=== PATIENT | female | born 1950 | race Caucasian/White ===

== ENCOUNTER → 2020-08-19 10:15 | Outpatient (BNV) | payer MEDICARE, MEDICAID, SELFPAY | PROVIDERS: PCP Internal Medicine; Visit Provider Internal Medicine Medical Oncology | DX: I26.99 Other pulmonary embolism without acute cor pulmonale (principal); D51.9 Vitamin B12 deficiency anemia, unspecified; D05.11 Intraductal carcinoma in situ of right breast | CPT/HCPCS: 99213; 99214 ==

== ENCOUNTER → 2020-09-01 08:16 | Outpatient (BNVA) | payer MEDICARE, MEDICAID, SELFPAY | PROVIDERS: PCP Internal Medicine; Visit Provider Internal Medicine | DX: I26.99 Other pulmonary embolism without acute cor pulmonale (principal); Z86.718 Personal history of other venous thrombosis and embolism; Z51.81 Encounter for therapeutic drug level monitoring; Z79.01 Long term (current) use of anticoagulants | CPT/HCPCS: 85610; 99211 ==

== ENCOUNTER → 2020-09-22 10:32 | Outpatient (BNVA) | payer MEDICARE, MEDICAID, SELFPAY | PROVIDERS: PCP Internal Medicine; Visit Provider Internal Medicine | DX: I26.99 Other pulmonary embolism without acute cor pulmonale (principal); Z86.718 Personal history of other venous thrombosis and embolism; Z51.81 Encounter for therapeutic drug level monitoring; Z79.01 Long term (current) use of anticoagulants | CPT/HCPCS: 85610; 99211 ==

== ENCOUNTER → 2020-10-13 10:14 | Outpatient (BNVA) | payer MEDICARE, MEDICAID, SELFPAY | PROVIDERS: PCP Internal Medicine; Visit Provider Internal Medicine | DX: I26.99 Other pulmonary embolism without acute cor pulmonale (principal); Z86.718 Personal history of other venous thrombosis and embolism; Z51.81 Encounter for therapeutic drug level monitoring; Z79.01 Long term (current) use of anticoagulants | CPT/HCPCS: 85610; 99211 ==

== ENCOUNTER → 2020-10-27 11:01 | Outpatient (BNVA) | payer MEDICARE, MEDICAID, SELFPAY | PROVIDERS: PCP Internal Medicine; Visit Provider Internal Medicine | DX: I26.99 Other pulmonary embolism without acute cor pulmonale (principal); Z86.718 Personal history of other venous thrombosis and embolism; Z51.81 Encounter for therapeutic drug level monitoring; Z79.01 Long term (current) use of anticoagulants | CPT/HCPCS: 85610; 99211 ==

== ENCOUNTER → 2020-11-02 10:30 | Outpatient (BNVA) | payer MEDICARE, MEDICAID, SELFPAY | PROVIDERS: PCP Internal Medicine; Visit Provider Internal Medicine | DX: I26.99 Other pulmonary embolism without acute cor pulmonale (principal); I82.402 Acute embolism and thrombosis of unspecified deep veins of left lower extremity; Z51.81 Encounter for therapeutic drug level monitoring; Z79.01 Long term (current) use of anticoagulants | CPT/HCPCS: 85610; 99211 ==

== ENCOUNTER → 2020-11-08 09:26 | Outpatient (BNVA) | payer MEDICARE, MEDICAID, SELFPAY | PROVIDERS: PCP Internal Medicine; Visit Provider Internal Medicine | DX: I26.99 Other pulmonary embolism without acute cor pulmonale (principal); Z86.718 Personal history of other venous thrombosis and embolism; Z51.81 Encounter for therapeutic drug level monitoring; Z79.01 Long term (current) use of anticoagulants | CPT/HCPCS: 85610; 99211 ==

== ENCOUNTER → 2020-11-12 09:20 | Outpatient (BNVA) | payer MEDICARE, MEDICAID, SELFPAY | PROVIDERS: PCP Internal Medicine; Visit Provider Internal Medicine | DX: I26.99 Other pulmonary embolism without acute cor pulmonale (principal); Z86.718 Personal history of other venous thrombosis and embolism; Z79.01 Long term (current) use of anticoagulants; Z51.81 Encounter for therapeutic drug level monitoring | CPT/HCPCS: 85610; 99211 ==

== ENCOUNTER → 2020-11-19 08:59 | Outpatient (BNVA) | payer MEDICARE, MEDICAID, SELFPAY | PROVIDERS: PCP Internal Medicine; Visit Provider Internal Medicine | DX: I82.402 Acute embolism and thrombosis of unspecified deep veins of left lower extremity (principal); I26.99 Other pulmonary embolism without acute cor pulmonale; Z51.81 Encounter for therapeutic drug level monitoring; Z79.01 Long term (current) use of anticoagulants | CPT/HCPCS: 85610; 99211 ==

== ENCOUNTER → 2020-11-23 09:04 | Outpatient (BNVA) | payer MEDICARE, MEDICAID, SELFPAY | PROVIDERS: PCP Internal Medicine; Visit Provider Surgery | DX: N39.41 Urge incontinence (principal) | CPT/HCPCS: 99212; Q3014 ==

== ENCOUNTER → 2020-12-03 08:42 | Outpatient (BNVA) | payer MEDICARE, MEDICAID, SELFPAY | PROVIDERS: PCP Internal Medicine; Visit Provider Internal Medicine | DX: I82.402 Acute embolism and thrombosis of unspecified deep veins of left lower extremity (principal); I26.99 Other pulmonary embolism without acute cor pulmonale; Z51.81 Encounter for therapeutic drug level monitoring; Z79.01 Long term (current) use of anticoagulants | CPT/HCPCS: 85610; 99211 ==

== ENCOUNTER 2020-12-17 09:29 | Outpatient (REF) | payer MEDICARE, MEDICAID, SELFPAY ==
[2020-12-17 11:24] LABS: Cholesterol 213 mg/dL; HDL Cholesterol 53 mg/dL; LDL Cholesterol Calculated 137 mg/dl; Triglycerides 115 mg/dL
== END 2020-12-17 09:30 | disposition home or self-care (01) ==
LOC: HO.LAB 09:29
PROVIDERS: PCP Internal Medicine; Visit Provider Internal Medicine
DX: Z86.718 Personal history of other venous thrombosis and embolism (principal); E78.5 Hyperlipidemia, unspecified; Z51.81 Encounter for therapeutic drug level monitoring; Z79.01 Long term (current) use of anticoagulants
CPT/HCPCS: 36415; 80061; 85610; 99211

== ENCOUNTER → 2021-01-07 10:10 | Outpatient (BNVA) | payer MEDICARE, MEDICAID, SELFPAY | PROVIDERS: PCP Internal Medicine; Visit Provider Internal Medicine | DX: I26.99 Other pulmonary embolism without acute cor pulmonale (principal); Z86.718 Personal history of other venous thrombosis and embolism; Z51.81 Encounter for therapeutic drug level monitoring; Z79.01 Long term (current) use of anticoagulants | CPT/HCPCS: 85610; 99211 ==

== ENCOUNTER → 2021-02-04 09:30 | Outpatient (BNVA) | payer MEDICARE, MEDICAID, SELFPAY | PROVIDERS: PCP Internal Medicine; Visit Provider Internal Medicine | DX: I26.99 Other pulmonary embolism without acute cor pulmonale (principal); Z86.718 Personal history of other venous thrombosis and embolism; Z79.01 Long term (current) use of anticoagulants; Z51.81 Encounter for therapeutic drug level monitoring | CPT/HCPCS: 85610; 99211 ==

== ENCOUNTER 2021-02-08 09:45 | Outpatient (REF) | payer MEDICARE, MEDICAID, SELFPAY ==
--- NOTE | ~2021-02-08 | MM_ITS ---
EXAMINATION: MM SCREENING DIGITAL BREAST TOMOSYNTHESIS, LEFT CLINICAL INFORMATION: Screening. Asymptomatic. Prior right mastectomy 2011 for breast cancer. Due for yearly. COMPARISON: Mammography: 10/01/2018, 09/13/2017, 09/11/2016 TECHNIQUE: Digital breast tomosynthesis is performed in both the craniocaudal and mediolateral oblique views along with computer-aided detection (CAD). Synthesized 2D images are generated from the tomosynthesis. FINDINGS: There are scattered areas of fibroglandular density (ACR BI-RADS breast composition Category b). There are no significant masses, abnormal calcifications, or other abnormalities. Parenchymal pattern is similar to prior studies. The skin contours are smooth. MM/MM tomosynthesis screening LT IMPRESSION: No mammographic evidence of malignancy. ASSESSMENT: BI-RADS 1: Negative RECOMMENDATION: Routine annual mammography screening. This patient's information was entered into a reminder system with a target due date for their next mammogram.
== END 2021-02-08 09:46 | disposition home or self-care (01) ==
LOC: HO.MAMMO 09:45
PROVIDERS: PCP Internal Medicine; Visit Provider Surgery
DX: Z12.31 Encounter for screening mammogram for malignant neoplasm of breast (principal)
CPT/HCPCS: 77063; 77067

== ENCOUNTER → 2021-02-16 09:17 | Outpatient (BNVA) | payer MEDICARE, MEDICAID, SELFPAY | PROVIDERS: PCP Internal Medicine; Visit Provider Internal Medicine | DX: Z86.718 Personal history of other venous thrombosis and embolism (principal); Z79.01 Long term (current) use of anticoagulants; Z51.81 Encounter for therapeutic drug level monitoring | CPT/HCPCS: 85610; 99211 ==

== ENCOUNTER → 2021-03-02 08:59 | Outpatient (BNVA) | payer MEDICARE, MEDICAID, SELFPAY | PROVIDERS: PCP Internal Medicine; Visit Provider Internal Medicine | DX: I26.99 Other pulmonary embolism without acute cor pulmonale (principal); Z86.718 Personal history of other venous thrombosis and embolism; Z51.81 Encounter for therapeutic drug level monitoring; Z79.01 Long term (current) use of anticoagulants | CPT/HCPCS: 85610; 99211 ==

== ENCOUNTER → 2021-03-07 08:32 | Outpatient (BNVA) | payer MEDICARE, MEDICAID, SELFPAY | PROVIDERS: PCP Internal Medicine; Visit Provider Internal Medicine | DX: I26.99 Other pulmonary embolism without acute cor pulmonale (principal); Z86.718 Personal history of other venous thrombosis and embolism; Z51.81 Encounter for therapeutic drug level monitoring; Z79.01 Long term (current) use of anticoagulants | CPT/HCPCS: 85610; 99211 ==

== ENCOUNTER → 2021-03-21 08:27 | Outpatient (BNVA) | payer MEDICARE, MEDICAID, SELFPAY | PROVIDERS: PCP Internal Medicine; Visit Provider Internal Medicine | DX: I26.99 Other pulmonary embolism without acute cor pulmonale (principal); Z86.718 Personal history of other venous thrombosis and embolism; Z51.81 Encounter for therapeutic drug level monitoring; Z79.01 Long term (current) use of anticoagulants | CPT/HCPCS: 85610; 99211 ==

== ENCOUNTER → 2021-03-25 09:47 | Outpatient (BNVA) | payer MEDICARE, MEDICAID, SELFPAY | PROVIDERS: PCP Internal Medicine; Visit Provider Internal Medicine | DX: I26.99 Other pulmonary embolism without acute cor pulmonale (principal); Z86.718 Personal history of other venous thrombosis and embolism; Z51.81 Encounter for therapeutic drug level monitoring; Z79.01 Long term (current) use of anticoagulants | CPT/HCPCS: 85610; 99211 ==

== ENCOUNTER → 2021-04-01 08:34 | Outpatient (BNVA) | payer MEDICARE, MEDICAID, SELFPAY | PROVIDERS: PCP Internal Medicine; Visit Provider Internal Medicine | DX: I26.99 Other pulmonary embolism without acute cor pulmonale (principal); Z86.718 Personal history of other venous thrombosis and embolism; Z51.81 Encounter for therapeutic drug level monitoring; Z79.01 Long term (current) use of anticoagulants | CPT/HCPCS: 85610; 99211 ==

== ENCOUNTER → 2021-04-14 08:35 | Outpatient (BNVA) | payer MEDICARE, MEDICAID, SELFPAY | PROVIDERS: PCP Internal Medicine; Visit Provider Internal Medicine | DX: I26.99 Other pulmonary embolism without acute cor pulmonale (principal); Z86.718 Personal history of other venous thrombosis and embolism; Z51.81 Encounter for therapeutic drug level monitoring; Z79.01 Long term (current) use of anticoagulants | CPT/HCPCS: 85610; 99211 ==

== ENCOUNTER → 2021-05-05 08:48 | Outpatient (BNVA) | payer MEDICARE, MEDICAID, SELFPAY | PROVIDERS: PCP Internal Medicine; Visit Provider Internal Medicine | DX: I26.99 Other pulmonary embolism without acute cor pulmonale (principal); Z86.718 Personal history of other venous thrombosis and embolism; Z51.81 Encounter for therapeutic drug level monitoring; Z79.01 Long term (current) use of anticoagulants | CPT/HCPCS: 85610; 99211 ==

== ENCOUNTER → 2021-05-19 08:40 | Outpatient (BNVA) | payer MEDICARE, MEDICAID, SELFPAY | PROVIDERS: PCP Internal Medicine; Visit Provider Internal Medicine | DX: I26.99 Other pulmonary embolism without acute cor pulmonale (principal); Z86.73 Personal history of transient ischemic attack (TIA), and cerebral infarction without residual deficits; Z51.81 Encounter for therapeutic drug level monitoring; Z79.01 Long term (current) use of anticoagulants | CPT/HCPCS: 85610; 99211 ==

== ENCOUNTER → 2021-06-02 08:41 | Outpatient (BNVA) | payer MEDICARE, MEDICAID, SELFPAY | PROVIDERS: PCP Internal Medicine; Visit Provider Internal Medicine | DX: I26.99 Other pulmonary embolism without acute cor pulmonale (principal); Z86.718 Personal history of other venous thrombosis and embolism; Z79.01 Long term (current) use of anticoagulants; Z51.81 Encounter for therapeutic drug level monitoring | CPT/HCPCS: 85610; 99211 ==

== ENCOUNTER → 2021-06-23 08:38 | Outpatient (BNVA) | payer MEDICARE, MEDICAID, SELFPAY | PROVIDERS: PCP Internal Medicine; Visit Provider Internal Medicine | DX: I26.99 Other pulmonary embolism without acute cor pulmonale (principal); Z86.718 Personal history of other venous thrombosis and embolism; Z51.81 Encounter for therapeutic drug level monitoring; Z79.01 Long term (current) use of anticoagulants | CPT/HCPCS: 85610; 99211 ==

== ENCOUNTER 2021-06-25 07:40 | Outpatient (REF) | payer MEDICARE, MEDICAID, SELFPAY ==
[2021-06-25 08:24] LABS: Prothrombin Time 23.6 SEC (9.9-13.0)
== END 2021-06-25 07:41 | disposition home or self-care (01) ==
LOC: HO.LAB 07:40
PROVIDERS: PCP Internal Medicine; Visit Provider Internal Medicine
DX: Z51.81 Encounter for therapeutic drug level monitoring (principal)
CPT/HCPCS: 36415; 85610

== ENCOUNTER → 2021-06-28 08:26 | Outpatient (BNVA) | payer MEDICARE, MEDICAID, SELFPAY | PROVIDERS: PCP Internal Medicine; Visit Provider Internal Medicine | DX: I26.99 Other pulmonary embolism without acute cor pulmonale (principal); Z86.718 Personal history of other venous thrombosis and embolism; Z51.81 Encounter for therapeutic drug level monitoring; Z79.01 Long term (current) use of anticoagulants | CPT/HCPCS: 85610; 99211 ==

== ENCOUNTER → 2021-07-12 08:43 | Outpatient (BNVA) | payer MEDICARE, MEDICAID, SELFPAY | PROVIDERS: PCP Internal Medicine; Visit Provider Internal Medicine | DX: I26.99 Other pulmonary embolism without acute cor pulmonale (principal); Z86.718 Personal history of other venous thrombosis and embolism; Z51.81 Encounter for therapeutic drug level monitoring; Z79.01 Long term (current) use of anticoagulants | CPT/HCPCS: 85610; 99211 ==

== ENCOUNTER → 2021-07-26 08:45 | Outpatient (BNVA) | payer MEDICARE, MEDICAID, SELFPAY | PROVIDERS: PCP Internal Medicine; Visit Provider Internal Medicine | DX: I26.99 Other pulmonary embolism without acute cor pulmonale (principal); Z86.718 Personal history of other venous thrombosis and embolism; Z51.81 Encounter for therapeutic drug level monitoring; Z79.01 Long term (current) use of anticoagulants | CPT/HCPCS: 85610; 99211 ==

== ENCOUNTER → 2021-08-16 08:42 | Outpatient (BNVA) | payer MEDICARE, MEDICAID, SELFPAY | PROVIDERS: PCP Internal Medicine; Visit Provider Internal Medicine | DX: Z86.718 Personal history of other venous thrombosis and embolism (principal); Z51.81 Encounter for therapeutic drug level monitoring; Z79.01 Long term (current) use of anticoagulants | CPT/HCPCS: 85610 ==

== ENCOUNTER → 2021-09-13 08:39 | Outpatient (BNVA) | payer MEDICARE, MEDICAID, SELFPAY | PROVIDERS: PCP Internal Medicine; Visit Provider Internal Medicine | DX: I26.99 Other pulmonary embolism without acute cor pulmonale (principal); Z86.718 Personal history of other venous thrombosis and embolism; Z51.81 Encounter for therapeutic drug level monitoring; Z79.01 Long term (current) use of anticoagulants | CPT/HCPCS: 85610; 99211 ==

== ENCOUNTER → 2021-10-11 08:38 | Outpatient (BNVA) | payer MEDICARE, MEDICAID, SELFPAY | PROVIDERS: PCP Internal Medicine; Visit Provider Internal Medicine | DX: I26.99 Other pulmonary embolism without acute cor pulmonale (principal); Z86.718 Personal history of other venous thrombosis and embolism; Z51.81 Encounter for therapeutic drug level monitoring; Z79.01 Long term (current) use of anticoagulants | CPT/HCPCS: 85610; 99211 ==

== ENCOUNTER → 2021-11-08 08:39 | Outpatient (BNVA) | payer MEDICARE, MEDICAID, SELFPAY | PROVIDERS: PCP Internal Medicine; Visit Provider Internal Medicine | DX: I26.99 Other pulmonary embolism without acute cor pulmonale (principal); Z86.718 Personal history of other venous thrombosis and embolism; Z51.81 Encounter for therapeutic drug level monitoring; Z79.01 Long term (current) use of anticoagulants | CPT/HCPCS: 85610; 99211 ==

== ENCOUNTER → 2021-11-22 08:48 | Outpatient (BNVA) | payer MEDICARE, MEDICAID, SELFPAY | PROVIDERS: PCP Internal Medicine; Visit Provider Internal Medicine | DX: I26.99 Other pulmonary embolism without acute cor pulmonale (principal); Z86.718 Personal history of other venous thrombosis and embolism; Z51.81 Encounter for therapeutic drug level monitoring; Z79.01 Long term (current) use of anticoagulants | CPT/HCPCS: 85610; 99211 ==

== ENCOUNTER → 2021-11-24 08:42 | Outpatient (BNVA) | payer MEDICARE, MEDICAID, SELFPAY | PROVIDERS: PCP Internal Medicine; Visit Provider Internal Medicine | DX: I26.99 Other pulmonary embolism without acute cor pulmonale (principal); Z86.718 Personal history of other venous thrombosis and embolism; Z51.81 Encounter for therapeutic drug level monitoring; Z79.01 Long term (current) use of anticoagulants | CPT/HCPCS: 85610; 99211 ==

== ENCOUNTER → 2021-12-08 08:43 | Outpatient (BNVA) | payer MEDICARE, MEDICAID, SELFPAY | PROVIDERS: PCP Internal Medicine; Visit Provider Internal Medicine | DX: I26.99 Other pulmonary embolism without acute cor pulmonale (principal); Z86.718 Personal history of other venous thrombosis and embolism; Z51.81 Encounter for therapeutic drug level monitoring; Z79.01 Long term (current) use of anticoagulants | CPT/HCPCS: 85610; 99211 ==

== ENCOUNTER 2021-12-23 08:20 | Outpatient (REF) | payer MEDICARE, MEDICAID, SELFPAY ==
--- NOTE | ~2021-12-23 | XR_ITS ---
EXAMINATION: XR FOOT, RIGHT CLINICAL INFORMATION: Right toe pain. COMPARISON: 05/05/2019. TECHNIQUE: AP, lateral, and oblique views of the right foot. FINDINGS: There is osteopenia. No acute fracture or dislocation is evident. Patient appears be status post previous surgery about the 1st metatarsophalangeal joint. There is degenerative joint disease involving the 1st metatarsophalangeal joint with loss of joint space and marginal sclerosis and spurring. Small plantar and Achilles calcaneal spurs are present. The degenerative change of the first toe has progressed since study of 05/05/2019. XR/XR foot RT min 3V IMPRESSION: Osteopenia. Progression of degenerative joint disease involving the 1st metatarsophalangeal joint. No acute fracture or dislocation is evident. Calcaneal spurs.
== END 2021-12-23 08:21 | disposition home or self-care (01) ==
LOC: HO.XRAY 08:20
PROVIDERS: Absent Provider Internal Medicine; PCP Internal Medicine; Visit Provider Internal Medicine
DX: I26.99 Other pulmonary embolism without acute cor pulmonale (principal); Z86.718 Personal history of other venous thrombosis and embolism; Z51.81 Encounter for therapeutic drug level monitoring; Z79.01 Long term (current) use of anticoagulants; M79.674 Pain in right toe(s)
CPT/HCPCS: 73630; 85610; 99211

== ENCOUNTER → 2021-12-29 13:27 | Outpatient (BNVA) | payer MEDICARE, MEDICAID, SELFPAY | PROVIDERS: PCP Internal Medicine; Visit Provider Internal Medicine | DX: I26.99 Other pulmonary embolism without acute cor pulmonale (principal); Z86.718 Personal history of other venous thrombosis and embolism; Z51.81 Encounter for therapeutic drug level monitoring; Z79.01 Long term (current) use of anticoagulants | CPT/HCPCS: 85610; 99211 ==

== ENCOUNTER → 2022-01-10 08:44 | Outpatient (BNVA) | payer MEDICARE, MEDICAID, SELFPAY | PROVIDERS: PCP Internal Medicine; Visit Provider Internal Medicine | DX: I26.99 Other pulmonary embolism without acute cor pulmonale (principal); Z86.718 Personal history of other venous thrombosis and embolism; Z51.81 Encounter for therapeutic drug level monitoring; Z79.01 Long term (current) use of anticoagulants | CPT/HCPCS: 85610; 99211 ==

== ENCOUNTER → 2022-01-23 08:36 | Outpatient (BNVA) | payer MEDICARE, MEDICAID, SELFPAY | PROVIDERS: PCP Internal Medicine; Visit Provider Internal Medicine | DX: I26.99 Other pulmonary embolism without acute cor pulmonale (principal); Z86.718 Personal history of other venous thrombosis and embolism; Z79.01 Long term (current) use of anticoagulants; Z51.81 Encounter for therapeutic drug level monitoring | CPT/HCPCS: 85610; 99211 ==

== ENCOUNTER → 2022-01-30 09:45 | Outpatient (BNVA) | payer MEDICARE, MEDICAID, SELFPAY | PROVIDERS: PCP Internal Medicine; Visit Provider Internal Medicine | DX: I26.99 Other pulmonary embolism without acute cor pulmonale (principal); Z86.718 Personal history of other venous thrombosis and embolism; Z51.81 Encounter for therapeutic drug level monitoring; Z79.01 Long term (current) use of anticoagulants | CPT/HCPCS: 85610 ==

== ENCOUNTER → 2022-02-03 08:46 | Outpatient (BNVA) | payer MEDICARE, MEDICAID, SELFPAY | PROVIDERS: PCP Internal Medicine; Visit Provider Internal Medicine | DX: I26.99 Other pulmonary embolism without acute cor pulmonale (principal); Z86.718 Personal history of other venous thrombosis and embolism; Z51.81 Encounter for therapeutic drug level monitoring; Z79.01 Long term (current) use of anticoagulants | CPT/HCPCS: 85610; 99211 ==

== ENCOUNTER → 2022-02-13 08:39 | Outpatient (BNVA) | payer MEDICARE, MEDICAID, SELFPAY | PROVIDERS: PCP Internal Medicine; Visit Provider Internal Medicine | DX: I26.99 Other pulmonary embolism without acute cor pulmonale (principal); Z86.718 Personal history of other venous thrombosis and embolism; Z51.81 Encounter for therapeutic drug level monitoring; Z79.01 Long term (current) use of anticoagulants | CPT/HCPCS: 85610; 99211 ==

== ENCOUNTER → 2022-02-27 09:06 | Outpatient (BNVA) | payer MEDICARE, MEDICAID, SELFPAY | PROVIDERS: PCP Internal Medicine; Visit Provider Internal Medicine | DX: I26.99 Other pulmonary embolism without acute cor pulmonale (principal); Z86.718 Personal history of other venous thrombosis and embolism; Z79.01 Long term (current) use of anticoagulants; Z51.81 Encounter for therapeutic drug level monitoring | CPT/HCPCS: 85610; 99211 ==

== ENCOUNTER → 2022-03-06 08:43 | Outpatient (BNVA) | payer MEDICARE, MEDICAID, SELFPAY | PROVIDERS: PCP Internal Medicine; Visit Provider Internal Medicine | DX: I26.99 Other pulmonary embolism without acute cor pulmonale (principal); Z86.718 Personal history of other venous thrombosis and embolism; Z79.01 Long term (current) use of anticoagulants; Z51.81 Encounter for therapeutic drug level monitoring | CPT/HCPCS: 85610; 99211 ==

== ENCOUNTER → 2022-03-13 08:44 | Outpatient (BNVA) | payer MEDICARE, MEDICAID, SELFPAY | PROVIDERS: PCP Internal Medicine; Visit Provider Internal Medicine | DX: I26.99 Other pulmonary embolism without acute cor pulmonale (principal); Z86.718 Personal history of other venous thrombosis and embolism; Z79.01 Long term (current) use of anticoagulants; Z51.81 Encounter for therapeutic drug level monitoring | CPT/HCPCS: 85610; 99211 ==

== ENCOUNTER → 2022-03-27 08:56 | Outpatient (BNVA) | payer MEDICARE, MEDICAID, SELFPAY | PROVIDERS: PCP Internal Medicine; Visit Provider Internal Medicine | DX: I26.99 Other pulmonary embolism without acute cor pulmonale (principal); Z86.718 Personal history of other venous thrombosis and embolism; Z79.01 Long term (current) use of anticoagulants; Z51.81 Encounter for therapeutic drug level monitoring | CPT/HCPCS: 85610; 99211 ==

== ENCOUNTER → 2022-04-07 08:39 | Outpatient (BNVA) | payer MEDICARE, MEDICAID, SELFPAY | PROVIDERS: PCP Internal Medicine; Visit Provider Internal Medicine | DX: I26.99 Other pulmonary embolism without acute cor pulmonale (principal); Z86.718 Personal history of other venous thrombosis and embolism; Z79.01 Long term (current) use of anticoagulants; Z51.81 Encounter for therapeutic drug level monitoring | CPT/HCPCS: 85610; 99211 ==

== ENCOUNTER → 2022-04-20 08:36 | Outpatient (BNVA) | payer MEDICARE, MEDICAID, SELFPAY | PROVIDERS: PCP Internal Medicine; Visit Provider Internal Medicine | DX: I26.99 Other pulmonary embolism without acute cor pulmonale (principal); Z86.718 Personal history of other venous thrombosis and embolism; Z79.01 Long term (current) use of anticoagulants; Z51.81 Encounter for therapeutic drug level monitoring | CPT/HCPCS: 85610; 99211 ==

== ENCOUNTER → 2022-04-24 08:38 | Outpatient (BNVA) | payer MEDICARE, MEDICAID, SELFPAY | PROVIDERS: PCP Internal Medicine; Visit Provider Internal Medicine | DX: I26.99 Other pulmonary embolism without acute cor pulmonale (principal); Z86.718 Personal history of other venous thrombosis and embolism; Z79.01 Long term (current) use of anticoagulants; Z51.81 Encounter for therapeutic drug level monitoring | CPT/HCPCS: 85610; 99211 ==

== ENCOUNTER → 2022-04-27 08:44 | Outpatient (BNVA) | payer MEDICARE, MEDICAID, SELFPAY | PROVIDERS: PCP Internal Medicine; Visit Provider Internal Medicine | DX: I26.99 Other pulmonary embolism without acute cor pulmonale (principal); Z86.718 Personal history of other venous thrombosis and embolism; Z51.81 Encounter for therapeutic drug level monitoring; Z79.01 Long term (current) use of anticoagulants | CPT/HCPCS: 85610; 99211 ==

== ENCOUNTER → 2022-05-04 09:05 | Outpatient (BNVA) | payer MEDICARE, MEDICAID, SELFPAY | PROVIDERS: PCP Internal Medicine; Visit Provider Internal Medicine | DX: I26.99 Other pulmonary embolism without acute cor pulmonale (principal); Z86.718 Personal history of other venous thrombosis and embolism; Z51.81 Encounter for therapeutic drug level monitoring; Z79.01 Long term (current) use of anticoagulants | CPT/HCPCS: 85610; 99211 ==

== ENCOUNTER → 2022-05-15 08:37 | Outpatient (BNVA) | payer MEDICARE, MEDICAID, SELFPAY | PROVIDERS: PCP Internal Medicine; Visit Provider Internal Medicine | DX: I26.99 Other pulmonary embolism without acute cor pulmonale (principal); Z86.718 Personal history of other venous thrombosis and embolism; Z51.81 Encounter for therapeutic drug level monitoring | CPT/HCPCS: 85610; 99211 ==

== ENCOUNTER → 2022-05-19 08:35 | Outpatient (BNVA) | payer MEDICARE, MEDICAID, SELFPAY | PROVIDERS: PCP Internal Medicine; Visit Provider Internal Medicine | DX: I26.99 Other pulmonary embolism without acute cor pulmonale (principal); Z86.718 Personal history of other venous thrombosis and embolism; Z79.01 Long term (current) use of anticoagulants; Z51.81 Encounter for therapeutic drug level monitoring | CPT/HCPCS: 85610; 99211 ==

== ENCOUNTER → 2022-06-02 08:48 | Outpatient (BNVA) | payer MEDICARE, MEDICAID, SELFPAY | PROVIDERS: PCP Internal Medicine; Visit Provider Internal Medicine | DX: I26.99 Other pulmonary embolism without acute cor pulmonale (principal); Z86.718 Personal history of other venous thrombosis and embolism; Z79.01 Long term (current) use of anticoagulants; Z51.81 Encounter for therapeutic drug level monitoring | CPT/HCPCS: 85610; 99211 ==

== ENCOUNTER 2022-06-06 13:20 | Outpatient (REF) | payer MEDICARE, MEDICAID, SELFPAY ==
--- NOTE | ~2022-06-06 | US_ITS ---
EXAMINATION: US VENOUS ULTRASOUND WITH DOPPLER LOWER EXTREMITY, LEFT CLINICAL INFORMATION: Status post severe DVT 2019 COMPARISON: None TECHNIQUE: Ultrasound of the deep veins is performed from the hip to the calf with compression sonography and color and pulse Doppler assessment. Spectral analysis with color-flow imaging is performed. FINDINGS: There are recanalized left common femoral to popliteal veins from old DVT. Normal forward flow seen in the left common femoral vein. The left superficial femoral vein proximal distal has slow flow and not completely compressible due to chronic changes. The left popliteal vein is patent with peripheral chronic clot. The left peroneal, left posterior tibial veins are somewhat patent. If the patient's symptoms persist, followup ultrasound in 5 days 7 days might be of value to exclude proximal propagation from a non-visualized calf vein. US/US venous duplex LE IMPRESSION: Slow recannulized left common femoral to popliteal veins. There is slow flow seen in all these veins but are patent. Left popliteal vein is patent with chronic changes. Left posterior tibial and peroneal veins are patent.
== END 2022-06-06 13:21 | disposition home or self-care (01) ==
LOC: HO.US 13:20
PROVIDERS: PCP Internal Medicine; Visit Provider Internal Medicine Medical Oncology
DX: I82.402 Acute embolism and thrombosis of unspecified deep veins of left lower extremity (principal)
CPT/HCPCS: 93971

== ENCOUNTER → 2022-06-23 08:29 | Outpatient (BNVA) | payer MEDICARE, MEDICAID, SELFPAY | PROVIDERS: PCP Internal Medicine; Visit Provider Internal Medicine | DX: I26.99 Other pulmonary embolism without acute cor pulmonale (principal); Z86.718 Personal history of other venous thrombosis and embolism; Z79.01 Long term (current) use of anticoagulants; Z51.81 Encounter for therapeutic drug level monitoring | CPT/HCPCS: 85610; 99211 ==

== ENCOUNTER 2022-06-30 13:35 | Outpatient (REF) | payer MEDICARE, MEDICAID, SELFPAY ==
--- NOTE | ~2022-06-30 | CT_ITS ---
EXAMINATION: CT CHEST SCREENING CLINICAL INFORMATION: Current smoker. 60-pack year history. COMPARISON: Previous chest CT most recent March 2020. TECHNIQUE: Multidetector volumetric CT imaging of the chest is performed without contrast using low dose technique. Additional 2D coronal and sagittal reformatted images and axial 3D maximum intensity projection (MIP) images are generated on the CT workstation. This CT examination was performed using dose optimization techniques as appropriate, variously including the following: *Automated exposure control *Adjustment of mA and/or kV according to patient size (this includes techniques or standardized protocols for targeted exams where dose is matched to indication/reason for exam; i.e. extremities or head) *Use of iterative reconstruction technique DLP: 39 mGy-cm. FINDINGS: LUNGS: There is evidence of mild paraseptal emphysema. There are increased peripheral interstitial markings suggestive of interstitial lung disease. There is a 5 mm peripheral or subpleural left lower lobe nodule adjacent to the descending thoracic aorta and left pleural fissure axial image 153 series 5 that is stable. There is a 3 mm calcified right upper lobe nodule axial image 216 series 5 that is stable. There are peripheral or subpleural parenchymal densities, for example axial image 252 series 5 in the right middle lobe and axial image 239 series 5 in the lingula and axial image 275 series 5 right lower lobe. These are similar to March 2022 exam. No new pulmonary nodule. No endobronchial or endotracheal lesion. MEDIASTINUM: Normal heart size. Coronary artery and aortic valve calcification. Normal caliber thoracic aorta. Prominent pulmonary arteries, main pulmonary artery measuring 3.3 cm, questionable for pulmonary artery hypertension. The mediastinum is otherwise normal. No adenopathy. PLEURA: There is no pleural effusion. No pleural mass or thickening. AXILLA: No enlarged axillary lymph nodes. The right breast appears to have been removed. UPPER ABDOMEN: Bilateral renal lesions, question representing cysts. OSSEOUS STRUCTURES: Degenerative changes of the spine. Lower thoracic compression fracture versus Schmorl's node. Stable sclerotic lesion in the posterior right T10 vertebral body. CT/CT lung screening IMPRESSION: Stable pulmonary nodules. Emphysema and interstitial lung disease. Coronary artery and aortic valve calcification. Prominent pulmonary arteries, questionable for pulmonary artery hypertension. ASSESSMENT: Lung-RADS category 2: Benign. RECOMMENDATION: Annual low-dose chest CT follow-up recommended.
== END 2022-06-30 13:36 | disposition home or self-care (01) ==
LOC: HO.CT 13:35
PROVIDERS: PCP Internal Medicine; Visit Provider Physician Assistant Medical
DX: Z12.2 Encounter for screening for malignant neoplasm of respiratory organs (principal); F17.210 Nicotine dependence, cigarettes, uncomplicated
CPT/HCPCS: 71271; G0296

== ENCOUNTER 2023-02-20 08:50 | Outpatient (REF) | payer MEDICARE, MEDICAID, SELFPAY ==
--- NOTE | ~2023-02-20 | MM_ITS ---
EXAMINATION: BONE DENSITOMETRY CLINICAL INDICATION: Osteoporosis. COMPARISON: Previous BD dated 03/06/2019 and baseline BD dated 12/15/2011. TECHNIQUE: Using a [employer] DXA System (software version: 13.1) manufactured by [employer], dual-energy x-ray absorptiometry was performed of the lumbar spine and left hip. The images are of good technical quality. Summary results are attached. FINDINGS: AP SPINE L1-L3 (excluding L4): The data of L1-L4 has been changed to exclude the L4 vertebral body, because degenerative change at this level may cause overestimation of lumbar spine density. Current: BMD 1.041 g/cm2, Z-score 0.2, T-score -1.1, osteopenia, 0.4% increase from previous, 8.1% decrease from baseline (<5% change is not significant). Prior: BMD 1.037 g/cm2. Baseline: BMD 1.133 g/cm2. LEFT FEMUR, NECK: Current: BMD 0.762 g/cm2, Z-score -0.4, T-score -2.0, osteopenia. Prior: BMD 0.797 g/cm2. Baseline: BMD 0.823 g/cm2. LEFT FEMUR, TOTAL: Current: BMD 0.748 g/cm2, Z-score -0.7, T-score -2.1, osteopenia, 3.4% decrease from previous, 11.3% decrease from baseline (<5% change is not significant). Prior: BMD 0.774 g/cm2. Baseline: BMD 0.843 g/cm2. IDENTIFIED RISK FACTORS: Early menopause, secondary osteoporosis, family history (parental hip fracture), tobacco use (current smoker). HISTORY OF FRACTURE: None listed. MEDICATIONS: ERT/SERMS. MM/XR DEXA axial skeleton IMPRESSION: 1. DIAGNOSIS: Osteopenia based on the lowest T-score value of -2.1 in the total femur applying World Health Organization criteria. 2. 10-YEAR FRACTURE RISK PREDICTION, FRAX: Not performed in this patient on estrogen or bone building treatments. 3. Treatment Recommendations: NOF guidelines recommend consideration for treatment in postmenopausal women and men age 50 and older presenting with the following: -A hip or vertebral (clinical or morphometric) fracture. -T-score less than or equal to -2.5 at the femoral neck or spine after appropriate evaluation to exclude secondary causes. -Low bone mass at the hip or spine and a 10-year fracture probability by FRAX of greater than or equal to 3% for hip fracture or greater than or equal to 20% for major osteoporotic fracture based on the [place] adapted WHO algorithm. 4. Other Recommendations: All treatment decisions require clinical judgment and consideration of individual patient factors, including patient preferences, comorbidities, previous drug use, risk factors not captured in the FRAX model (e.g. frailty, falls, vitamin D deficiency, increased bone turnover, interval significant decline in bone density) and possible under or overestimation of fracture risk by FRAX. Additional medical evaluation for secondary cause of low bone mineral density may be appropriate. FUTURE SCAN RECOMMENDATION: People with diagnosed cases of osteoporosis or at high risk for fracture should have regular bone mineral density tests. For patients eligible for Medicare, routine testing is allowed once every 2 years. The testing frequency can be increased to one year for patients who have rapidly progressing disease, those who are receiving or discontinuing medical therapy to restore bone mass, or have additional risk factors.
--- NOTE | ~2023-02-20 | MM_ITS ---
EXAMINATION: MM SCREENING DIGITAL BREAST TOMOSYNTHESIS, LEFT CLINICAL INFORMATION: Screening. Asymptomatic. Status post right mastectomy. COMPARISON: Mammography: February 08, 2021 and studies dating back to September 07, 2014 TECHNIQUE: Digital breast tomosynthesis is performed in both the craniocaudal and mediolateral oblique views along with computer-aided detection (CAD). Synthesized 2D images are generated from the tomosynthesis. FINDINGS: There are scattered areas of fibroglandular density (ACR BI-RADS breast composition Category b). There are no new significant masses, abnormal calcifications, or other abnormalities. MM/MM tomosynthesis screening LT IMPRESSION: No significant changes from prior exam. ASSESSMENT: BI-RADS 1: Negative RECOMMENDATION: Routine annual mammography screening. This patient's information was entered into a reminder system with a target due date for their next mammogram.
== END 2023-02-20 08:51 | disposition home or self-care (01) ==
LOC: HO.MAMMO 08:50
PROVIDERS: PCP Internal Medicine; Visit Provider Internal Medicine Medical Oncology
DX: Z12.31 Encounter for screening mammogram for malignant neoplasm of breast (principal); M81.0 Age-related osteoporosis without current pathological fracture
CPT/HCPCS: 77063; 77067; 77080

== ENCOUNTER 2023-06-04 10:56 | Day surgery (SDC) | payer MEDICARE, MEDICAID, SELFPAY ==
--- NOTE | 2023-03-23 10:36 | P.CONAN_ITS ---
HPI - Anesthesia Eval Consult details Narrative: 72yo F for Upper Endoscopy and Colonoscopy Eliquis for LLE DVT PMFSH Active Problems Active Problems: All Active Problems (Updated 01/08/23 @ 09:55 by Kenyon Tanner MD) Pulmonary emboli (Acute ~12/2019) Personal history of nicotine dependence (Acute) Current use of anticoagulant therapy (Acute ~2019) Urgency of micturition (Acute) Urge incontinence (Acute) B12 deficiency anemia (Acute) Past Medical History Medical History (Updated 01/08/23 @ 09:55 by Kenyon Tanner MD) Arthritis CAD (coronary artery disease) COPD (chronic obstructive pulmonary disease) Ductal carcinoma in situ (DCIS) of right breast (~2010) History of CVA (cerebrovascular accident) (~2005) History of non-ST elevation myocardial infarction (NSTEMI) (~2011) Hyperlipidemia Hypertension Osteopenia (~2011) Personal history of nicotine dependence Pulmonary emboli (~12/2019) Tubular adenoma of colon (~2003) Family History Family History Mother Hx of skin cancer, basal cell Surgical History Surgical History History of colonoscopy History of coronary angioplasty with insertion of stent (~2011) History of lithotripsy (~2012) History of lumpectomy of right breast (~2010) History of reversal of tubal ligation History of right mastectomy (~2011) Social History Social History Household Members: None Housing: Apartment Are you a primary day care assistant to a significant other at home: No Do you 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 If so, by whom?: No Advance Directives: No Advance Directives Information Provided: No Do you have thoughts of harming others: None Do you have a plan to hurt others: No Plan Do you have the means to hurt others: No Recently lost weight without trying: No Eating poorly because of decreased appetite: No Patient : No service: No Current occupational status: disabled Meds Allergies Allergy/AdvReac Type Severity Reaction Status Date / Time hydrocodone [Vicodin] Allergy Unknown swelling Verified 01/08/23 09:38 ALL OVER Home Medications Medication Instructions Recorded Confirmed Last Taken Type clonazepam 0.5 mg tablet 0.5 mg PO BID PRN Sleep 08/19/20 01/08/23 Unknown History clonidine HCl 0.2 mg tablet 0.2 mg PO BEDTIME 08/19/20 01/08/23 Unknown History escitalopram oxalate 20 mg tablet 20 mg PO DAILY 08/19/20 01/08/23 Unknown History (Lexapro) fluticasone 100 mcg-salmeterol 50 100 inh inhalation DAILY 08/19/20 01/08/23 Unknown History mcg/dose blistr powdr for inhalation (Advair Diskus) metoprolol succinate 25 mg 25 mg PO DAILY 08/19/20 01/08/23 Unknown History tablet,extended release 24 hr acetaminophen 650 mg 650 mg PO Q8H PRN Pain 11/23/20 01/08/23 Unknown History tablet,extended release albuterol sulfate 90 mcg/actuation 90 mcg inhalation DAILY 11/23/20 01/08/23 Unknown History aerosol inhaler nitroglycerin 0.4 mg sublingual 0.4 mg sublingual DAILY 11/23/20 01/08/23 Unknown History tablet furosemide 20 mg tablet 20 mg PO DAILY 12/03/20 01/08/23 Unknown History rosuvastatin 20 mg tablet 20 mg PO BEDTIME 12/03/20 01/08/23 Unknown History Exam Exam Date and Time: March 23, 2023 1030
--- NOTE | 2023-06-01 12:19 | HO.ANESPROP2 ---
Documented by User: Nancy Hunt NP 06/01/23 12:22 HPI - Anesthesia Eval Consult details Narrative: 73yo F for Colonoscopy Cardiac optimized [facility] Active Problems Active Problems: All Active Problems (Updated 01/08/23 @ 09:55 by Kenyon Tanner MD) Pulmonary emboli (Acute ~12/2019) Personal history of nicotine dependence (Acute) Current use of anticoagulant therapy (Acute ~2019) Urgency of micturition (Acute) Urge incontinence (Acute) B12 deficiency anemia (Acute) Past Medical History Medical History (Updated 01/08/23 @ 09:55 by Kenyon Tanner MD) Arthritis CAD (coronary artery disease) COPD (chronic obstructive pulmonary disease) Ductal carcinoma in situ (DCIS) of right breast (~2010) History of CVA (cerebrovascular accident) (~2005) History of non-ST elevation myocardial infarction (NSTEMI) (~2011) Hyperlipidemia Hypertension Osteopenia (~2011) Personal history of nicotine dependence Pulmonary emboli (~12/2019) Tubular adenoma of colon (~2003) Family History Family History Mother Hx of skin cancer, basal cell Surgical History Surgical History History of colonoscopy History of coronary angioplasty with insertion of stent (~2011) History of lithotripsy (~2012) History of lumpectomy of right breast (~2010) History of reversal of tubal ligation History of right mastectomy (~2011) Social History Social History Household Members: None Housing: Apartment Are you a primary vp care management to a significant other at home: No 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) Patient Tobacco Use Status: Current everyday Tobacco user Tobacco use type: Cigarette Cigarettes Per Day: 5 Years Smoked: (current smoker, onset 21yo, 1ppd x 51yrs, now 3-5cig/day - 40+PYH) Are you DNR?: No Advance Directives: No Advance Directives Information Provided: Yes service: No Current occupational status: disabled Meds Allergies Allergy/AdvReac Type Severity Reaction Status Date / Time hydrocodone [Vicodin] Allergy Unknown swelling Verified 01/08/23 09:38 ALL OVER Home Medications Medication Instructions Recorded Confirmed Last Taken Type clonazepam 0.5 mg tablet 0.5 mg PO BID PRN Sleep 08/19/20 01/08/23 Unknown History clonidine HCl 0.2 mg tablet 0.2 mg PO BEDTIME 08/19/20 01/08/23 Unknown History escitalopram oxalate 20 mg tablet 20 mg PO DAILY 08/19/20 01/08/23 Unknown History (Lexapro) fluticasone 100 mcg-salmeterol 50 100 inh inhalation DAILY 08/19/20 01/08/23 Unknown History mcg/dose blistr powdr for inhalation (Advair Diskus) metoprolol succinate 25 mg 25 mg PO DAILY 08/19/20 01/08/23 Unknown History tablet,extended release 24 hr acetaminophen 650 mg 650 mg PO Q8H PRN Pain 11/23/20 01/08/23 Unknown History tablet,extended release albuterol sulfate 90 mcg/actuation 90 mcg inhalation DAILY 11/23/20 01/08/23 Unknown History aerosol inhaler nitroglycerin 0.4 mg sublingual 0.4 mg sublingual DAILY 11/23/20 01/08/23 Unknown History tablet furosemide 20 mg tablet 20 mg PO DAILY 12/03/20 01/08/23 Unknown History rosuvastatin 20 mg tablet 20 mg PO BEDTIME 12/03/20 01/08/23 Unknown History Exam Exam Date and Time: June 01, 2023 1219 Pertinent Lab Results Pertinent Lab Results: Laboratory Tests 01/08/23 01/08/23 09:26 09:26 WBC 6.7 Hgb 14.0 Hct 44.1 Plt Count 213 Sodium 142 Potassium 4.5 Chloride 107 Carbon Dioxide 28 BUN 10 Creatinine 0.80 Assessment and Plan Assessment Anesthesia Assessment: Chart Reviewed Documented by User: Nancy Conner MD 06/04/23 13:00 [facility] Past Medical History Medical History (Updated 01/08/23 @ 09:55 by Kenyon Tanner MD) Arthritis CAD (coronary artery disease) COPD (chronic obstructive pulmonary disease) Ductal carcinoma in situ (DCIS) of right breast (~2010) History of CVA (cerebrovascular accident) (~2005) History of non-ST elevation myocardial infarction (NSTEMI) (~2011) Hyperlipidemia Hypertension Osteopenia (~2011) Personal history of nicotine dependence Pulmonary emboli (~12/2019) Tubular adenoma of colon (~2003) Family History Family History Mother Hx of skin cancer, basal cell Family history of problems with anesthesia: No Surgical History Surgical History History of colonoscopy History of coronary angioplasty with insertion of stent (~2011) History of lithotripsy (~2012) History of lumpectomy of right breast (~2010) History of reversal of tubal ligation History of right mastectomy (~2011) History of Problems with Anesthesia: No Social History Social History Household Members: None Housing: Apartment Are you a primary vp care management to a significant other at home: No 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) Patient Tobacco Use Status: Current everyday Tobacco user Tobacco use type: Cigarette Cigarettes Per Day: 5 Years Smoked: (current smoker, onset 21yo, 1ppd x 51yrs, now 3-5cig/day - 40+PYH) Are you DNR?: No Advance Directives: No Advance Directives Information Provided: Yes service: No Current occupational status: disabled Meds Allergies Allergy/AdvReac Type Severity Reaction Status Date / Time hydrocodone [Vicodin] Allergy Unknown swelling Verified 01/08/23 09:38 ALL OVER Home Medications Medication Instructions Recorded Confirmed Last Taken Type clonazepam 0.5 mg tablet 0.5 mg PO BID PRN Sleep 08/19/20 01/08/23 Unknown History clonidine HCl 0.2 mg tablet 0.2 mg PO BEDTIME 08/19/20 01/08/23 Unknown History escitalopram oxalate 20 mg tablet 20 mg PO DAILY 08/19/20 01/08/23 Unknown History (Lexapro) fluticasone 100 mcg-salmeterol 50 100 inh inhalation DAILY 08/19/20 01/08/23 Unknown History mcg/dose blistr powdr for inhalation (Advair Diskus) metoprolol succinate 25 mg 25 mg PO DAILY 08/19/20 01/08/23 Unknown History tablet,extended release 24 hr acetaminophen 650 mg 650 mg PO Q8H PRN Pain 11/23/20 01/08/23 Unknown History tablet,extended release albuterol sulfate 90 mcg/actuation 90 mcg inhalation DAILY 11/23/20 01/08/23 Unknown History aerosol inhaler nitroglycerin 0.4 mg sublingual 0.4 mg sublingual DAILY 11/23/20 01/08/23 Unknown History tablet furosemide 20 mg tablet 20 mg PO DAILY 12/03/20 01/08/23 Unknown History rosuvastatin 20 mg tablet 20 mg PO BEDTIME 12/03/20 01/08/23 Unknown History Exam Airway Mallampati Class: I TM Dist: >3cm Neck ROM: Full Loose/Missing/Broken Teeth: No Heart: rr Lungs: cta Assessment and Plan Assessment Anesthesia Assessment: Anesthesia Plan Discussed Final Anesthetic Review Family History of Problems with Anesthesia: No History of Problems with Anesthesia: No NPO: Yes ASA Class: II Final Preanesthetic Review: No Changes in Pt Med Stat, Meds/Allgs Chart Reviewed, Consent Obtained/Reviewed and Anes Risks/Benef Reviewed Patient Risk: Low Procedure Risk: Low Anesthetic Plan Anesthetic Plan: MAC: Disposition: Standard PACU
[2023-06-04 11:53] VITALS: BMI 32.6
[2023-06-04 11:57] VITALS: BP 160/75; PULSE 97; RESP 20; TEMP 36.6; O2SAT 97
[2023-06-04] MEDS: Lactated Ringers 1,000 ML 100 ML IVCONT (12:07)
[2023-06-04 14:15] VITALS: BP 125/70; PULSE 85; RESP 16; TEMP 36.1; O2SAT 98
--- NOTE | 2023-06-04 14:18 | P.BOP_ITS ---
Brief Operative Note Date of Service: 06/04/23 Pre-op diagnosis: Screening Post-op diagnosis: other (Polyps) Procedure: Colonoscopy to the cecum with hot snare polypectomy x 3. Surgeon: Ramiro Lincoln Anesthesia: MAC Was an Outpatient Scheduler used for this Procedure?: No Estimated blood loss (mL): 0 Pathology: other (A. Transverse colon polyp B. Polyps at 60cm) Condition: stable Disposition: PACU
[2023-06-04 14:30] VITALS: BP 125/70; PULSE 85; RESP 16; TEMP 36.1; O2SAT 98
--- NOTE | 2023-06-05 01:44 | OP_ITS ---
DATE OF SERVICE: 06/04/2023 SURGEON: Ramiro Lincoln MD INDICATIONS: The patient presents for evaluation of colorectal cancer screening. Full consent has been obtained from her for this, including risks of bleeding and perforation. PREOPERATIVE DIAGNOSIS: Colorectal cancer screening. POSTOPERATIVE DIAGNOSIS: PROCEDURE PERFORMED: Colonoscopy to the cecum with hot snare polypectomy. ESTIMATED BLOOD LOSS: COMPLICATIONS: ANESTHESIA: Monitored anesthesia care. ASSISTANTS: SPECIMENS: POSTOPERATIVE DIAGNOSES: Colorectal cancer screening, colon polyps, diverticulosis, and internal hemorrhoids. DESCRIPTION OF PROCEDURE: The patient was placed in the left lateral decubitus position. The digital rectal exam revealed no abnormalities. The Olympus video pediatric colonoscope was entered into the rectum and advanced easily to the cecum. Once in the cecum, I did identify normal-appearing cecal pouch with appendiceal orifice and a normal-appearing ileocecal valve. The entire cecum and ileocecal valve appeared normal. The scope was slowly withdrawn assessing all mucosal surfaces carefully. Preparation was excellent. In the proximal transverse colon was an approximately 10 mm polyp, which was removed by hot snare polypectomy and recovered by suction. The polypectomy site appeared clean, without any sign of residual polyp nor bleeding. At 60 cm were 2 flat, approximately 4 or 5 mm grossly adenomatous polyps, which were each removed by hot snare polypectomy and recovered by suction. The polypectomy sites appeared clean, without any sign of residual polyp nor bleeding. I did not visualize any other polyps, colitis, nor angiodysplasia. There was a mild amount of sigmoid diverticulosis. In the rectum, scope was retroflexed visualizing internal hemorrhoids, but no other pathology. The rectal mucosa appeared normal. The scope was straightened and withdrawn from the patient. She tolerated the procedure well and was returned to the recovery area in stable condition. IMPRESSION: 1. Colon polyps. 2. Diverticulosis. 3. Internal hemorrhoids. PLAN: The results of the pathology will be checked. Given these findings and her age, I do not think she would need any further screening colonoscopy. She was advised to resume her aspirin in 48 hours and resume her Eliquis in 72 hours. She will otherwise see me on a p.r.n. basis. This has all been discussed with her daughter, Debbie. MD SOILA Roque/YOMAIRAL / [id number]
== END 2023-06-04 14:58 | disposition home or self-care (01) ==
PROVIDERS: PCP Internal Medicine; Visit Provider Internal Medicine
PROC: 0DJD8ZZ Inspection of Lower Intestinal Tract, Via Natural or Artificial Opening Endoscopic (ICD-10-PCS; CPT 45378; principal; 2023-06-04 12:30)
DX: Z12.11 Encounter for screening for malignant neoplasm of colon (principal); D12.3 Benign neoplasm of transverse colon; D12.4 Benign neoplasm of descending colon; K57.30 Diverticulosis of large intestine without perforation or abscess without bleeding; K64.8 Other hemorrhoids; J44.9 Chronic obstructive pulmonary disease, unspecified; E78.5 Hyperlipidemia, unspecified; I69.351 Hemiplegia and hemiparesis following cerebral infarction affecting right dominant side; F17.210 Nicotine dependence, cigarettes, uncomplicated; Z86.718 Personal history of other venous thrombosis and embolism; Z85.3 Personal history of malignant neoplasm of breast; Z79.82 Long term (current) use of aspirin; Z79.01 Long term (current) use of anticoagulants; Z79.899 Other long term (current) drug therapy
CPT/HCPCS: 45385; 88305

== ENCOUNTER 2023-08-01 11:19 | Outpatient (REF) | payer MEDICARE, MEDICAID, SELFPAY ==
--- NOTE | ~2023-08-01 | US_ITS ---
EXAMINATION: US VENOUS ULTRASOUND WITH DOPPLER LOWER EXTREMITY, LEFT CLINICAL INFORMATION: Follow-up left leg DVT. Patient on anticoagulation. For COMPARISON: None available. 06/06/2022 TECHNIQUE: Ultrasound of the deep veins is performed from the hip to the calf with compression sonography and color and pulse Doppler assessment. Spectral analysis with color-flow imaging is performed. FINDINGS: There is normal venous compression and respiratory variation and augmented flow. The visualized common femoral vein, superficial femoral vein, profunda femoral vein, popliteal vein, and the trifurcation region shows no evidence of deep venous thrombosis. There is no significant popliteal fossa cyst. Contralateral right common femoral vein was scanned for comparison and was unremarkable. If the patient's symptoms persist, followup ultrasound in 5 days 7 days might be of value to exclude proximal propagation from a non-visualized calf vein. US/US venous duplex LE IMPRESSION: No DVT demonstrated in the left lower extremity. Specifically, no sonographic evidence of acute or chronic deep venous thrombosis patient with history of same.
== END 2023-08-01 11:20 | disposition home or self-care (01) ==
LOC: HO.US 11:19
PROVIDERS: PCP Internal Medicine; Visit Provider Internal Medicine Medical Oncology
DX: I82.402 Acute embolism and thrombosis of unspecified deep veins of left lower extremity (principal)
CPT/HCPCS: 93971

== ENCOUNTER 2023-10-22 09:37 | Outpatient (REF) | payer MEDICARE, MEDICAID, SELFPAY | END 2023-10-22 09:38 | disposition home or self-care (01) | LOC: HO.CT 09:37 | PROVIDERS: PCP Internal Medicine; Visit Provider Physician Assistant Medical | DX: Z12.2 Encounter for screening for malignant neoplasm of respiratory organs (principal); F17.210 Nicotine dependence, cigarettes, uncomplicated | CPT/HCPCS: 71271 ==

== ENCOUNTER 2024-02-08 09:32 | Outpatient (REF) | payer MEDICARE, MEDICAID, SELFPAY ==
[2024-02-08 11:46] LABS: Alanine Aminotransferase 7 U/L (0-31); Albumin Level 4.1 g/dL (3.5-5.0); Alkaline Phosphatase 89 U/L (39-117); Anion Gap 11 (12-20); Aspartate Amino Transferase 14 U/L (5-31); Bilirubin Direct 0.2 mg/dL (0.0-0.5); Bilirubin Total 0.5 mg/dL (0.0-1.0); Blood Urea Nitrogen 16 mg/dL (9-16); Calcium 9.5 mg/dL (8.4-10.2); Carbon Dioxide 26 mmol/L (22-29); Chloride 108 mmol/L (96-108); Cholesterol 149 mg/dL (<200); Estimated Glomerular Filt Rate > 60; Glucose Random 83 mg/dL (60-115); HDL Cholesterol 58 mg/dL (>40); LDL Cholesterol Calculated 72 mg/dL (<100); Sodium 141 mmol/L (135-145); Total Protein 7.4 g/dL (6.5-8.0); Triglycerides 96 mg/dL (<150)
[2024-02-08 12:47] LABS: Reflex LDLD? No
== END 2024-02-08 09:33 | disposition home or self-care (01) ==
LOC: HO.LAB 09:32
PROVIDERS: PCP Internal Medicine; Visit Provider Internal Medicine
DX: I10 Essential (primary) hypertension (principal)
CPT/HCPCS: 36415; 80048; 80061; 80076

== ENCOUNTER 2024-03-06 19:31 | Inpatient (IN) | payer MEDICARE, MEDICAID, SELFPAY ==
--- NOTE | ~2024-03-06 | CT_ITS ---
EXAMINATION: CT ANGIOGRAM HEAD CT ANGIOGRAM NECK CLINICAL INFORMATION: Reason for Exam Acute stroke COMPARISON: CT head without contrast 03/06/2024, MRI of the brain without contrast 03/07/2024 TECHNIQUE: Initial noncontrast sports doctor imaging of the head and neck was performed. Noncontrast head CT was also performed. Test bolus sequences followed by intravenous administration 80 mL of Omnipaque 350. Helical imaging was performed in the axial plane from the aortic arch to the skull vertex. Delayed postcontrast imaging of the head was also performed. The data was processed at the cardiac technologist workstation for generation of MIP sequences. Angled MIPs and volume rendered reformatted images were also generated at an offline 3D workstation. Stenoses are assessed in accordance with NASCET criteria unless otherwise indicated. DLP: 2245 mGy-cm This CT examination was performed using dose optimization techniques as appropriate, variously including the following: *Automated exposure control. *Adjustment of mA and/or kV according to patient size (this includes techniques or standardized protocols for targeted exams where dose is matched to indication/reason for exam; i.e. extremities or head). *Use of iterative reconstruction technique. FINDINGS: CT Head: Redemonstration of an evolving acute left WORKDAY CONSULTANT territory infarct. No evidence of hemorrhagic transformation. No new parenchymal hypodensity. No evidence of hydrocephalus. Locoregional mass effect associated with the acute infarct results in partial effacement of the posterior temporal and occipital horns of the left lateral ventricle. Chronic left CHRYSTAL territory infarct with left left frontoparietal encephalomalacia at the vertex and chronic basal ganglia lacunar infarcts. Mild chronic microscopic white matter hypodensity. Mild generalized cerebral volume loss There is no evidence of acute intracranial hemorrhage. No abnormal mass effect or midline shift. No extra-axial fluid collections. No pathologic intra-axial enhancement or regional oligemia. No acute soft tissue or osseous abnormalities. Layering secretions in the right maxillary antrum. Hyperostosis of the right maxillary sinus wall compatible with sequela of chronic sinusitis. CT Neck: There are several subcentimeter thyroid nodules which do not require further imaging follow-up. The remaining cervical soft tissues are within normal limits. Multilevel cervical spondylosis. CT Upper Chest: Mild paraseptal emphysema. No pulmonary consolidation. The visualized upper mediastinum is within normal limits. Neck CTA: Aortic Arch: Normal contour and caliber. Two vessel branching pattern of the arch with left common carotid artery arising from the brachiocephalic trunk. Great Vessel Origins: No significant stenosis of the branch origins. Right Common Carotid Artery: No focal stenosis or occlusion. Cervical Right Internal Carotid Artery: Mild calcific atherosclerotic disease of the carotid bulb and proximal internal carotid artery without flow-limiting stenosis. Partial retropharyngeal course. Left Common Carotid Artery: No focal stenosis or occlusion. Cervical Left Internal Carotid Artery: Mild calcific atherosclerotic disease of the carotid bulb and proximal internal carotid artery without flow-limiting stenosis. Cervical Right Vertebral Artery: No focal stenosis or occlusion. Cervical Left Vertebral Artery: Dominant. No focal stenosis or occlusion. Brain CTA: Intracranial Internal Carotid Arteries: Calcific atherosclerotic disease of the intracranial internal carotid arteries without occlusion or flow-limiting stenosis. Right Anterior Cerebral Artery: Normal A1 segment. Normal opacification of the distal CHRYSTAL segments. Left Anterior Cerebral Artery: Normal A1 and A2 segment. The distal left CHRYSTAL complex is not well visualized and may be occluded. Anterior Communicating Artery: Normal. Right Middle Cerebral Artery: Normal M1 segment of the MCA without focal stenosis or occlusion. Normal arborization of the distal segments. Left Middle Cerebral Artery: Normal M1 segment of the MCA without focal stenosis or occlusion. Normal arborization of the distal segments. Right Vertebral Artery: Normal V4 segment. Left Vertebral Artery: Normal V4 segment. Basilar Artery: Normal without focal stenosis or occlusion. Normal appearance of the proximal superior cerebellar arteries. Right Posterior Cerebral Artery: Normal P1 segment. Normal opacification of the distal WORKDAY CONSULTANT segments. Left Posterior Cerebral Artery: Normal P1 segment. There is occlusion of the P2 segment within the crural cistern and no precervical contrast filling of the distal right WORKDAY CONSULTANT complex. Normal opacification of the superior sagittal, straight, transverse, and sigmoid sinuses. CT/CT angio head neck IMPRESSION: 1. Redemonstration of an evolving acute left WORKDAY CONSULTANT territory infarct. No evidence of hemorrhagic transformation. 2. Occlusion of the P2 segment of the left WORKDAY CONSULTANT. 3. The distal left CHRYSTAL complex is not well visualized and is likely occluded, likely accounting for chronic encephalomalacia in the left CHRYSTAL territory
--- NOTE | ~2024-03-06 | MR_ITS ---
EXAMINATION: MR BRAIN WITHOUT CONTRAST CLINICAL INFORMATION: Right-sided weakness. COMPARISON: Head CT dated 03/06/2024. TECHNIQUE: Multiplanar, multisequence imaging of the brain was performed without contrast. FINDINGS: There is an acute infarct in the left posterior cerebral artery vascular territory with restricted diffusion in the left occipital lobe, medial left temporal lobe, and a portion of the ventrolateral left thalamus. Trace low signal is visible in the left occipital lobe superficially on the gradient acquisition, presumably due to minimal petechial hemorrhage. Additional T1 hyperintensity in the left occipital gyri may reflect developing laminar necrosis. Otherwise, there is no gross hemorrhagic transformation of the infarct. Regional mass effect distorts the atrium of the left lateral ventricle. No midline shift of structures evident. A chronic infarct is again visible in the left frontoparietal lobes at the level of the centrum semiovale. There are chronic infarcts in the basal ganglia bilaterally with areas of minimal hemosiderin staining and in the right frontal white matter near the roof of the right lateral ventricle. Mild chronic small vessel ischemic changes noted in the cerebral white matter. No extra-axial fluid collections are seen. A punctate focus of low signal on gradient imaging in the anterior right frontal white matter may reflect a chronic microhemorrhage. Generalized brain parenchymal volume loss again evident. No imaging findings of hydrocephalus. There is a small chronic lacunar infarct in the left cerebellar hemisphere. Mild chronic white matter microangiopathy noted in the shilpa as well. The craniovertebral junction, marrow signal, and midline structures are normal. The left MEAT DEPARTMENT MANAGER flow void is not well visualized. The dural venous sinus flow voids are maintained. There is trace fluid in the mastoid air cells. Small fluid level and mild mucosal thickening evident in the dependent right maxillary antrum. MR/MR head/brain wo con IMPRESSION: Acute left MEAT DEPARTMENT MANAGER territory infarction involving the left occipital lobe, medial left temporal lobe, and left thalamus with laminar necrosis and mild gyral petechial hemorrhage. Otherwise, no hemorrhagic conversion of infarct evident. Multiple chronic infarcts and chronic white matter microangiopathy as described with generalized brain parenchymal volume loss.
--- NOTE | ~2024-03-06 | CT_ITS ---
EXAMINATION: CT HEAD WITHOUT CONTRAST CLINICAL INFORMATION: Acute mental status change COMPARISON: None available. TECHNIQUE: Contiguous axial imaging was performed from the skull base to vertex without intravenous administration of contrast. This CT examination was performed using dose optimization techniques as appropriate, variously including the following: *Automated exposure control *Adjustment of mA and/or kV according to patient size (this includes techniques or standardized protocols for targeted exams where dose is matched to indication/reason for exam; i.e. extremities or head) *Use of iterative reconstruction technique DLP: 584 mGy-cm FINDINGS: No hemorrhage. There is a geographic area of decreased attenuation within the left occipital lobe relatively well-defined involving the alanis-white matter consistent with an infarct involving the FACE MAN territory. This is likely late acute to subacute in duration. No significant mass effect. Old left frontal lobe infarct noted as well as numerous old lacunar infarcts within the basal ganglia bilaterally. Generalized cortical and central atrophy. No calvarial lesion. CT/CT head/brain wo IV con IMPRESSION: 1. Left occipital lobe infarct as above which is likely late acute to subacute in duration. No hemorrhage. 2. Old infarcts as above. 3. No mass effect. No midline shift. No hemorrhage.
[2024-03-06 19:32] VITALS: BP 146/47; PULSE 81; RESP 20; TEMP 36.4; O2SAT 98; BMI 35.4
--- NOTE | 2024-03-06 19:34 | ED_ITS ---
HPI - Weakness General Chief complaint: Altered Mental Status Stated complaint: Right side weakness Time Seen by Provider: 03/06/24 22:07 Source: patient and family ( daughters) Mode of arrival: ambulatory Limitations: no limitations History of Present Illness HPI Narrative: a 73-year-old female brought in by her 2 daughters for concern of weakness of her right side, patient also lost vision in her right eye. Patient's symptoms started since yesterday at 15:00, patient was evaluated by Dr. Galan at his office today as per patient's family he will scheduled for outpatient MRI for further evaluation of dementia and her symptoms. 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 Related Data Home Medications ?Medication ?Instructions ?Recorded ?Confirmed clonazepam 0.5 mg tablet 0.5 mg PO BID PRN Sleep 08/19/20 02/21/24 clonidine HCl 0.2 mg tablet 0.2 mg PO BEDTIME 08/19/20 02/21/24 escitalopram oxalate 20 mg tablet 20 mg PO DAILY 08/19/20 02/21/24 (Lexapro) fluticasone 100 mcg-salmeterol 50 100 inh inhalation DAILY 08/19/20 02/21/24 mcg/dose blistr powdr for inhalation (Advair Diskus) metoprolol succinate 25 mg 25 mg PO DAILY 08/19/20 02/21/24 tablet,extended release 24 hr acetaminophen 650 mg 650 mg PO Q8H PRN Pain 11/23/20 02/21/24 tablet,extended release albuterol sulfate 90 mcg/actuation 90 mcg inhalation DAILY 11/23/20 02/21/24 aerosol inhaler nitroglycerin 0.4 mg sublingual 0.4 mg sublingual DAILY 11/23/20 02/21/24 tablet furosemide 20 mg tablet 20 mg PO DAILY 12/03/20 02/21/24 rosuvastatin 20 mg tablet 20 mg PO BEDTIME 12/03/20 02/21/24 Previous Rx's ?Medication ?Instructions ?Recorded apixaban 5 mg tablet (Eliquis) 5 mg PO BID #60 tabs 03/27/23 raloxifene 60 mg tablet 60 mg PO DAILY #90 tabs 01/21/24 Allergies Allergy/AdvReac Type Severity Reaction Status Date / Time hydrocodone [Vicodin] Allergy Unknown swelling Verified 03/06/24 19:36 ALL OVER Review of Systems 2 Review of Systems: all other systems are reviewed and are negative Constitutional: Reports as per HPI and Reports no additional constitutional complaints Eyes: Reports as per HPI and Reports no additional eye complaints Reports system reviewed and no additional complaints, except as documented Cardiovascular: Reports as per HPI and Reports no additional cardiovascular complaints Respiratory: Reports as per HPI and Reports no additional respiratory complaints Gastrointestinal: Reports as per HPI and Reports no additional gastrointestinal complaints Genitourinary: Reports no additional female genitourinary complaints Musculoskeletal: Reports no additional musculoskeletal complaints Skin/Breast: Reports system reviewed and no additional complaints, except as docu Psychiatric: Reports no additional psychiatric complaints Endocrine: Reports no additional endocrine complaints Hematologic/Lymphatic: Reports no additional hematologic/lymphatic complaints Allergic/Immunologic: Reports no additional allergic/immunologic complaints Reports system reviewed and no additional complaints, except as documented and Reports Abnormal speech present [facility] Past Medical History Medical History (Updated 03/06/24 @ 23:33 by Mando Arce MD) Personal history of nicotine dependence History of non-ST elevation myocardial infarction (NSTEMI) (~2011) CAD (coronary artery disease) Hyperlipidemia Hypertension Osteopenia (~2011) History of CVA (cerebrovascular accident) (~2005) Tubular adenoma of colon (~2003) Pulmonary emboli (~12/2019) Ductal carcinoma in situ (DCIS) of right breast (~2010) COPD (chronic obstructive pulmonary disease) Arthritis Surgical History History of lithotripsy (~2012) History of colonoscopy History of right mastectomy (~2011) History of coronary angioplasty with insertion of stent (~2011) History of lumpectomy of right breast (~2010) History of reversal of tubal ligation Family History Family History Mother Hx of skin cancer, basal cell Social History Social History Household Members: None Housing: Apartment Are you a primary rn homecare to a significant other at home: No Do you presently have 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) Patient Tobacco Use Status: Current everyday Tobacco user Tobacco use type: Cigarette Cigarettes Per Day: 5 Years Smoked: (current smoker, onset 21yo, 1ppd x 51yrs, now 3-5cig/day - 40+PYH) Advance Directives: No Advance Directives Information Provided: No Do you have a plan to hurt others: No Plan Nutrition Risks: No Nutritional Risk service: No Current occupational status: disabled Physical Exam 2 Vital Signs: Vital Signs: Last Vital Signs Temp 97.6 F 03/06/24 19:32 Pulse 74 03/06/24 23:23 Resp 17 03/06/24 23:23 BP 141/52 H 03/06/24 23:23 Pulse Ox 100 03/06/24 23:23 O2 Del Method Room Air 03/06/24 23:23 BMI result Body Mass Index 35.4 Vital signs have been reviewed and appear to be correct. Blood pressure elevated. Heart rate normal. Respiratory rate normal. Temperature normal. Oxygen saturation normal. Appearance: Alert. Oriented X3. No acute distress. Head: Normal external exam. Normocephalic. Atraumatic. No Patel signs noted. No raccoon eyes noted Eyes: PERRLA. EOMI. Conjunctiva and sclera normal. Eyelids normal. ENT: TM's Normal. Pharynx normal. Uvula midline. Moist mucous membranes. No trismus noted. No drooling noted. No muffled voice noted. Neck: Normal inspection. Neck supple. FROM. No adenopathy. Thyroid Normal. No meningeal signs. No neck mass noted. CVS: Normal heart rate and rhythm. Heart sound normal. No murmurs noted. Pulses normal throughout. Respiratory: No respiratory distress. Painless inspiration. Breath sounds normal. No wheezes/rales/rhonchi noted. Chest nontender. No accessory muscle usage noted or decreased air movement noted. Abdomen: Soft and nontender. Bowel sounds normal in all 4 quadrants. No distention noted. No organomegaly noted. No visible injury noted. Back: No CVA tenderness. Full range of motion noted. Skin: Skin warm and dry. Normal skin color. Normal skin turgor. No rashes/lesions/lacerations noted. Extremities: No lower extremity edema. Extremities exhibit normal range of motion. Extremities nontender. Neuro: Oriented X 3. Cranial nerve exam: II-XII are grossly intact No motor deficit. No sensory deficit. Reflexes normal. NIH Stroke Scale Time: 22:31 Level of Consciousness: Alert Level of Consciousness Questions: Answers both questions correctly Level of Consciousness Commands: Performs both tasks correctly Best Gaze: Normal Visual: Partial hemianopia ( right eye) Facial Palsy: Normal Motor Arm (Right): Drift Motor Arm (Left): No drift Motor Leg (Right): Drift Motor Leg (Left): No drift Limb Ataxia: Absent Sensory: Mild to moderate sensory loss Best Language: No aphasia Dysarthia: Normal Extinction and Inattention: No abnormality Score: 4 Course Course Course Narrative: This is a rapid medical exam completed by [employer] [facility]: Additional HPI, ROS, PE not included below will be deferred to primary provider. Altered mental status over the last 4 months worsening yesterday into today with increased confusion and agitation today. Daughter notes increased right sided weakness. On eliquis Reevaluation(s) Reevaluation #1: a 73-year-old female history of CVA with residual right hemiparesis 2005, patient is able to function and ambulate at home with animal assistant, since yesterday patient been complaining of increased weakness on the right side with increased numbness on right side, noted by the family that the patient's vision was not normal on the physical exam patient lost vision on the right eye. Patient's symptoms started since 15:00 yesterday which is greater than 24 hours ago therefore patient is not candidate for TNK or mechanical thrombectomy at this point. Will administer aspirin admit to medical service for further neuro evaluation. Patient also is showing UTI in the urinalysis will start the patient on cefuroxime orally. Time: 22:51 Medications Administered Generic Name Dose Route Start Last Admin Trade Name Freq PRN Reason Stop Dose Admin Apixaban 5 mg 03/06/24 22:55 03/06/24 23:25 Apixaban 5 Mg Tablet PO 5 mg BID JOSE Administration Discontinued Medications Generic Name Dose Route Start Last Admin Trade Name Freq PRN Reason Stop Dose Admin Aspirin 81 mg 03/06/24 22:18 03/06/24 22:26 Aspirin Enteric Coated 81 Mg Tablet.Dr PO 03/06/24 22:19 81 mg ONCE ONE Administration Clonidine HCl 0.1 mg 03/06/24 22:55 03/06/24 23:25 Clonidine Hcl 0.1 Mg Tablet PO 03/06/24 22:56 0.1 mg ONCE STA Administration Protocol Medical Decision Making Differential Diagnosis Differential Diagnoses: The differential diagnosis associated with the presentation includes ( Acute on chronic CVA, electrolyte derangement, severe anemia ACS, dysrhythmia, UTI.) Admission/Observation Consideration of admission/observation: Escalation of care including admission/observation considered Consult Healthcare Provider Management of the patient was discussed with: Hospitalist ( Dr. Wells) Lab Data MDM Lab Attestation statement: I reviewed the patient's lab results. 03/06/24 19:49 03/06/24 19:49 Labs: Lab Results 03/06/24 Range/Units 19:49 WBC 8.6 (4.8-10.8) X10*3/uL RBC 4.58 (4.20-5.50) X10*6/uL Hgb 13.4 (12.0-16.0) g/dl Hct 40.9 (37.0-47.0) % MCV 89.3 (80.0-98.0) fL MCH 29.3 (27.0-33.0) pg MCHC 32.8 (31.0-35.0) g/dl RDW 13.8 (11.0-16.0) % Plt Count 193 (160-400) X10*3/uL MPV 9.2 L (9.4-12.3) fL Immature Gran % (Auto) 0.1 (0.0-0.4) % Neut % (Auto) 57.9 (45-73) % Lymph % (Auto) 31.2 (20-40) % [place] % (Auto) 9.9 (2-11) % Eos % (Auto) 0.8 (0-4) % Baso % (Auto) 0.1 (0-2) % Lymph # (Auto) 2.7 (1.2-4.9) X10*3/uL [place] # (Auto) 0.9 (0.1-1.2) X10*3/uL Eos # (Auto) 0.1 (0.0-0.4) X10*3/uL Baso # (Auto) 0.0 (0.0-0.2) X10*3/uL Abs Immat Gran (auto) 0.01 (0.00-0.03) X10*3/uL Absolute Neuts (auto) 5.0 (2.0-8.3) x10*3/uL Absolute Nucleated RBC 0.000 (0.0-0.012) X10*3/uL Nucleated RBC % (auto) 0.0 (0.0-0.2) /100WBC Sodium 141 (135-145) mmol/L Potassium 3.8 D (3.3-5.1) mmol/L Chloride 110 H (96-108) mmol/L Carbon Dioxide 21 L (22-29) mmol/L Anion Gap 14 (12-20) BUN 11 (9-16) mg/dL Creatinine 0.77 (0.5-1.4) mg/dL Estim Creat Clear Calc 67.5 Estimated GFR > 60 Random Glucose 93 (60-115) mg/dL Calcium 9.5 (8.4-10.2) mg/dL Magnesium 2.1 (1.6-2.6) mg/dL Total Bilirubin 0.3 (0.0-1.0) mg/dL AST 15 (5-31) U/L ALT 9 (0-31) U/L Alkaline Phosphatase 87 (39-117) U/L Troponin I High Sens 4.2 (<3.5-17.0) ng/L Total Protein 7.2 (6.5-8.0) g/dL Albumin 4.0 (3.5-5.0) g/dL Influenza Type A (PCR) NEGATIVE (Negative) Influenza Type B (PCR) NEGATIVE (Negative) RSV RNA Qual (PCR) NEGATIVE (Negative) SARS-CoV-2 RNA (RT-PCR) NEGATIVE (Negative) Independent Interpretation I performed an independent interpretation of an: CT Scan ( head:1. Left occipital lobe infarct as above which is likely late acute to subacute in duration. No hemorrhage. 2. Old infarcts as above. 3. No mass effect. No midline shift. No hemorrhage. ) Radiology Impression Discussion of test interpretation with radiology: I have reviewed the radiologist's reading. Chronic Conditions Patient?s care impacted by: Other ( Old CVA with right hemiparesis) Discharge Plan Discharge Clinical Impression: CVA, old, disturbances of vision, Acute CVA (cerebrovascular accident), Acute UTI Patient Disposition: Admitted As Inpatient
--- NOTE | 2024-03-06 19:36 | ECG_ITS ---
Test Reason : ALTERED MENTAL Blood Pressure : / mmHG Vent. Rate : 070 BPM Atrial Rate : 070 BPM P-R Int : 136 ms QRS Dur : 082 ms QT Int : 392 ms P-R-T Axes : 057 044 035 degrees QTc Int : 423 ms Normal sinus rhythm Normal ECG When compared with ECG of 10-DEC-2019 08:22, T wave inversion no longer evident in Anterior leads Referred By: Cony Luna Electronically Signed By:BILL VARELA
[2024-03-06 19:55] LABS: MANUAL DIFF FLAG NO
[2024-03-06 19:57] LABS: Basophils Percent Auto 0.1 % (0-2); Eosinophils Absolute Auto 0.1 X10*3/uL (0.0-0.4); Eosinophils Percent Auto 0.8 % (0-4); Hematocrit 40.9 % (37.0-47.0); Hemoglobin 13.4 g/dl (12.0-16.0); Imm Gran Abs Auto 0.01 X10*3/uL (0.00-0.03); Imm Gran Pct Auto 0.1 % (0.0-0.4); Lymphocytes Absolute Auto 2.7 X10*3/uL (1.2-4.9); Lymphocytes Percent Auto 31.2 % (20-40); Mean Corpuscular HGB Conc 32.8 g/dl (31.0-35.0); Mean Corpuscular Hemoglobin 29.3 pg (27.0-33.0); Mean Corpuscular Volume 89.3 fL (80.0-98.0); Mean Platelet Volume 9.2 fL (9.4-12.3); Monocytes Absolute Auto 0.9 X10*3/uL (0.1-1.2); Monocytes Percent Auto 9.9 % (2-11); Neutrophils Percent Auto 57.9 % (45-73); Platelet Count 193 X10*3/uL (160-400); Red Blood Count 4.58 X10*6/uL (4.20-5.50); Red Cell Distribution Width 13.8 % (11.0-16.0); White Blood Count 8.6 X10*3/uL (4.8-10.8)
[2024-03-06 20:10] LABS: Alanine Aminotransferase 9 U/L (0-31); Alkaline Phosphatase 87 U/L (39-117); Anion Gap 14 (12-20); Aspartate Amino Transferase 15 U/L (5-31); Bilirubin Total 0.3 mg/dL (0.0-1.0); Blood Urea Nitrogen 11 mg/dL (9-16); Calcium 9.5 mg/dL (8.4-10.2); Carbon Dioxide 21 mmol/L (22-29); Chloride 110 mmol/L (96-108); Creatinine Clr Calc Pharmacy 67.5; Estimated Glomerular Filt Rate > 60; Glucose Random 93 mg/dL (60-115); Magnesium 2.1 mg/dL (1.6-2.6); Potassium 3.8 mmol/L (3.3-5.1); Sodium 141 mmol/L (135-145); Total Protein 7.2 g/dL (6.5-8.0)
[2024-03-06 20:17] LABS: Troponin-I High Sensitivity 4.2 ng/L (<3.5-17.0)
[2024-03-06 20:32] LABS: Influenza A PCR NEGATIVE (Negative); Influenza B PCR NEGATIVE (Negative); Resp Syncy Virus RNA Qual PCR NEGATIVE (Negative); SARS COV2 PCR INHOUSE NEGATIVE (Negative)
[2024-03-06 21:52] VITALS: BP 130/67; PULSE 71; RESP 17; O2SAT 98
[2024-03-06] MEDS: Aspirin Enteric Coated 81 MG TABLET.DR PO (22:26)
--- NOTE | 2024-03-06 23:08 | P.HPHOSP_ITS ---
History of Present Illness Date of Service: 03/06/24 Attending physician on admission: Herminio Batista Chief Complaint: Right-sided weakness Paula Willoughby is a 73 years old woman with past medical history significant for old CVA with right hemiparesis, VTE on Eliquis, CAD and hypertension presents to the ED after her daughter found her to be confused and having worsening weakness to the right side. Patient also reports right eye vision difficulty and mild slurred speech. According to daughter the symptoms started yesterday at 3 PM. Patient denied any headache, nausea, dizziness, chest pain, shortness on breath or palpitations. She did not report any acute gastrointestinal or genitourinary symptoms. There is no fevers chills reported. Patient is on ongoing tobacco smoker however, she is currently smoking about 1 cigarette a day. Denied alcohol abuse or illicit drug use. Patient takes a baby aspirin daily. In the ED, she was found to have stable vital signs. Blood workup including CBC and CMP unremarkable. Troponin is negative. Head CT scan without contrast showed left occipital lobe infarct (acute versus subacute). ECG showed normal sinus rhythm without acute ischemic changes. ED tx: Aspirin 81 mg PO Review of Systems 2 Review of Systems: Limited. PENDING SALE TO [facility] Medical History (Updated 03/06/24 @ 23:27 by Herminio Batista MD) Personal history of nicotine dependence History of non-ST elevation myocardial infarction (NSTEMI) (~2011) CAD (coronary artery disease) Hyperlipidemia Hypertension Osteopenia (~2011) History of CVA (cerebrovascular accident) (~2005) Tubular adenoma of colon (~2003) Pulmonary emboli (~12/2019) Ductal carcinoma in situ (DCIS) of right breast (~2010) COPD (chronic obstructive pulmonary disease) Arthritis Family History Mother Hx of skin cancer, basal cell Surgical History History of lithotripsy (~2012) History of colonoscopy History of right mastectomy (~2011) History of coronary angioplasty with insertion of stent (~2011) History of lumpectomy of right breast (~2010) History of reversal of tubal ligation Social History Household Members: None Housing: Apartment Are you a primary rn urgent care to a significant other at home: No Do you 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) Patient Tobacco Use Status: Current everyday Tobacco user Tobacco use type: Cigarette Cigarettes Per Day: 5 Years Smoked: (current smoker, onset 21yo, 1ppd x 51yrs, now 3-5cig/day - 40+PYH) Do you have a plan to hurt others: No Plan service: No Current occupational status: disabled Meds Allergies Allergy/AdvReac Type Severity Reaction Status Date / Time hydrocodone [Vicodin] Allergy Unknown swelling Verified 03/06/24 19:36 ALL OVER Active Medications: Current Medications Acetaminophen (Acetaminophen 325 Mg Tablet) 975 mg PO Q6H PRN PRN Reason: mild pain, headache or fever Apixaban (Apixaban 5 Mg Tablet) 5 mg PO BID JOSE Aspirin (Aspirin Enteric Coated 81 Mg Tablet.) 81 mg PO DAILY JOSE Clonidine HCl (Clonidine Hcl 0.1 Mg Tablet) 0.1 mg PO ONCE STA; Protocol Stop: 03/06/24 22:56 Metoprolol Succinate (Metoprolol Succinate Er 25 Mg Tab.Er.24h) 25 mg PO DAILY JOSE; Protocol Sodium Chloride (0.9 % Sodium Chloride Flush 3 Ml Syringe) 3 ml IVFLUSH QSHIFT [facility] Home Medications ?Medication ?Instructions ?Recorded ?Confirmed ?Last Taken ?Type clonazepam 0.5 mg tablet 0.5 mg PO BID PRN Sleep 08/19/20 02/21/24 Unknown History clonidine HCl 0.2 mg tablet 0.2 mg PO BEDTIME 08/19/20 02/21/24 Unknown History escitalopram oxalate 20 mg tablet 20 mg PO DAILY 08/19/20 02/21/24 Unknown History (Lexapro) fluticasone 100 mcg-salmeterol 50 100 inh inhalation DAILY 08/19/20 02/21/24 Unknown History mcg/dose blistr powdr for inhalation (Advair Diskus) metoprolol succinate 25 mg 25 mg PO DAILY 08/19/20 02/21/24 Unknown History tablet,extended release 24 hr acetaminophen 650 mg 650 mg PO Q8H PRN Pain 11/23/20 02/21/24 Unknown History tablet,extended release albuterol sulfate 90 mcg/actuation 90 mcg inhalation DAILY 11/23/20 02/21/24 Unknown History aerosol inhaler nitroglycerin 0.4 mg sublingual 0.4 mg sublingual DAILY 11/23/20 02/21/24 Unknown History tablet furosemide 20 mg tablet 20 mg PO DAILY 12/03/20 02/21/24 Unknown History rosuvastatin 20 mg tablet 20 mg PO BEDTIME 12/03/20 02/21/24 Unknown History Physical Exam 2 Vital Signs and Narrative: Vital Signs: Last Vital Signs Temp 97.6 F 03/06/24 19:32 Pulse 71 03/06/24 21:52 Resp 17 03/06/24 21:52 BP 130/67 03/06/24 21:52 Pulse Ox 98 03/06/24 21:52 O2 Del Method Room Air 03/06/24 21:52 BMI result Body Mass Index 35.4 Constitutional - Awake and Alert, No apparent distress. Cooperative. HEENT - PERRLA, EOMI Heart - S1S2, RRR. Lungs - Normal lung expansion, Normal respiratory effort, No respiratory distress, CTA bilaterally Abdomen - NT / ND; +BS; No rebound or guarding Extremities - no calf tenderness bilaterally, no swelling Musculoskeletal - Normal inspection, normal ROM Skin - Warm/Dry Neurological - Alert & oriented x1. Strenght: 3/5 RUE and RLE, 5/5 LUE and LLE Psychological - Appropriate affect Results Labs 03/06/24 19:49 03/06/24 19:49 Labs: Laboratory Results - last 24 hr 03/06/24 19:49 MCV 89.3 MCH 29.3 MCHC 32.8 RDW 13.8 Plt Count 193 MPV 9.2 L Immature Gran % (Auto) 0.1 Neut % (Auto) 57.9 Lymph % (Auto) 31.2 [place] % (Auto) 9.9 Eos % (Auto) 0.8 Baso % (Auto) 0.1 Lymph # (Auto) 2.7 [place] # (Auto) 0.9 Eos # (Auto) 0.1 Baso # (Auto) 0.0 Abs Immat Gran (auto) 0.01 Absolute Neuts (auto) 5.0 Absolute Nucleated RBC 0.000 Nucleated RBC % (auto) 0.0 Anion Gap 14 Estim Creat Clear Calc 67.5 Estimated GFR > 60 Random Glucose 93 Calcium 9.5 Magnesium 2.1 Total Bilirubin 0.3 AST 15 ALT 9 Alkaline Phosphatase 87 Troponin I High Sens 4.2 Total Protein 7.2 Albumin 4.0 Influenza Type A (PCR) NEGATIVE Influenza Type B (PCR) NEGATIVE RSV RNA Qual (PCR) NEGATIVE SARS-CoV-2 RNA (RT-PCR) NEGATIVE Imaging Radiologist's Impressions: Impressions Head CT 03/06/24 19:57 IMPRESSION: 1. Left occipital lobe infarct as above which is likely late acute to subacute in duration. No hemorrhage. 2. Old infarcts as above. 3. No mass effect. No midline shift. No hemorrhage. Assessment and Plan (1) Acute CVA (cerebrovascular accident): Status: Acute (2) VTE (venous thromboembolism): Status: Acute (3) History of CVA (cerebrovascular accident): Status: Acute (4) CAD (coronary artery disease): Qualifiers: Coronary Disease-Associated Artery/Lesion type: unspecified vessel or lesion type [place] vs. transplanted heart: unspecified whether [place] or transplanted heart Associated angina: unspecified whether angina present Q ualified Code(s): I25.10 - Atherosclerotic heart disease of [place] coronary artery without angina pectoris Status: Acute (5) Hypertension: Qualifiers: Hypertension type: primary hypertension Qualified Code(s): I10 - Essential (primary) hypertension Status: Acute (6) Hyperlipidemia: Qualifiers: Hyperlipidemia type: unspecified Qualified Code(s): E78.5 - Hyperlipidemia, unspecified Status: Acute Plan Paula Willoughby is a 73 years old woman admitted with: * Worsening right hemiparesis and right eye visual disturbance secondary to left occipital lobe infarct (acute versus subacute). Admit to hospitalist service. Telemetry. Neuro checks every 4 hours. Continue treatment with Eliquis, aspirin and statin. Brain MRI. Check lipid panel and hemoglobin A1c. Neurology consult. * Essential hypertension. Continue metoprolol. * Hyperlipidemia. Continue statin. * History of VTE. Continue Eliquis. * Anxiety. Clonidine at bedtime as needed. Avoid BDZ for now. * CAD. Continue aspirin and statin. * History of breast cancer. Continue raloxifene. * Tobacco smoking. Tobacco cessation education. DVT prophylaxis: Eliquis Code status: Full Patient will need hospitalization for at least 2 midnights for acute versus acute left occipital lobe infarct management with close monitoring of neurological status. Patient will also need further evaluation with brain MRI and neurology service. Quality Stroke Does the patient have a stroke diagnosis?: Yes Reason for No Anti-thrombotic by Day Two: N/A - Med Ordered VTE Prior VTE?: Yes VTE Risk Level:: Medical - moderate - high VTE Device Contraindication: Treatment Not Indicated VTE Drug Contraindication: N/A - Med Ordered
[2024-03-06 23:16] LABS: Appearance Urine Cloudy; Color Urine Yellow; Glucose Urine UA Negative (Negative); Leukocyte Esterase Urine Moderate (2+) (Negative); Nitrite Urine Positive (Negative); PH 5.5 (5.0-9.0); UMIC TRIGGER UACC YES; Urine Blood Large (3+) (Negative); Urine Ketones Negative (Negative); Urine Protein 30 (1+) mg/dL (Neg-Trace)
[2024-03-06 23:19] LABS: Bacteria Urine 4+ (None Seen); Hyaline Casts Urine 0-2 /LPF (0-2); UACC Culture Trigger YES; WBC Urine >50 /HPF (0-5)
[2024-03-06 23:23] VITALS: BP 141/52; PULSE 74; RESP 17; O2SAT 100
[2024-03-06] MEDS: Apixaban 5 MG TABLET PO (23:25)
[2024-03-06] MEDS: cloNIDine HCL 0.1 MG TABLET PO (23:25)
--- NOTE | 2024-03-06 23:27 | PC.NURSE ---
Please call Debbie Winston listed on pts chart for any questions/concerns.
--- NOTE | 2024-03-06 23:33 | PC.NURSE ---
MRI checklist completed with pts daughter, Debbie.
[2024-03-06] MEDS: cefuroxime axetiL 500 MG TABLET PO (23:38)
[2024-03-06] MEDS: 0.9 % Sodium Chloride Flush 3 ML SYRINGE IVFLUSH (23:44)
[2024-03-07 01:18] VITALS: BP 140/71; PULSE 66; RESP 20; TEMP 36.6; O2SAT 95
[2024-03-07 03:21] VITALS: BP 155/63; PULSE 107; RESP 20; TEMP 36.9; O2SAT 96
--- NOTE | 2024-03-07 07:00 | CA_ITS ---
Transthoracic Echocardiogram Patient (Last, First, Middle): Paula Willoughby M Gender: Female Date of : 1950 Age: 73 Procedure Date: 03/07/2024 Procedure Type: Transthoracic Echocardiogram Location[place] [facility] [place] Height: 160.02 cm Weight: 90.72 kg BSA: 1.93 m2 Heart Rate: 68 bpm BP: 155 / 63 mmHg Rack Worker: SB Referring MD: Herminio Batista MD Symptoms: Stroke Study Quality: Adequate ECG Rhythm: Sinus Conclusions: - The left ventricular systolic function is normal. The calculated ejection fraction is 68% by biplane method. - There is mild aortic valve stenosis. Findings Left Ventricle Normal left ventricular cavity size. There is normal left ventricular wall thickness. The left ventricular systolic function is normal. The calculated ejection fraction is 68% by biplane method. There is no evidence of regional wall motion abnormalities. Evidence suggests grade I (mild) diastolic dysfunction. Right Ventricle Normal right ventricular cavity size and systolic function. Atria Both atria are normal in size. Aortic Valve There is mild calcification of the aortic valve. There is mild aortic valve stenosis. There is no aortic valve regurgitation. Mitral Valve There is mild mitral annular calcification. There is trace mitral valve regurgitation. There is no mitral valve stenosis. Pulmonic Valve The pulmonic valve is likely normal. Tricuspid Valve Normal tricuspid valve structure. There is mild tricuspid valve regurgitation. There is no evidence of pulmonary hypertension. Great Vessels The asc aorta is normal in size. Venous The inferior vena cava is normal in size and collapses greater than 50% with inspiration. Pericardium/Pleural There is no evidence of pericardial effusion. Prior Study Comparison Changes noted compared to prior study dated: 04/13/2020. Mild aortic stenosis noted. Measurements 2D Linear Measurements IVSd: 1.00 0.6-0.9/0.6-1.0 cm LVIDd: 4.14 3.9-5.3/4.2-5.9 cm LVIDd Index: 2.15 2.4-3.2/2.2-3.1 cm/m2 LVIDs: 3.06 2.0-3.6 cm LVPWd: 0.56 0.7-1.1 cm LA Diam: 3.80 2.7-3.8/3.0-4.0 cm LAIDs Index: 1.97 1.5-2.3 cm/m2 LV Mass: 118.70 67-162/88-224 g LV Mass Index: 61.50 43-95/49-115 g/m2 LVOT Diam: 2.00 3.0+(-)1.3 cm 2D Systolic Function EF 4C: 61.60 >55% EF 2C: 73.40 >55% EF BiP: 67.50 >55% Mitral Valve MV Pk E: 0.88 MV PK A: 1.07 MV Decel Time: 188.00 E/A: 0.80 E'Lateral: 5.77 E'Medial: 6.31 E/E' Med: 13.90 E/E' Lat: 15.20 PHT: 55.00 MVA PHT: 4.00 Decel Dukes: 4.68 Aortic Valve AoV Pk Farhad: 2.06 AoV Mn Farhad: 1.39 AoV VTI: 0.43 AoV Pk Grad: 17.00 Aov Mn Grad: 9.00 YASMINE Cont.VTI: 1.56 LVOT LVOT Pk Farhad: 0.89 LVOT Mn Farhad: 0.66 LVOT VTI: 0.21 LVOT Pk Grad: 3.00 LVOT Mn Grad: 2.00 LVOT Diam: 2.00 LVOT Area: 3.14 Diastolic Function MV Pk E: 0.88 MV Pk A: 1.07 E/A: 0.80 E'Medial: 6.31 E/E' Med: 13.90 E' Laterial: 5.77 E/E' Lat: 15.20 Right Ventricle TAPSE (mm): 22.20 Tricuspid Valve TR Pk Farhad: 2.84 TR Pk Grad: 32.00 RA Press: 3.00 RVSP: 35.00 Great Vessels Aorta Sinus of Valsalva: 3.00 2.0-3.5 cm Ao Asc: 3.00 2.1-3.4 cm Pulmonary Veins Pulm Vein S/D 1.70 Pulmonary Valve PV Pk Farhad: 0.64 Peak PV Grad: 2.00 Updated in Other Vendor System with Status of Final Seth Bartlett MD electronically signed on 03/07/2024 3:40:57 PM with status of Final
[2024-03-07 08:00] VITALS: BP 152/68; PULSE 64; RESP 16; TEMP 36.6; O2SAT 100
--- NOTE | 2024-03-07 08:28 | PHA.MEDREC ---
Pharmacy Consult ? Medication Reconciliation Pharmacy has completed the medication reconciliation. Steel Die Press Set Up Operator used. Patient confirms she takes medications at home, however, she has no one that helps her, she does not know what she takes and she doesnt know where she picks them up.
[2024-03-07] MEDS: Metoprolol Succinate ER 25 MG TAB.ER.24H PO ×2 (08:40→09:40)
[2024-03-07] MEDS: Apixaban 5 MG TABLET PO ×2 (08:40→20:44)
[2024-03-07] MEDS: Aspirin Enteric Coated 81 MG TABLET.DR PO (08:41)
[2024-03-07 09:06] LABS: MANUAL DIFF FLAG NO
[2024-03-07 09:18] LABS: Basophils Percent Auto 0.3 % (0-2); Eosinophils Absolute Auto 0.1 X10*3/uL (0.0-0.4); Eosinophils Percent Auto 0.8 % (0-4); Hemoglobin 13.2 g/dl (12.0-16.0); Imm Gran Abs Auto 0.02 X10*3/uL (0.00-0.03); Imm Gran Pct Auto 0.3 % (0.0-0.4); Lymphocytes Absolute Auto 2.1 X10*3/uL (1.2-4.9); Mean Corpuscular HGB Conc 32.2 g/dl (31.0-35.0); Mean Corpuscular Hemoglobin 29.3 pg (27.0-33.0); Mean Corpuscular Volume 90.9 fL (80.0-98.0); Mean Platelet Volume 9.8 fL (9.4-12.3); Monocytes Absolute Auto 0.7 X10*3/uL (0.1-1.2); Monocytes Percent Auto 9.3 % (2-11); Neutrophils Absolute Auto 4.5 x10*3/uL (2.0-8.3); Neutrophils Percent Auto 61.3 % (45-73); Platelet Count 188 X10*3/uL (160-400); Red Blood Count 4.51 X10*6/uL (4.20-5.50); Red Cell Distribution Width 13.8 % (11.0-16.0); White Blood Count 7.4 X10*3/uL (4.8-10.8)
[2024-03-07 09:23] LABS: Estimated Average Glucose 128 mg/dL; Hemoglobin A1c % 6.1 % (<6.0)
[2024-03-07 09:30] LABS: Anion Gap 14 (12-20); Blood Urea Nitrogen 8 mg/dL (9-16); Calcium 9.7 mg/dL (8.4-10.2); Carbon Dioxide 25 mmol/L (22-29); Chloride 107 mmol/L (96-108); Cholesterol 159 mg/dL (<200); Creatinine Clr Calc Pharmacy 70.2; Estimated Glomerular Filt Rate > 60; Glucose Random 90 mg/dL (60-115); HDL Cholesterol 63 mg/dL (>40); LDL Cholesterol Calculated 83 mg/dL (<100); Potassium 3.9 mmol/L (3.3-5.1); Sodium 142 mmol/L (135-145); Triglycerides 65 mg/dL (<150)
[2024-03-07 10:17] LABS: Reflex LDLD? No
[2024-03-07] MEDS: Escitalopram Oxalate 20 MG TABLET PO (12:12)
[2024-03-07] MEDS: Nitroglycerin 0.4 MG TAB.SUBL SUBLINGUAL (12:16)
--- NOTE | 2024-03-07 14:43 | P.PNIM_ITS ---
Subjective Subjective Date of Service: 03/07/24 Interval History: Patient was seen and evaluated this morning Feels better overall as right sided weakness improved tolerating diet no reported other events Review of Systems Review of Systems: Yes all other systems are reviewed and are negative Physical Exam 2 Vital Signs: Vital Signs: Last Vital Signs Temp 97.9 F 03/07/24 08:00 Pulse 64 03/07/24 08:00 Resp 16 03/07/24 08:00 BP 152/68 H 03/07/24 08:00 Pulse Ox 100 03/07/24 08:00 O2 Del Method Room Air 03/07/24 08:00 BMI result Body Mass Index 35.4 Const: Other: Constitutional : Awake, interactive, not in distress Neck : Normal inspection, Supple Cardiovascular : RRR, no JVP, no lower extremity edema Respiratory : good bilateral air entry, no crackles, wheezes or rhonchi Gastrointestinal: soft, lax, Normal bowel sounds, Non tender Skin : Warm, Dry Neurological : Alert & oriented x3, mild right sided hemiparesis, 3/5 RUE and RLE , CN 2-12 within normal Objective Data Active Medications Acetaminophen (Acetaminophen 325 Mg Tablet) 975 mg PO Q6H PRN PRN Reason: mild pain, headache or fever Albuterol Sulfate (Albuterol Sulfate 90 Mcg 8 Gm Inhaler) 1 puff INHALE Q4H PRN PRN Reason: Shortness of Breath/Wheezing Apixaban (Apixaban 5 Mg Tablet) 5 mg PO BID [facility] Last Admin: 03/07/24 08:40 Dose: 5 mg Documented By: YASMANY Aspirin (Aspirin Enteric Coated 81 Mg Tablet.) 81 mg PO DAILY [facility] Last Admin: 03/07/24 08:41 Dose: 81 mg Documented By: YASMANY Atorvastatin Calcium (Atorvastatin Calcium 40 Mg Tablet) 40 mg PO BEDTIME [facility] Clonazepam (Clonazepam 0.5 Mg Tablet) 0.5 mg PO BID PRN PRN Reason: Anxiety Clonidine HCl (Clonidine Hcl 0.2 Mg Tablet) 0.2 mg PO BEDTIME [facility]; Protocol Escitalopram Oxalate (Escitalopram Oxalate 20 Mg Tablet) 20 mg PO DAILY [facility] Last Admin: 03/07/24 12:12 Dose: 20 mg Documented By: YASMANY Ceftriaxone Sodium 1 gm/ (Sodium Chloride) 50 mls @ 100 mls/hr IV Q24H [facility] Metoprolol Succinate (Metoprolol Succinate Er 25 Mg Tab.Er.24h) 25 mg PO DAILY [facility]; Protocol Last Admin: 03/07/24 09:40 Dose: 25 mg Documented By: YASMANY Metoprolol Succinate (Metoprolol Succinate Er 25 Mg Tab.Er.24h) 25 mg PO DAILY [facility]; Protocol Last Admin: 03/07/24 12:24 Dose: Not Given Documented By: YASMANY Non-Admin Reason: Duplicate Order Nitroglycerin (Nitroglycerin 0.4 Mg Tab.Subl) 0.4 mg SUBLINGUAL DAILY [facility] Last Admin: 03/07/24 12:16 Dose: 0.4 tab Documented By: YASMANY Non-Formulary Medication (Raloxifene) 60 mg PO DAILY [facility] Sodium Chloride (0.9 % Sodium Chloride Flush 3 Ml Syringe) 3 ml IVFLUSH QSHIFT [facility] Last Admin: 03/07/24 08:42 Dose: Not Given Documented By: YASMANY Non-Admin Reason: No Access Labs 03/07/24 08:02 03/07/24 08:02 Labs: Laboratory Results - last 24 hr 03/06/24 03/06/24 03/07/24 19:49 23:10 08:02 MCV 89.3 90.9 MCH 29.3 29.3 MCHC 32.8 32.2 RDW 13.8 13.8 Plt Count 193 188 MPV 9.2 L 9.8 Immature Gran % (Auto) 0.1 0.3 Neut % (Auto) 57.9 61.3 Lymph % (Auto) 31.2 28.0 [place] % (Auto) 9.9 9.3 Eos % (Auto) 0.8 0.8 Baso % (Auto) 0.1 0.3 Lymph # (Auto) 2.7 2.1 [place] # (Auto) 0.9 0.7 Eos # (Auto) 0.1 0.1 Baso # (Auto) 0.0 0.0 Abs Immat Gran (auto) 0.01 0.02 Absolute Neuts (auto) 5.0 4.5 Absolute Nucleated RBC 0.000 0.000 Nucleated RBC % (auto) 0.0 0.0 Anion Gap 14 14 Estim Creat Clear Calc 67.5 70.2 Estimated GFR > 60 > 60 Random Glucose 93 90 Estimat Average Glucose 128 Hemoglobin A1c % 6.1 H Calcium 9.5 9.7 Magnesium 2.1 Total Bilirubin 0.3 AST 15 ALT 9 Alkaline Phosphatase 87 Troponin I High Sens 4.2 Total Protein 7.2 Albumin 4.0 Triglycerides 65 Cholesterol 159 LDL Cholesterol, Calc 83 HDL Cholesterol 63 Urine Color Yellow Urine Appearance Cloudy Urine pH 5.5 Ur Specific [place] 1.020 Urine Protein 30 (1+) H Urine Glucose (UA) Negative Urine Ketones Negative Urine Blood Large (3+) H Urine Nitrite Positive H Ur Leukocyte Esterase Moderate (2+) H Urine RBC 11-20 H Urine WBC >50 H Ur Squamous Epith Cells 11-20 Urine Bacteria 4+ Hyaline Casts 0-2 Influenza Type A (PCR) NEGATIVE Influenza Type B (PCR) NEGATIVE RSV RNA Qual (PCR) NEGATIVE SARS-CoV-2 RNA (RT-PCR) NEGATIVE Assessment and Plan (1) Acute UTI: Status: Acute (2) Acute CVA (cerebrovascular accident): Status: Acute Plan Paula Willoughby is a 73 years old woman admitted with: # Worsening right hemiparesis and right eye visual disturbance secondary to left occipital lobe infarct (acute versus subacute). Improved symptoms overnight Keep on Telemetry Continue treatment with Eliquis, DC aspirin start Atorvastatin Pending ECHO, CTA head and neck Brain MRI showing Acute left BALANCE SCREWHEAD POLISHER territory infarction involving the left occipital lobe, medial left temporal lobe, and left thalamus with laminar necrosis and mild gyral petechial hemorrhage. Neurology input appreciated PT\OT . # UTI PEnding cultures continue IV Ceftriaxone # Essential hypertension. Continue metoprolol. # Hyperlipidemia. Continue statin. # History of VTE. Continue Eliquis. # Anxiety. Clonidine at bedtime as needed. Avoid BDZ for now. # CAD. Continue aspirin and statin. # History of breast cancer. Continue raloxifene. # Tobacco smoking. Tobacco cessation education. DVT prophylaxis: Eliquis Code status: Full Patient will need hospitalization overnight for acute left occipital lobe infarct management with close monitoring of neurological status Pending CTA, Echo, PT\OT Quality Stroke Does the patient have a stroke diagnosis?: Yes Reason for No Anti-thrombotic by Day Two: N/A - Med Ordered VTE Prior VTE?: Yes VTE Risk Level:: Medical - moderate - high VTE Device Contraindication: Treatment Not Indicated VTE Drug Contraindication: N/A - Med Ordered
--- NOTE | 2024-03-07 15:06 | MHC.CM.PN ---
CM MET WITH PT AND DAUGHTER AT BEDSIDE WITH A PRODUCT DELIVERY SPECIALIST PT LIVES ALONE AND HAS 52 EXTENDER HOURS PER WEEK, AND HER DAUGHTER IS THERE DAILY PT USES A WALKER FOR DME PT DOES NOT HAVE A HCP, IT WAS DISCUSSED, HOWEVER PT IS SLIGHTLY CONFUSED CM WILL ATTEMPT TO COMPLETE ONE WITH PT OVER THE WEEKEND IF SHE IS AGREEABLE PCP: SULAIMAN SHUKLA IMM DELIVERED DCP: HOME, RESUME EXTENDER SERVICES DAUGHTER TO TRANSPORT
[2024-03-07 16:39] VITALS: BP 152/68; PULSE 64; O2SAT 100
[2024-03-07] MEDS: iohexoL 350 MG/ML 100 ML INFUS..BTL IV (17:04)
[2024-03-07] MEDS: 0.9 % Sodium Chloride Flush 3 ML SYRINGE IVFLUSH ×2 (17:13→20:44)
[2024-03-07] MEDS: cefTRIAXone sodium 1 GM in 0.9 % Sodium Chloride 50 ML IV (17:13)
[2024-03-07 20:00] VITALS: BP 144/66; PULSE 80; RESP 19; TEMP 37.1; O2SAT 95
[2024-03-07] MEDS: clonazePAM 0.5 MG TABLET PO (20:44)
[2024-03-07] MEDS: Atorvastatin Calcium 40 MG TABLET PO (20:44)
[2024-03-07] MEDS: cloNIDine HCL 0.2 MG TABLET PO (20:44)
[2024-03-07] MEDS: Haloperidol Lactate 5 MG/ML VIAL 2 MG IM (21:33)
[2024-03-07 23:18] VITALS: BP 132/60; PULSE 91; RESP 19; TEMP 37.1; O2SAT 97
[2024-03-08] VITALS (7 sets, daily range): BP systolic 135–176; BP diastolic 60–74; PULSE 66–90; RESP 18–20; TEMP 36–37.3; O2SAT 97–100
[2024-03-08] MEDS: Escitalopram Oxalate 20 MG TABLET PO (08:24)
[2024-03-08] MEDS: 0.9 % Sodium Chloride Flush 3 ML SYRINGE IVFLUSH ×3 (08:24→19:38)
[2024-03-08] MEDS: Apixaban 5 MG TABLET PO ×2 (08:24→19:37)
[2024-03-08] MEDS: Aspirin Enteric Coated 81 MG TABLET.DR PO (08:24)
[2024-03-08] MEDS: Nitroglycerin 0.4 MG TAB.SUBL SUBLINGUAL (08:25)
[2024-03-08] MEDS: Metoprolol Succinate ER 25 MG TAB.ER.24H PO (08:25)
--- NOTE | 2024-03-08 10:10 | MHC.CM.PN ---
Addendum entered by Madina Castellanos 03/08/24 16:15: CM RECEIVED A CALL FROM [facility] LIAISON WHO REQUESTED PTS TRANSPORT BE CHANGED TO 1300 HOURS DUE TO THEIR PLANNED DISCHARGES TRANSPORT TIME CHANGED, RN, MD, AND PT/DAUGHTER AWARE Addendum entered by Madina Castellanos 03/08/24 13:14: CM MET WITH PT AND DAUGHTER/HCP, YOLANDA AT BEDSIDE YOLANDA SAYS SHE WOULD PREFER THE PT GO TO [facility] REFERRAL MADE TO [facility], THEY ARE OFFERING A BED FOR TOMORROW MORNING PT WILL DC TO [facility] [place] 03/09/24, @ 1000 HOURS VIA BLS Original Note: CM MET WITH PT AND FAMILY AT BEDSIDE WITH A MANAGER BEHAVIORAL THEY ARE AWARE STR IS BEING RECOMMENDED AND ARE AGREEABLE TO LOCAL REFERRALS PT COMPLETED A HCP NAMING HER DAUGHTER, YOLANDA, AND SON, KAMERON, HER AGENTS REFERRALS PLACED TO [facility] PER DISCUSSION, AWAITING RESPONSES.
[2024-03-08] MEDS: Acetaminophen 325 MG TABLET 975 MG PO (11:38)
--- NOTE | 2024-03-08 12:44 | HO.PM.IMPN ---
Subjective Subjective Date of Service: 03/08/24 Interval History: Patient was seen and evaluated this morning Feels better overall as right sided weakness improved Mildly more confused overnight tolerating diet no reported other events Review of Systems Review of Systems: Yes all other systems are reviewed and are negative Physical Exam Vital Signs: Vital Signs: Last Vital Signs Temp 99.1 F 03/08/24 11:23 Pulse 78 03/08/24 11:23 Resp 18 03/08/24 11:23 BP 168/72 H 03/08/24 11:23 Pulse Ox 100 03/08/24 11:23 O2 Del Method Room Air 03/08/24 11:23 BMI result Body Mass Index 35.4 Const: Other: Constitutional : Awake, interactive, not in distress Neck : Normal inspection, Supple Cardiovascular : RRR, no JVP, no lower extremity edema Respiratory : good bilateral air entry, no crackles, wheezes or rhonchi Gastrointestinal: soft, lax, Normal bowel sounds, Non tender Skin : Warm, Dry Neurological : Alert & oriented x3, mild right sided hemiparesis, 3/5 RUE and RLE , CN 2-12 within normal Objective Data Active Medications Acetaminophen (Acetaminophen 325 Mg Tablet) 975 mg PO Q6H PRN PRN Reason: mild pain, headache or fever Last Admin: 03/08/24 11:38 Dose: 975 mg Documented By: KEYLA Albuterol Sulfate (Albuterol Sulfate 90 Mcg 8 Gm Inhaler) 1 puff INHALE Q4H PRN PRN Reason: Shortness of Breath/Wheezing Apixaban (Apixaban 5 Mg Tablet) 5 mg PO BID [facility] Last Admin: 03/08/24 08:24 Dose: 5 mg Documented By: KEYLA Aspirin (Aspirin Enteric Coated 81 Mg Tablet.) 81 mg PO DAILY [facility] Last Admin: 03/08/24 08:24 Dose: 81 mg Documented By: KEYLA Atorvastatin Calcium (Atorvastatin Calcium 40 Mg Tablet) 40 mg PO BEDTIME [facility] Last Admin: 03/07/24 20:44 Dose: 40 mg Documented By: CHINEDU Clonazepam (Clonazepam 0.5 Mg Tablet) 0.5 mg PO BID PRN PRN Reason: Anxiety Last Admin: 03/07/24 20:44 Dose: 0.5 mg Documented By: CHINEDU Clonidine HCl (Clonidine Hcl 0.2 Mg Tablet) 0.2 mg PO BEDTIME [facility]; Protocol Last Admin: 03/07/24 20:44 Dose: 0.2 mg Documented By: CHINEDU Escitalopram Oxalate (Escitalopram Oxalate 20 Mg Tablet) 20 mg PO DAILY [facility] Last Admin: 03/08/24 08:24 Dose: 20 mg Documented By: KEYLA Haloperidol Lactate (Haloperidol Lactate 5 Mg/Ml Vial) 2 mg IM ONCE PRN PRN Reason: agitation Last Admin: 03/07/24 21:33 Dose: 2 mg Documented By: CHINEDU Comments: severe agitation. Ceftriaxone Sodium 1 gm/ (Sodium Chloride) 50 mls @ 100 mls/hr IV Q24H [facility] Last Infusion: 03/07/24 18:00 Dose: Infused Documented By: CHINEDU Metoprolol Succinate (Metoprolol Succinate Er 25 Mg Tab.Er.24h) 25 mg PO DAILY [facility]; Protocol Last Admin: 03/07/24 09:40 Dose: 25 mg Documented By: YASMANY Nitroglycerin (Nitroglycerin 0.4 Mg Tab.Subl) 0.4 mg SUBLINGUAL DAILY [facility] Last Admin: 03/08/24 08:25 Dose: 0.4 tab Documented By: KEYLA Sodium Chloride (0.9 % Sodium Chloride Flush 3 Ml Syringe) 3 ml IVFLUSH QSHIFT [facility] Last Admin: 03/08/24 08:24 Dose: 3 ml Documented By: KEYLA Labs 03/07/24 08:02 03/07/24 08:02 Microbiology Microbiology Results: Microbiology 03/06/24 Unknown Urine Culture - Final Urine clean catch - Urine alanis top Assessment and Plan (1) Acute UTI: Status: Acute (2) VTE (venous thromboembolism): Status: Acute Plan Paula Willoughby is a 73 years old woman admitted with: # Worsening right hemiparesis and right eye visual disturbance secondary to left occipital lobe infarct (acute versus subacute). 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 Neurology input appreciated PT\OT rec STR . # UTI cultures growing Mixed bacteria continue IV Ceftriaxone # Essential hypertension. Continue metoprolol. # Hyperlipidemia. Continue statin. # History of VTE. Continue Eliquis. # Anxiety. Clonidine at bedtime as needed. Avoid BDZ for now. # CAD. Continue aspirin and statin. # History of breast cancer. Continue raloxifene. # Tobacco smoking. Tobacco cessation education. DVT prophylaxis: Eliquis Code status: Full Patient will need hospitalization overnight for acute left occipital lobe infarct management with close monitoring of neurological status Pending safe discharge plan to SNF and clinical improvement Quality Stroke Does the patient have a stroke diagnosis?: Yes Reason for No Anti-thrombotic by Day Two: N/A - Med Ordered VTE Prior VTE?: Yes VTE Risk Level:: Medical - moderate - high VTE Device Contraindication: Treatment Not Indicated VTE Drug Contraindication: N/A - Med Ordered
--- NOTE | 2024-03-08 12:48 | PM.NEUROCN ---
History of Present Illness Data of Consult Service Date: 03/08/24 Primary Care Provider: Timmy Silva MD HPI Reason for consult: Stroke 73 years old woman taking anticoagulation for DVT came to hospital with new onset of confusion. There was no focal weakness or headache or difficulty with speech or language. She was diagnosed with a subacute infarct. When I saw her she was comfortable taking her lunch. Review of Systems Review of Systems: No recent cold or flu-like illness headache or chest symptoms. ON LICENSE OF [facility] Past Medical History Medical History (Updated 03/08/24 @ 12:51 by Attila Galan MD) Personal history of nicotine dependence History of non-ST elevation myocardial infarction (NSTEMI) (~2011) CAD (coronary artery disease) Hyperlipidemia Hypertension Osteopenia (~2011) History of CVA (cerebrovascular accident) (~2005) Tubular adenoma of colon (~2003) Pulmonary emboli (~12/2019) Ductal carcinoma in situ (DCIS) of right breast (~2010) COPD (chronic obstructive pulmonary disease) Arthritis Family History Family History Mother Hx of skin cancer, basal cell Surgical History Surgical History History of lithotripsy (~2012) History of colonoscopy History of right mastectomy (~2011) History of coronary angioplasty with insertion of stent (~2011) History of lumpectomy of right breast (~2010) History of reversal of tubal ligation Social History Social History Household Members: None Housing: Apartment Are you a primary lawn care professional to a significant other at home: No Do you presently have visiting nurse or other home services: Yes (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) Patient Tobacco Use Status: Current everyday Tobacco user Tobacco use type: Cigarette Cigarettes Per Day: 5 Years Smoked: (current smoker, onset 21yo, 1ppd x 51yrs, now 3-5cig/day - 40+PYH) e-Cigarette/Vaping Use: Currently Using service: No Current occupational status: disabled Meds Allergies Allergy/AdvReac Type Severity Reaction Status Date / Time hydrocodone [Vicodin] Allergy Unknown swelling Verified 03/06/24 19:36 ALL OVER Active Medications: Current Medications Acetaminophen (Acetaminophen 325 Mg Tablet) 975 mg PO Q6H PRN PRN Reason: mild pain, headache or fever Last Admin: 03/08/24 11:38 Dose: 975 mg Albuterol Sulfate (Albuterol Sulfate 90 Mcg 8 Gm Inhaler) 1 puff INHALE Q4H PRN PRN Reason: Shortness of Breath/Wheezing Apixaban (Apixaban 5 Mg Tablet) 5 mg PO BID [facility] Last Admin: 03/08/24 08:24 Dose: 5 mg Aspirin (Aspirin Enteric Coated 81 Mg Tablet.Dr) 81 mg PO DAILY [facility] Last Admin: 03/08/24 08:24 Dose: 81 mg Atorvastatin Calcium (Atorvastatin Calcium 40 Mg Tablet) 40 mg PO BEDTIME [facility] Last Admin: 03/07/24 20:44 Dose: 40 mg Clonazepam (Clonazepam 0.5 Mg Tablet) 0.5 mg PO BID PRN PRN Reason: Anxiety Last Admin: 03/07/24 20:44 Dose: 0.5 mg Clonidine HCl (Clonidine Hcl 0.2 Mg Tablet) 0.2 mg PO BEDTIME [facility]; Protocol Last Admin: 03/07/24 20:44 Dose: 0.2 mg Escitalopram Oxalate (Escitalopram Oxalate 20 Mg Tablet) 20 mg PO DAILY [facility] Last Admin: 03/08/24 08:24 Dose: 20 mg Haloperidol Lactate (Haloperidol Lactate 5 Mg/Ml Vial) 2 mg IM ONCE PRN PRN Reason: agitation Last Admin: 03/07/24 21:33 Dose: 2 mg Ceftriaxone Sodium 1 gm/ (Sodium Chloride) 50 mls @ 100 mls/hr IV Q24H [facility] Last Infusion: 03/07/24 18:00 Dose: Infused Metoprolol Succinate (Metoprolol Succinate Er 25 Mg Tab.Er.24h) 25 mg PO DAILY [facility]; Protocol Last Admin: 03/07/24 09:40 Dose: 25 mg Nitroglycerin (Nitroglycerin 0.4 Mg Tab.Subl) 0.4 mg SUBLINGUAL DAILY [facility] Last Admin: 03/08/24 08:25 Dose: 0.4 tab Sodium Chloride (0.9 % Sodium Chloride Flush 3 Ml Syringe) 3 ml IVFLUSH QSHIFT [facility] Last Admin: 03/08/24 08:24 Dose: 3 ml Home Medications ?Medication ?Instructions ?Recorded ?Confirmed ?Last Taken ?Type clonazepam 0.5 mg tablet 0.5 mg PO BID PRN Anxiety 08/19/20 03/07/24 Unknown History clonidine HCl 0.2 mg tablet 0.2 mg PO BEDTIME 08/19/20 03/07/24 Unknown History escitalopram oxalate 20 mg tablet 20 mg PO DAILY 08/19/20 03/07/24 Unknown History (Lexapro) metoprolol succinate 25 mg 25 mg PO DAILY 08/19/20 03/07/24 Unknown History tablet,extended release 24 hr acetaminophen 650 mg 650 mg PO Q8H PRN Pain 11/23/20 03/07/24 Unknown History tablet,extended release albuterol sulfate 90 mcg/actuation 90 mcg inhalation Q4H PRN 11/23/20 03/07/24 Unknown History aerosol inhaler Shortness Of Breath Or Wheezing nitroglycerin 0.4 mg sublingual 0.4 mg sublingual DAILY 11/23/20 03/07/24 Unknown History tablet Physical Exam Vital Signs: Vital Signs: Last Vital Signs Temp 99.1 F 03/08/24 11:23 Pulse 78 03/08/24 11:23 Resp 18 03/08/24 11:23 BP 168/72 H 03/08/24 11:23 Pulse Ox 100 03/08/24 11:23 O2 Del Method Room Air 03/08/24 11:23 BMI result Body Mass Index 35.4 Neuro: Other: He is alert and awake with normal spontaneity of speech fluency comprehension and affect. There is mild right arm or leg weakness. 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 Speech is normal. Visual latman were difficult to determine but she has not having any difficulty eating her lunch with her left hand. Results Labs 03/07/24 08:02 03/07/24 08:02 Labs: Head CT revealed a large left posterior cerebral artery area subacute infarct. MRI of brain confirm that lesion and also revealed a tiny right middle cerebral artery parietal area punctate area of restricted diffusion. EKG revealed sinus rhythm an echocardiogram did not reveal any significant abnormality. Microbiology Microbiology Results: Microbiology 03/06/24 Unknown Urine clean catch - Urine alanis top Urine Culture - Final Assessment and Plan (1) Cerebral infarction: Qualifiers: Cerebral infarction mechanism: embolism Precerebral and cerebral artery: posterior cerebral artery Laterality of affected vessel: left Qualified Code(s): I63.432 - Cerebral infarction due to embolism of left posterior cerebral artery Status: Acute 73 years old woman with embolic looking large left posterior cerebral artery area infarct. There is a tiny area of similar lesion in right upper division middle cerebral artery. Mainstay of management is blood pressure control continuation of anticoagulation and education of the patient in the family that she might night pay attention to her right-sided visual field. She should not drive. Procedures Date of Service Date of Service: 03/08/24
[2024-03-08] MEDS: cefTRIAXone sodium 1 GM in 0.9 % Sodium Chloride 50 ML IV (16:31)
[2024-03-08] MEDS: cloNIDine HCL 0.2 MG TABLET PO (19:37)
[2024-03-08] MEDS: Atorvastatin Calcium 40 MG TABLET PO (19:37)
[2024-03-09] VITALS: BP 133/63; PULSE 66; RESP 18; TEMP 36.4; O2SAT 98
[2024-03-09] MEDS: clonazePAM 0.5 MG TABLET PO (00:06)
[2024-03-09 01:00] VITALS: RESP 18
[2024-03-09 03:25] VITALS: BP 142/70; PULSE 70; RESP 18; TEMP 36.3; O2SAT 98
[2024-03-09 07:22] VITALS: BP 142/65; PULSE 66; RESP 18; TEMP 36.8; O2SAT 98
[2024-03-09] MEDS: Nitroglycerin 0.4 MG TAB.SUBL SUBLINGUAL (08:44)
[2024-03-09 08:45] VITALS: BP 142/65; PULSE 66
[2024-03-09] MEDS: Metoprolol Succinate ER 25 MG TAB.ER.24H PO (08:45)
[2024-03-09] MEDS: Aspirin Enteric Coated 81 MG TABLET.DR PO (08:45)
[2024-03-09] MEDS: 0.9 % Sodium Chloride Flush 3 ML SYRINGE IVFLUSH (08:45)
[2024-03-09] MEDS: Escitalopram Oxalate 20 MG TABLET PO (08:45)
[2024-03-09] MEDS: Apixaban 5 MG TABLET PO (08:45)
--- NOTE | 2024-03-09 11:35 | P.DS_ITS ---
DS: Providers Provider Date of Service: 03/09/24 Date of admission: 03/06/24 23:09 Primary care physician: Timmy Silva MD Consults: 03/06/24 23:03 Consult to Neurology Routine Consulting Provider: [facility] Reason for consultation: stroke symptoms Has provider been notified: No DS: Diagnosis Discharge Diagnosis (1) Cerebral infarction: Status: Acute (2) VTE (venous thromboembolism): Status: Acute (3) Acute UTI: Status: Acute (4) Acute CVA (cerebrovascular accident): Status: Acute DS: Summary Hospital Course Hospital Course: Admission note Paula Willoughby is a 73 years old woman with past medical history significant for old CVA with right hemiparesis, VTE on Eliquis, CAD and hypertension presents to the ED after her daughter found her to be confused and having worsening weakness to the right side. Patient also reports right eye vision difficulty and mild slurred speech. According to daughter the symptoms started yesterday at 3 PM. Patient denied any headache, nausea, dizziness, chest pain, shortness on breath or palpitations. She did not report any acute gastrointestinal or genitourinary symptoms. There is no fevers chills reported. Patient is on ongoing tobacco smoker however, she is currently smoking about 1 cigarette a day. Denied alcohol abuse or illicit drug use. Patient takes a baby aspirin daily. In the ED, she was found to have stable vital signs. Blood workup including CBC and CMP unremarkable. Troponin is negative. Head CT scan without contrast showed left occipital lobe infarct (acute versus subacute). ECG showed normal sinus rhythm without acute ischemic changes. Hospital course The patient presented with worsening right hemiparesis and right eye visual disturbance secondary to acute left occipital lobe infarct based on CTA and MRI images. Her symptoms Improved during hospital stay. as she was resumed on full dose Eliquis vs (the patient was taking only 1 tab daily before) along with Atorvastatin as ECHO showing EF 60%. 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 Neurology evaluated the patient and believe she had embolic event in the LPCA area with goal to control blood pressure and take FULL dose anticoagulation. She should not drive and will need to pay attention to her right side visual field. Evaluated by PT\OT who recommended STR Noticed to have UTI as cultures growing Mixed bacteria. Treated with IV Ceftriaxone. To be discharged on Ceftin to finish antibiotics. Discharge Plan Take Eliquis 5 mg twice daily Take Atorvastatin 80 mg daily Continue Ceftin as prescribed Increase physical activity as tolerated Time Attestation Discharge Coordination Time (in mins): 42 Quality: Safe Use of Opioids Does Pt have an Active Cancer Diagnosis on the Problem List?: No Quality: Stroke Does the patient have a stroke diagnosis?: Yes Reason for No Anti-thrombotic at DC: Drug treatment not indicated Reason for No Anticoagulant at DC: N/A - Med Ordered Reason Not Initiating IV-Tpa: Drug treatment not indicated Reason for No Anti-thrombotic by Day Two: N/A - Med Ordered Reason for No Statin at DC: N/A - Med Ordered Physical Exam Vital Signs: Vital Signs: Last Vital Signs Temp 98.3 F 03/09/24 07:22 Pulse 66 03/09/24 08:45 Resp 18 03/09/24 07:22 BP 142/65 H 03/09/24 08:45 Pulse Ox 98 03/09/24 07:22 O2 Del Method Room Air 03/09/24 07:22 BMI result Body Mass Index 35.4 Const: Other: Constitutional : Awake, interactive, not in distress Neck : Normal inspection, Supple Cardiovascular : RRR, no JVP, no lower extremity edema Respiratory : good bilateral air entry, no crackles, wheezes or rhonchi Gastrointestinal: soft, lax, Normal bowel sounds, Non tender Skin : Warm, Dry Neurological : Alert & oriented x3, mild right sided hemiparesis, 4/5 RUE and RLE with amputated toes, normal spontaneity of speech fluency, normal comprehension and affect. DS: Data Imaging MRI - head: Radiologist's impression: ITS Impressions Head CT 03/06/24 19:57 IMPRESSION: 1. Left occipital lobe infarct as above which is likely late acute to subacute in duration. No hemorrhage. 2. Old infarcts as above. 3. No mass effect. No midline shift. No hemorrhage. Brain MRI 03/07/24 11:40 IMPRESSION: Acute left LABORATORY EQUIPMENT INSTALLER territory infarction involving the left occipital lobe, medial left temporal lobe, and left thalamus with laminar necrosis and mild gyral petechial hemorrhage. Otherwise, no hemorrhagic conversion of infarct evident. Multiple chronic infarcts and chronic white matter microangiopathy as described with generalized brain parenchymal volume loss. Head/Neck CTA 03/07/24 17:03 IMPRESSION: 1. Redemonstration of an evolving acute left LABORATORY EQUIPMENT INSTALLER territory infarct. No evidence of hemorrhagic transformation. 2. Occlusion of the P2 segment of the left LABORATORY EQUIPMENT INSTALLER. 3. The distal left CHRYSTAL complex is not well visualized and is likely occluded, likely accounting for chronic encephalomalacia in the left CHRYSTAL territory Discharge Plan Discharge Anticipated Discharge Date/Time: 03/09/24 11:21 Patient Disposition: Xfer SNF Discharge Diagnosis: Acute stroke Referrals: Timmy Silva MD [Primary Care Provider] - 1 Week Discharge Medications: New cefuroxime axetil 250 mg tablet 250 mg PO BID Qty: 4 0RF atorvastatin 80 mg tablet 80 mg PO BEDTIME Qty: 90 0RF Continued raloxifene 60 mg Tablet 60 mg PO DAILY Qty: 90 4RF Eliquis 5 mg Tablet 5 mg PO BID Qty: 60 3RF Rx Instructions: To start when INR is 2 or below. escitalopram oxalate [Lexapro] 20 mg tablet 20 mg PO DAILY clonidine HCl 0.2 mg tablet 0.2 mg PO BEDTIME clonazepam 0.5 mg tablet 0.5 mg PO BID PRN (Reason: Anxiety) metoprolol succinate 25 mg tablet extended release 24 hr 25 mg PO DAILY albuterol sulfate 90 mcg/actuation HFA aerosol inhaler 90 mcg inhalation Q4H PRN (Reason: Shortness Of Breath Or Wheezing) acetaminophen 650 mg tablet extended release 650 mg PO Q8H PRN (Reason: Pain) nitroglycerin 0.4 mg tablet, sublingual 0.4 mg sublingual DAILY Discharge Orders: Discharge Order (Routine); Ordered 03/09/24 Ordered By: Prachi Jacques Diet: Low salt diet Activity on Discharge: As tolerated Stand Alone Forms: Patient Portal Discharge page Print Language: [place] Care Plan Goals: Read below Health Concerns: Read below Plan of Treatment: Read below Assessment: Take Eliquis 5 mg twice daily Take Atorvastatin 80 mg daily Increase physical activity as tolerated
[2024-03-09 11:58] VITALS: BP 132/66; PULSE 64; RESP 18; TEMP 36.1; O2SAT 97
--- NOTE | 2024-03-09 12:31 | MHC.CM.PN ---
PT MEDICALLY CLEARED FOR DC TO [facility], DC SUMMARY SENT VIA [facility] PREBOOKED FOR 1PM TRANSPORT.
--- NOTE | 2024-03-12 13:40 | MHC.STROKE ---
Late entry: 03/07/24 [id number] This science writer met with patient and family to discuss stroke education utilizing medical detail representative Sebastian. Family was present with patient. Pt was out of bed to recliner. She was awake, alert, and answering questions. We discussed stroke education utilizing the stroke booklet. We discussed her visual disability and plan of care of patient. All questions were answered. Family and patient had no concerns regarding the care thus far. Will continue to assist patient and family as needed.
== END 2024-03-09 13:03 | disposition skilled nursing facility (03) | DRG 65 ==
LOC: HO.ED 23:08 → HO.EDOVER 23:11 → HO.IMC 03-07 00:15
PROVIDERS: Nurse Practitioner Family; Admitting Provider Internal Medicine; Emergency Provider Emergency Medicine; PCP Internal Medicine; Visit Provider Student in an Organized Health Care Education/Training Program
DX: I63.432 Cerebral infarction due to embolism of left posterior cerebral artery (principal); G81.91 Hemiplegia, unspecified affecting right dominant side; N39.0 Urinary tract infection, site not specified; H53.8 Other visual disturbances; R29.704 NIHSS score 4; C50.911 Malignant neoplasm of unspecified site of right female breast; I25.10 Atherosclerotic heart disease of native coronary artery without angina pectoris; J44.9 Chronic obstructive pulmonary disease, unspecified; I10 Essential (primary) hypertension; E78.5 Hyperlipidemia, unspecified; F41.9 Anxiety disorder, unspecified; Z86.718 Personal history of other venous thrombosis and embolism; Z90.11 Acquired absence of right breast and nipple; Z20.822 Contact with and (suspected) exposure to COVID-19; Z95.5 Presence of coronary angioplasty implant and graft; Z79.01 Long term (current) use of anticoagulants; Z79.899 Other long term (current) drug therapy
CPT/HCPCS: 0241U; 36415; 70450; 70496; 70498; 70551; 80048; 80053; 80061; 81001; 83036; 83735; 84484; 85025; 87086; 93005; 93306; 97162; 99285; J0696; J1630; Q9957; Q9967

== ENCOUNTER → 2024-03-06 19:36 | Outpatient (BNV) | payer MEDICARE, MEDICAID, SELFPAY | PROVIDERS: Admitting Provider Internal Medicine; Emergency Provider Emergency Medicine; PCP Internal Medicine; Visit Provider Internal Medicine | DX: R41.82 Altered mental status, unspecified (principal) | CPT/HCPCS: 93010 ==

== ENCOUNTER 2024-03-06 23:09 | Outpatient (BNV) | payer MEDICARE, MEDICAID, SELFPAY | END 2024-03-07 07:00 | PROVIDERS: Admitting Provider Internal Medicine; Emergency Provider Emergency Medicine; PCP Internal Medicine; Visit Provider Internal Medicine | DX: I35.0 Nonrheumatic aortic (valve) stenosis (principal); I34.81 Nonrheumatic mitral (valve) annulus calcification; I36.1 Nonrheumatic tricuspid (valve) insufficiency; I63.9 Cerebral infarction, unspecified | CPT/HCPCS: 93306 ==

== ENCOUNTER → 2024-03-06 23:09 | Outpatient (BNV) | payer MEDICARE, MEDICAID, SELFPAY | PROVIDERS: Admitting Provider Internal Medicine; Emergency Provider Emergency Medicine; PCP Internal Medicine; Visit Provider Internal Medicine | DX: I63.432 Cerebral infarction due to embolism of left posterior cerebral artery (principal); N39.0 Urinary tract infection, site not specified | CPT/HCPCS: 99223; 99232; 99233; 99239 ==

== ENCOUNTER → 2024-03-06 23:09 | Outpatient (BNV) | payer MEDICARE, MEDICAID, SELFPAY | PROVIDERS: Admitting Provider Internal Medicine; Emergency Provider Emergency Medicine; PCP Internal Medicine; Visit Provider Psychiatry & Neurology Neurology | DX: I63.432 Cerebral infarction due to embolism of left posterior cerebral artery (principal) | CPT/HCPCS: 99222 ==

== ENCOUNTER 2024-10-05 12:53 | Inpatient (IN) | payer MEDICARE, MEDICAID, SELFPAY ==
[2024-10-05] VITALS (7 sets, daily range): BP systolic 118–178; BP diastolic 57–89; PULSE 50–90; RESP 16–20; TEMP 36.4–37.1; O2SAT 95–100; BMI 24.2
--- NOTE | ~2024-10-05 | CT_ITS ---
EXAMINATION: CT ABDOMEN AND PELVIS WITH CONTRAST CLINICAL INFORMATION: Abdominal pain, nausea and vomiting COMPARISON: CT abdomen and pelvis 01/09/2016. Intervening chest CT scans. TECHNIQUE: Multidetector volumetric images were obtained from the superior aspect of the liver through the pubic symphysis following administration 85 mL of Omnipaque 350 intravenous contrast. Sagittal and coronal reformatted images were obtained on the technologist's workstation. Oral contrast: No This CT examination was performed using dose optimization techniques as appropriate, variously including the following: *Automated exposure control *Adjustment of mA and/or kV according to patient size (this includes techniques or standardized protocols for targeted exams where dose is matched to indication/reason for exam; i.e. extremities or head) *Use of iterative reconstruction technique DLP: 373 mGy-cm FINDINGS: LUNG BASES: Minor dependent atelectasis. Mild coronary disease. LIVER, GALLBLADDER, AND BILIARY TREE: There is no biliary ductal dilation. Common bile duct is dilated measuring 9 mm. Dilation extends to the level of the ampulla. The ampulla appears to open into a large third portion duodenal diverticulum. Punctate calcification in the right lobe of the liver likely a granuloma. Liver size and contour are normal. Gallbladder is grossly normal in appearance. No stones, wall thickening or free fluid. PANCREAS: Pancreatic duct measures 2.5 mm at the upper limits of normal. No evidence of pancreatitis. There is a large diverticulum arising off the third portion of the duodenum impacting the head of the pancreas. SPLEEN: Normal size spleen with small accessory spleen. ADRENAL GLANDS: No masses. KIDNEYS AND URETERS: Symmetric renal function. Innumerable bilateral renal cysts. No further evaluation required. A nonobstructing 6 mm calculus in the left lower pole. BLADDER: Unremarkable. GASTROINTESTINAL TRACT: The stomach is distended with air and fluid. Thick-walled duodenal bulb may represent duodenitis. A 4 cm diverticulum arising off of the third portion of the duodenum. No small bowel obstruction. No discrete mesenteric abnormality. Normal terminal ileum. Normal appendix. Moderate bilateral diverticulosis predominating in the sigmoid colon. No evidence of diverticulitis. No free air or free fluid. ABDOMINAL WALL: Thinning of the anterior abdominal wall musculature. No hernia identified. LYMPH NODES: No bulky lymphadenopathy. VASCULAR: A 2.6 cm fusiform abdominal aortic aneurysm. Minimal change compared with 2016. Follow in 5 years time. PELVIC VISCERA: Uterus appears prominent for the patient's age. Endometrium is not well defined. Prominent endometrium on 2012 ultrasound with no reported fibroids. Recommend nonurgent pelvic ultrasound. OSSEOUS STRUCTURES: Degenerative changes in the spine. CT/CT abdomen pelvis w IV con IMPRESSION: 1. There is new abnormal dilation of the bile ducts through the pancreatic head with a 9 mm common duct. Recommend right upper quadrant ultrasound. 2. The uterus is enlarged for age. Recommend pelvic ultrasound. 3. Sigmoid predominant diverticulosis without evidence of diverticulitis. 4. Nonobstructing left renal calculus. 5. Thick-walled duodenal bulb may represent duodenitis. Clinical correlation advised. Fleischner guidelines were followed. Electronically signed by: Robbie Mattson MD 10/05/2024 04:25 PM ABHI
--- NOTE | ~2024-10-05 | US_ITS ---
EXAMINATION: US ABDOMEN LIMITED CLINICAL INFORMATION: Upper abdominal pain. COMPARISON: None available. TECHNIQUE: Real-time imaging of the gallbladder and common bile duct only FINDINGS: GALLBLADDER: The gallbladder is physiologically distended without evidence of stones, sludge, polyps, wall thickening or pericholecystic fluid. COMMON BILE DUCT: Normal in caliber measuring 0.9 cm in diameter. US/US abdomen limited IMPRESSION: Normal-appearing gallbladder. Electronically signed by: Russ Alexander MD 10/05/2024 08:58 PM EST
--- NOTE | 2024-10-05 13:13 | ECG_ITS ---
Test Reason : abd pain/ nausea/ vomitting Blood Pressure : / mmHG Vent. Rate : 051 BPM Atrial Rate : 051 BPM P-R Int : 140 ms QRS Dur : 094 ms QT Int : 450 ms P-R-T Axes : 061 039 032 degrees QTc Int : 414 ms Sinus bradycardia RSR' or QR pattern in V1 suggests right ventricular conduction delay Borderline ECG When compared with ECG of 06-MAR-2024 19:58, RSR' pattern in V1 is now Present Referred By: Mariza Sousa Electronically Signed By:Obed Mello
--- NOTE | 2024-10-05 13:32 | ED_ITS ---
HPI - Abdominal Pain General Chief Complaint: Abdominal Pain Stated Complaint: ABD PAIN, HX DEMENTIA PER EMS Time Seen by Provider: 10/05/24 13:12 Source: patient and EMS Mode of arrival: EMS Limitations: other (dementia) History of Present Illness ED Provider: BENSON HPI narrative: 74 yo female with PMH of severe dementia, PE on eliquis, HLD, asthma, tubal ligation, CVA with blindness who is coming from home. Had normal AM today with eating and dancing then told son her abdomen hurt has been throwing up since. No other history provided. MD elicited complaint: abdominal pain Pertinent past history: none Onset (ago): hour(s) (few) Pain Consistency: constant Location: periumbilical Severity: moderate Quality: aching Radiation: none Migration to: no migration Exacerbating factors: nothing Relieving factors: nothing Context: history of similar episodes (daughter states this has happened before) Associated symptoms: nausea and vomiting Related Data Home Medications ?Medication ?Instructions ?Recorded ?Confirmed clonazepam 0.5 mg tablet 0.5 mg PO BID PRN Anxiety 08/19/20 08/25/24 clonidine HCl 0.2 mg tablet 0.2 mg PO BEDTIME 08/19/20 08/25/24 escitalopram oxalate 20 mg tablet 20 mg PO DAILY 08/19/20 08/25/24 (Lexapro) metoprolol succinate 25 mg 25 mg PO DAILY 08/19/20 08/25/24 tablet,extended release 24 hr acetaminophen 650 mg 650 mg PO Q8H PRN Pain 11/23/20 08/25/24 tablet,extended release albuterol sulfate 90 mcg/actuation 90 mcg inhalation Q4H PRN 11/23/20 08/25/24 aerosol inhaler Shortness Of Breath Or Wheezing nitroglycerin 0.4 mg sublingual 0.4 mg sublingual DAILY 11/23/20 08/25/24 tablet Previous Rx's ?Medication ?Instructions ?Recorded apixaban 5 mg tablet (Eliquis) 5 mg PO BID #60 tabs 03/09/24 atorvastatin 80 mg tablet 80 mg PO BEDTIME #90 tabs 03/09/24 cyanocobalamin (vitamin B-12) 1,000 mcg sublingual DAILY #90 ea 04/14/24 1,000 mcg sublingual lozenge cyanocobalamin (vitamin B-12) 50 1,000 mcg PO DAILY #90 ea 04/14/24 mcg lozenges (Vitamin B-12) apixaban 5 mg tablet (Eliquis) 5 mg PO BID #180 tabs 05/01/24 raloxifene 60 mg tablet 60 mg PO DAILY #90 tabs 08/25/24 Allergies Allergy/AdvReac Type Severity Reaction Status Date / Time hydrocodone [Vicodin] Allergy Unknown swelling Verified 10/05/24 13:11 ALL OVER Review of Systems Review of Systems ROS unable to be obtained due to dementia [facility] Past Medical History Attestation statement: The following information was validated with the patient. Source: old records reviewed Medical History Nicotine dependence, cigarettes, uncomplicated Cerebral infarction VTE (venous thromboembolism) CVA, old, disturbances of vision History of non-ST elevation myocardial infarction (NSTEMI) (~2011) CAD (coronary artery disease) Hyperlipidemia Hypertension Osteopenia (~2011) History of CVA (cerebrovascular accident) (~2005) Tubular adenoma of colon (~2003) Pulmonary emboli (~12/2019) Ductal carcinoma in situ (DCIS) of right breast (~2010) COPD (chronic obstructive pulmonary disease) Arthritis Surgical History History of lithotripsy (~2012) History of colonoscopy History of right mastectomy (~2011) History of coronary angioplasty with insertion of stent (~2011) History of lumpectomy of right breast (~2010) History of reversal of tubal ligation Family History Family History Mother Hx of skin cancer, basal cell Social History Social History Household Members: None Housing: Apartment Are you a primary primary care provider to a significant other at home: No Do you presently have visiting nurse or other home services: Yes ([employer] at home) Patient Tobacco Use Status: Current everyday Tobacco user Tobacco use type: Cigarette Cigarettes Per Day: 5 Years Smoked: (current smoker, onset 21yo, 1ppd x 51yrs, now 3-5cig/day - 40+PYH) Smoked in Last 30 Days: No e-Cigarette/Vaping Use: Currently Using Use of substances other than those prescribed or required for medical reasons: No Advance Directives: No Advance Directives Information Provided: Yes Do you have a plan to hurt others: No Plan service: No Current occupational status: disabled Physical Exam ED Vital Signs: Vital Signs - 24 hr 10/05/24 13:09 Temperature 98.0 F Pulse Rate 57 Respiratory Rate 20 Blood Pressure 120/60 Pulse Oximetry 99 Oxygen Delivery Method Room Air BMI result Body Mass Index 24.2 Appearance: Alert. Oriented at baseline, active vomiting non bloody. No acute distress. Eyes: Pupils equal, round and reactive to light. ENT: Pharynx normal. Neck: Normal inspection. Neck supple. CVS: Normal heart rate and rhythm. Pulses normal. Respiratory: No respiratory distress. Breath sounds normal. Abdomen: Soft and mild diffuse lower abdominal ttp no rebound Skin: Skin warm and dry. pale skin color. Normal skin turgor. Extremities: No lower extremity edema. No calf ttp Neuro: Oriented X 1 . No motor deficit. No sensory deficit. Course Course Course Narrative: repeat nausea medications for persistent n/v Reevaluation(s) Reevaluation #1: signed out to Dr. Helm pending workup suspect lactic acidosis due to acute vomiting and dehydration not infection or severe sepsis Reevaluation #2: afebrile no WBC count Medical Decision Making Medical Decision Making [facility] Narrative: 74 yo female with PMH of severe dementia, PE on eliquis, HLD, asthma, tubal ligation, CVA here with c/o abdominal pain and n/v at this time she cannot provide much history will obtain labs, EKG, CT scan for SBO. IV tylenol for pain and zofran Differential Diagnosis Differential Diagnoses: The differential diagnosis associated with the presentation includes SBO, viral syndrome, undifferentiated abdomen Admission/Observation Consideration of admission/observation: Escalation of care including admission/observation considered signed out to Volodymyr pending workup Lab Data [facility] Lab Attestation statement: I reviewed the patient's lab results. 10/05/24 13:33 10/05/24 13:33 Labs: Lab Results 10/05/24 Range/Units 13:33 WBC 8.0 (4.8-10.8) X10*3/uL RBC 4.49 (4.20-5.50) X10*6/uL Hgb 13.0 (12.0-16.0) g/dl Hct 39.8 (37.0-47.0) % MCV 88.6 (80.0-98.0) fL MCH 29.0 (27.0-33.0) pg MCHC 32.7 (31.0-35.0) g/dl RDW 13.4 (11.0-16.0) % Plt Count 199 (160-400) X10*3/uL MPV 9.4 (9.4-12.3) fL Immature Gran % (Auto) 0.2 (0.0-0.4) % Neut % (Auto) 55.2 (45-73) % Lymph % (Auto) 34.6 (20-40) % [place] % (Auto) 9.2 (2-11) % Eos % (Auto) 0.6 (0-4) % Baso % (Auto) 0.2 (0-2) % Lymph # (Auto) 2.8 (1.2-4.9) X10*3/uL [place] # (Auto) 0.7 (0.1-1.2) X10*3/uL Eos # (Auto) 0.1 (0.0-0.4) X10*3/uL Baso # (Auto) 0.0 (0.0-0.2) X10*3/uL Abs Immat Gran (auto) 0.02 (0.00-0.03) X10*3/uL Absolute Neuts (auto) 4.4 (2.0-8.3) x10*3/uL Absolute Nucleated RBC 0.000 (0.0-0.012) X10*3/uL Nucleated RBC % (auto) 0.0 (0.0-0.2) /100WBC Sodium 142 (135-145) mmol/L Potassium 4.1 (3.3-5.1) mmol/L Chloride 109 H (96-108) mmol/L Carbon Dioxide 23 (22-29) mmol/L Anion Gap 14 (12-20) BUN 10 (9-16) mg/dL Creatinine 0.78 (0.5-1.4) mg/dL Estim Creat Clear Calc 57.4 Estimated GFR > 60 Random Glucose 106 (60-115) mg/dL Lactic Acid 2.5 H* (0.5-2.0) mmol/L Calcium 9.3 (8.4-10.2) mg/dL Magnesium 2.2 (1.6-2.6) mg/dL Total Bilirubin 0.5 (0.0-1.0) mg/dL Direct Bilirubin 0.2 (0.0-0.5) mg/dL AST 22 (5-31) U/L ALT 11 (0-31) U/L Alkaline Phosphatase 81 (39-117) U/L Troponin I High Sens 2.9 (<3.5-17.0) ng/L Total Protein 6.7 (6.5-8.0) g/dL Albumin 3.8 (3.5-5.0) g/dL Lipase 19 (8-78) U/L Independent Interpretation I performed an independent interpretation of an: EKG and CT Scan Interpretation: Rate: 51 Rhythm: sinus bradycardia [place]: normal Normal P waves. Normal MASSIEL. Normal QRS complex. ST T wave : normal no ELOISA qTC: 414 prior studies: no acute ischemia The study has been interpreted contemporaneously by me. . Radiology Impression Discussion of test interpretation with radiology: I have reviewed the radiologist's reading. Independent Historian Clinical information obtained from an independent historian. History obtained from or confirmed by: EMS External Record Review External record reviewed: Outpatient record Medications Administered Discontinued Medications Generic Name Dose Route Start Last Admin Trade Name Freq PRN Reason Stop Dose Admin Diphenhydramine HCl 25 mg 10/05/24 15:28 10/05/24 15:37 Diphenhydramine Hcl 50 Mg/Ml Vial IVPUSH 10/05/24 15:29 25 mg ONCE ONE Administration Acetaminophen 1,000 mg in 100 mls @ 400 mls/hr 10/05/24 13:13 10/05/24 14:06 Ofirmev IV 10/05/24 13:27 Infused ONCE ONE Infusion Sodium Chloride 1,000 mls @ 999 mls/hr 10/05/24 13:56 10/05/24 14:04 Ns IV 10/05/24 14:56 999 mls/hr .Q1H1M ONE Administration Iohexol 100 ml 10/05/24 14:12 10/05/24 14:12 Iohexol 350 Mg/Ml 100 Ml Infus..Btl IV 10/05/24 14:13 85 ml ONCE ONE Administration Metoclopramide HCl 10 mg 10/05/24 15:28 10/05/24 15:38 Metoclopramide Hcl 10 Mg/2 Ml Vial IVPUSH 10/05/24 15:29 10 mg ONCE ONE Administration Ondansetron HCl 4 mg 10/05/24 13:13 10/05/24 13:45 Ondansetron Odt 4 Mg Tab.Rapdis TRANSLINGU 10/05/24 13:14 4 mg ONCE ONE Administration Discharge Plan Discharge Clinical Impression: Nausea & vomiting Qualifiers: Vomiting type: unspecified Qualified Code(s): R11.2 - Nausea with vomiting, unspecified Prescriptions: No Action cyanocobalamin (vitamin B-12) 1,000 mcg Lozenge 1,000 mcg SUBLINGUAL DAILY Qty: 90 4RF Vitamin B-12 50 mcg Lozenge 1,000 mcg PO DAILY Qty: 90 4RF Eliquis 5 mg Tablet 5 mg PO BID Qty: 180 4RF raloxifene 60 mg Tablet 60 mg PO DAILY Qty: 90 4RF Eliquis 5 mg Tablet 5 mg PO BID Qty: 60 3RF Rx Instructions: To start when INR is 2 or below. atorvastatin 80 mg tablet 80 mg PO BEDTIME Qty: 90 0RF escitalopram oxalate [Lexapro] 20 mg tablet 20 mg PO DAILY clonidine HCl 0.2 mg tablet 0.2 mg PO BEDTIME clonazepam 0.5 mg tablet 0.5 mg PO BID PRN (Reason: Anxiety) metoprolol succinate 25 mg tablet extended release 24 hr 25 mg PO DAILY albuterol sulfate 90 mcg/actuation HFA aerosol inhaler 90 mcg inhalation Q4H PRN (Reason: Shortness Of Breath Or Wheezing) acetaminophen 650 mg tablet extended release 650 mg PO Q8H PRN (Reason: Pain) nitroglycerin 0.4 mg tablet, sublingual 0.4 mg sublingual DAILY Print Language: Ghanaian
[2024-10-05 13:38] LABS: MANUAL DIFF FLAG NO
[2024-10-05 13:40] LABS: Basophils Percent Auto 0.2 % (0-2); Eosinophils Absolute Auto 0.1 X10*3/uL (0.0-0.4); Eosinophils Percent Auto 0.6 % (0-4); Hematocrit 39.8 % (37.0-47.0); Imm Gran Abs Auto 0.02 X10*3/uL (0.00-0.03); Imm Gran Pct Auto 0.2 % (0.0-0.4); Lymphocytes Absolute Auto 2.8 X10*3/uL (1.2-4.9); Lymphocytes Percent Auto 34.6 % (20-40); Mean Corpuscular HGB Conc 32.7 g/dl (31.0-35.0); Mean Corpuscular Volume 88.6 fL (80.0-98.0); Mean Platelet Volume 9.4 fL (9.4-12.3); Monocytes Absolute Auto 0.7 X10*3/uL (0.1-1.2); Monocytes Percent Auto 9.2 % (2-11); Neutrophils Absolute Auto 4.4 x10*3/uL (2.0-8.3); Neutrophils Percent Auto 55.2 % (45-73); Platelet Count 199 X10*3/uL (160-400); Red Blood Count 4.49 X10*6/uL (4.20-5.50); Red Cell Distribution Width 13.4 % (11.0-16.0)
[2024-10-05] MEDS: Acetaminophen 1,000 MG/100 ML PIGGYBACK 400 MG IV (13:45)
[2024-10-05] MEDS: Ondansetron ODT 4 MG TAB.RAPDIS TRANSLINGU (13:45)
--- OUTSIDE RECORDS SUMMARY | 2024-10-05 13:53 | XMS_ITS ---
Author Organization [facility] Address [address] [place] [address] Care Team Providers Care Raw Juice Weigher Name Role Phone Inge Holloway MD, Timmy Primary Care Provide r Ramiro Barrett Unavailable [phone] REASON FOR VISIT screening PROBLEMS Problem Type ICD Code Onset Dates Problem Status W/U Status Risk SNOMED Code Notes Problem Diverticulosis of colon (K57.30) Active confirmed Diverticulosi s of colon (464769109) Encounters Encounter Location Date Provider Diagnosis [facility] [address], [place] [id number] 06/04/2023 Ramiro Lincoln Colon cancer scree ryan Z12.11 ; Colon polyps K63.5 ; Diverticulosis of colon K57.30 and Internal hemorrhoids K64.8 ASSESSMENTS Encounter Date Diagnosis Assessment Notes Treatment Notes Treatment Clinical Notes 06/04/2023 Colon cancer screening (ICD-10 - Z12.11) 06/04/2023 Colon polyps (ICD-10 - K63.5) 06/04/2023 Diverticulosis of colon (ICD-10 - K57.30) 06/04/2023 Internal hemorrhoids (ICD-10 - K64.8) PLAN OF TREATMENT No Information
--- OUTSIDE RECORDS SUMMARY | 2024-10-05 13:53 | XMS_ITS | Patient Health Record ---
Author Organization [facility] Address [address] [place] [address] Care Team Providers Care Image Scientist Name Role Phone Inge Holloway MD, Timmy Primary Care Provide r Ramiro Barrett [phone] ALLERGIES Allergen (clinical drug ingredient) Drug/Non Drug Allergy documented on EMR Reaction Allergy Type Onset Date Status hydrocodone Hydrocodone Unknown Drug Allergy Act torsten codeine Codeine Unknown Drug Allergy Active REASON FOR REFERRAL No Information MEDICATIONS Medication SIG (Take, Route, Frequency, Duration) Notes Start Date End Date Status Furosemide 20 MG TAKE 1 TABLET BY RAVEN TH EVERY DAY Oral for 90 Active Raloxifene HCl 60 MG Oral for 90 Active clonazePAM 0.5 MG TAKE 1 TABLET BY RAVEN TH TWICE A DAY NEEDED Oral for 30 Active Rosuvastatin Calcium 20 MG TAKE 1 TABLET BY MOUTH EVERY DAY Oral for 90 Active cloNIDine HCl 0.2 MG TAKE 1 TABLET BY MO UTH EVERY DAY Oral for 90 Active CeleXA 10 MG 1 tablet Orally Once a day for 30 day(s) Active MiraLax (colon prep) 17 GM/SCOOP 1 238Gm bottle mixed with Gatorade or Crystal Light Orally begin at 5:00 p.m. the day before the procedure for 1 day 01/30/2023 Active Aspirin 81 Active Eliquis 5 MG TAKE 1 TABLET BY RAVEN TH TWICE A DAY Oral for 30 Active Tylenol Arthritis Pain Active Dulcolax (colon prep) 5 MG take at 3:00 p.m and 7:00p.m. Orally two tablets twice a day for one day for 1 day 01/30/2023 Active Advair Diskus 100-50 MCG/ACT INHALE 1 PUFF INTO THE LUNGS TWICE A DAY, IN THE MORNING AND EVENING APPROXIMATELY 12 HOURS APART. Inhalation for 90 Active Metoprolol Succinate ER 25 MG Oral for 90 Active SOCIAL HISTORY Tobacco Use: Social History Observation Description Date Details (start date - stop date) Current Smoker NA - NA Sex Assigned At : Social History Observation Description Sex Assigned At Unknown Tobacco Use/Smoking Question Answer Notes Patient is a current smoker How often do you smoke cigarettes? every day How many cigarettes a day do you smoke? 6-10 Alcohol Screen Question Answer Notes Did you have a drink containing alcohol in the p ast year? 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 (Z79.01) Active confirmed 786663637 Problem Colon cancer screening (Z12.11) Active confirmed 715740920 Problem Pre-procedural examination (Z01.818) Active confirmed [id number] Problem Diverticulosis of colon (K57.30) Active confirmed Diverticulosi s of colon (694235809) PLAN OF TREATMENT Pending Test Test Name Order Date Pathology 06/04/2023 Future Test Test Name Order Date COLONOSCOPY 01/30/2023 Insurance Providers Payer Name Payer Address Payer Phone Subscriber Number Group Number Insured Name Patient Relationship to Insured Coverage Start Date Coverage End Date MEDICARE OF [place] [address] [place] [id number] UMA GREGORIO Self - patient is the insured [facility]ICAID [facility] [employer] [facility] [address] [place] [address] [id number] UMA GREGORIO Self - patient is the insured MEDICAL (GENERAL) HISTORY Medical History History ICD Code [id number] weakness Right-sided breast cancer in 2012-sees Matteo Tanner COPD Arthritis Anxiety/Depression 2 WI's 2011--2 stents placed at that ermelinda e--sees Dr. Corbett Denies DM and renal disease Negative colonoscopy in 2009 DVT LLE--sees Dr. Tanner Hyperlipidemia Surgical History Surgery Date(Month/Year) Right mastectomy Tubal ligation, and reversal
[2024-10-05 13:56] LABS: Alanine Aminotransferase 11 U/L (0-31); Albumin Level 3.8 g/dL (3.5-5.0); Alkaline Phosphatase 81 U/L (39-117); Anion Gap 14 (12-20); Aspartate Amino Transferase 22 U/L (5-31); Bilirubin Direct 0.2 mg/dL (0.0-0.5); Bilirubin Total 0.5 mg/dL (0.0-1.0); Blood Urea Nitrogen 10 mg/dL (9-16); Calcium 9.3 mg/dL (8.4-10.2); Carbon Dioxide 23 mmol/L (22-29); Chloride 109 mmol/L (96-108); Creatinine Clr Calc Pharmacy 57.4; Estimated Glomerular Filt Rate > 60; Glucose Random 106 mg/dL (60-115); Lactic Acid 2.5 mmol/L (0.5-2.0); Lipase 19 U/L (8-78); Magnesium 2.2 mg/dL (1.6-2.6); Potassium 4.1 mmol/L (3.3-5.1); Sodium 142 mmol/L (135-145); Total Protein 6.7 g/dL (6.5-8.0)
--- NOTE | 2024-10-05 13:57 | PC.NURSE ---
Pt output 200ml of jordan emesis. Medicated per MAR with zofran and IV tylenol.
--- NOTE | 2024-10-05 13:58 | PC.NURSE ---
Pt biba from home for abdominal pain with nausea/vomiting starting this morning. Per pt family, she ate breakfast like normal and started c/o abd pain a few hours after. Pt a/ox1, hx of dementia, no increased wob/sob noted, respirations even and unlabored, abdomen soft, tender on palpation. Pt endorsing lower abdominal pain with nausea. Unknown last BM. Output 200ml of jordan colored emesis. 20g IV placed Right AC. EKG and labs obtained, sent to lab. Plan of care ongoing.
[2024-10-05 14:03] LABS: Troponin-I High Sensitivity 2.9 ng/L (<3.5-17.0)
[2024-10-05] MEDS: 0.9 % Sodium Chloride 1,000 ML 999 ML IV ×2 (14:04→19:32)
[2024-10-05] MEDS: iohexoL 350 MG/ML 100 ML INFUS..BTL IV (14:12)
[2024-10-05] MEDS: diphenhydrAMINE HCL 50 MG/ML VIAL 25 MG IVPUSH (15:37)
[2024-10-05 15:38] LABS: Reflex Lactate? Lactic Acid Added
[2024-10-05] MEDS: Metoclopramide HCl 10 MG/2 ML VIAL IVPUSH (15:38)
[2024-10-05 16:25] LABS: Appearance Urine Cloudy; Color Urine Yellow; Glucose Urine UA Negative (Negative); Leukocyte Esterase Urine Small (1+) (Negative); Nitrite Urine Negative (Negative); Specific Gravity - Urine >= 1.030 (1.005-1.025); UMIC TRIGGER UACC YES; Urine Blood Large (3+) (Negative); Urine Ketones Trace mg/dL (Negative); Urine Protein 30 (1+) mg/dL (Neg-Trace)
[2024-10-05 16:49] LABS: Bacteria Urine 4+ (None Seen); Hyaline Casts Urine 0-2 /LPF (0-2); RBC Urine >20 /HPF (0-2); Squamous Epithelial Cell Urine 0-2 /HPF (0-2); UACC Culture Trigger YES; WBC Urine 21-50 /HPF (0-5)
[2024-10-05 16:58] LABS: ~Lactic Acid-LAB USE ONLY 1.6 mmol/L (0.5-2.0)
[2024-10-05 17:26] LABS: Influenza A PCR NEGATIVE (Negative); Influenza B PCR NEGATIVE (Negative); Resp Syncy Virus RNA Qual PCR NEGATIVE (Negative); SARS COV2 PCR INHOUSE NEGATIVE (Negative)
[2024-10-05] MEDS: Morphine Sulfate 2 MG/ML CARTRIDGE IVPUSH (19:34)
[2024-10-05] MEDS: ondansetron HCL 4 MG/2 ML VIAL IVPUSH ×2 (19:34→22:37)
[2024-10-05] MEDS: cefTRIAXone sodium 1 GM VIAL IVPUSH (19:35)
--- NOTE | 2024-10-05 22:06 | PC.NURSE ---
pt had another episode of vomiting, family nervous to take pt home and have her aspirate on her vomit, they do not have a hospital bed yet
--- NOTE | 2024-10-05 23:27 | PM.IMHP ---
History of Present Illness Date of Service: 10/05/24 Attending physician on admission: Herminio Batista Chief Complaint: Vomiting Paula Willoughby is a 74 years old woman with past medical history significant for dementia, stroke with right hemiparesis, UTIs, essential hypertension, hyperlipidemia, VTE on Eliquis, anxiety, CAD and breast cancer was brought to the emergency department due to multiple events of vomiting that started today around the afternoon. Due to patient's dementia it is very fecal to assess any symptoms. Daughter who was at bedside and caregiver did not noted any abdominal bloating, fever or diarrhea. In the ED, she was found to have stable vital signs. Last blood pressure 179/67. Blood workup showed normal CBC. There are no significant electrolyte imbalances. Creatinine 0.79 and BUN 10. Lactic acid was initially 2.5, most recent 1.6. LFTs and lipase are normal. Urinalysis consistent with urinary tract infection. Viral testing is negative for COVID-19, influenza and RSV. Abdomen pelvis CT scan showed new abnormal dilatation of bile ducts through the pancreatic head with 9 mm common duct, enlarged uterus, sigmoid diverticulosis without diverticulitis, nonobstructive left renal calculi and thickening of the duodenal bulb that may represent duodenitis. Abdomen US showed no CBD dilatation. ED tx: Multiple doses of Zofran, Reglan 10 mg IV, ceftriaxone 1 g IV, NS 2 L bolus, Tylenol 1 g IV, morphine 2 mg IV Review of Systems Review of Systems: Yes Unobtainable due to mental status [facility] Medical History Nicotine dependence, cigarettes, uncomplicated Cerebral infarction VTE (venous thromboembolism) CVA, old, disturbances of vision History of non-ST elevation myocardial infarction (NSTEMI) (~2011) CAD (coronary artery disease) Hyperlipidemia Hypertension Osteopenia (~2011) History of CVA (cerebrovascular accident) (~2005) Tubular adenoma of colon (~2003) Pulmonary emboli (~12/2019) Ductal carcinoma in situ (DCIS) of right breast (~2010) COPD (chronic obstructive pulmonary disease) Arthritis Family History Mother Hx of skin cancer, basal cell Surgical History History of lithotripsy (~2012) History of colonoscopy History of right mastectomy (~2011) History of coronary angioplasty with insertion of stent (~2011) History of lumpectomy of right breast (~2010) History of reversal of tubal ligation Social History Household Members: None Housing: Apartment Are you a primary intensive care medicine specialist to a significant other at home: No Do you presently have visiting nurse or other home services: Yes ([employer] at home) Patient Tobacco Use Status: Current everyday Tobacco user Tobacco use type: Cigarette Cigarettes Per Day: 5 Years Smoked: (current smoker, onset 21yo, 1ppd x 51yrs, now 3-5cig/day - 40+PYH) Smoked in Last 30 Days: No e-Cigarette/Vaping Use: Currently Using Use of substances other than those prescribed or required for medical reasons: No Advance Directives: No Advance Directives Information Provided: Yes Do you have a plan to hurt others: No Plan service: No Current occupational status: disabled Meds Allergies Allergy/AdvReac Type Severity Reaction Status Date / Time hydrocodone [Vicodin] Allergy Unknown swelling Verified 10/05/24 13:11 ALL OVER Active Medications: Current Medications Acetaminophen (Acetaminophen 325 Mg Tablet) 650 mg PO Q6H PRN PRN Reason: Pain, Mild (Pain Scale 1-3), fever or headache Lactated Ringer's (Lr) 1,000 mls @ 100 mls/hr IVCONT .Q10H JOSE Sodium Chloride (0.9 % Sodium Chloride Flush 3 Ml Syringe) 3 ml IVFLUSH QSHIFT [facility] Home Medications ?Medication ?Instructions ?Recorded ?Confirmed ?Last Taken ?Type clonazepam 0.5 mg tablet 0.5 mg PO BID PRN Anxiety 08/19/20 08/25/24 Unknown History clonidine HCl 0.2 mg tablet 0.2 mg PO BEDTIME 08/19/20 08/25/24 Unknown History escitalopram oxalate 20 mg tablet 20 mg PO DAILY 08/19/20 08/25/24 Unknown History (Lexapro) metoprolol succinate 25 mg 25 mg PO DAILY 08/19/20 08/25/24 Unknown History tablet,extended release 24 hr acetaminophen 650 mg 650 mg PO Q8H PRN Pain 11/23/20 08/25/24 Unknown History tablet,extended release albuterol sulfate 90 mcg/actuation 90 mcg inhalation Q4H PRN 11/23/20 08/25/24 Unknown History aerosol inhaler Shortness Of Breath Or Wheezing nitroglycerin 0.4 mg sublingual 0.4 mg sublingual DAILY 11/23/20 08/25/24 Unknown History tablet Physical Exam Vital Signs and Narrative: Vital Signs: Last Vital Signs Temp 98.8 F 10/05/24 21:56 Pulse 88 10/05/24 21:56 Resp 16 10/05/24 21:56 BP 178/67 H 10/05/24 21:56 Pulse Ox 95 10/05/24 21:56 O2 Del Method Room Air 10/05/24 21:56 BMI result Body Mass Index 24.2 Constitutional - Awake and Alert, No apparent distress HEENT - PER, EOMI Lungs - S1S2, RRR, No murmurs. Lungs - Normal lung expansion, Normal respiratory effort, No respiratory distress, CTA bilaterally Abdomen - NT / ND; increased BS; No rebound or guarding Extremities - no calf tenderness bilaterally, no swelling Skin - Warm/Dry Neurological - Alert & oriented x1 Psychological - No agitation. Results Labs 10/05/24 13:33 10/05/24 13:33 Labs: Laboratory Results - last 24 hr 10/05/24 10/05/24 10/05/24 13:33 16:05 16:35 MCV 88.6 MCH 29.0 MCHC 32.7 RDW 13.4 Plt Count 199 MPV 9.4 Immature Gran % (Auto) 0.2 Neut % (Auto) 55.2 Lymph % (Auto) 34.6 Jackson % (Auto) 9.2 Eos % (Auto) 0.6 Baso % (Auto) 0.2 Lymph # (Auto) 2.8 Jackson # (Auto) 0.7 Eos # (Auto) 0.1 Baso # (Auto) 0.0 Abs Immat Gran (auto) 0.02 Absolute Neuts (auto) 4.4 Absolute Nucleated RBC 0.000 Nucleated RBC % (auto) 0.0 Anion Gap 14 Estim Creat Clear Calc 57.4 Estimated GFR > 60 Random Glucose 106 Lactic Acid 2.5 H* Lactic Acid F/U @ 2Hr 1.6 Calcium 9.3 Magnesium 2.2 Total Bilirubin 0.5 Direct Bilirubin 0.2 AST 22 ALT 11 Alkaline Phosphatase 81 Troponin I High Sens 2.9 Total Protein 6.7 Albumin 3.8 Lipase 19 Urine Color Yellow Urine Appearance Cloudy Urine pH 7.0 Ur Specific [place] >= 1.030 H Urine Protein 30 (1+) H Urine Glucose (UA) Negative Urine Ketones Trace Urine Blood Large (3+) H Urine Nitrite Negative Ur Leukocyte Esterase Small (1+) H Urine RBC >20 H Urine WBC 21-50 H Ur Squamous Epith Cells 0-2 Urine Bacteria 4+ Hyaline Casts 0-2 Influenza Type A (PCR) NEGATIVE Influenza Type B (PCR) NEGATIVE RSV RNA Qual (PCR) NEGATIVE SARS-CoV-2 RNA (RT-PCR) NEGATIVE Imaging Radiologist's Impressions: Impressions Abdomen/Pelvis CT 10/05/24 13:51 IMPRESSION: 1. There is new abnormal dilation of the bile ducts through the pancreatic head with a 9 mm common duct. Recommend right upper quadrant ultrasound. 2. The uterus is enlarged for age. Recommend pelvic ultrasound. 3. Sigmoid predominant diverticulosis without evidence of diverticulitis. 4. Nonobstructing left renal calculus. 5. Thick-walled duodenal bulb may represent duodenitis. Clinical correlation advised. Fleischner guidelines were followed. Electronically signed by: Robbie Mattson MD 10/05/2024 04:25 PM EST RP Abdomen Ultrasound 10/05/24 19:37 IMPRESSION: Normal-appearing gallbladder. Electronically signed by: Russ Alexander MD 10/05/2024 08:58 PM EST RP Assessment and Plan (1) Acute UTI: Status: Acute (2) Nausea & vomiting: Qualifiers: Vomiting type: unspecified Qualified Code(s): R11.2 - Nausea with vomiting, unspecified Status: Acute (3) Duodenitis: Status: Acute Plan Paula Willoughby is a 74 y/o woman admitted with. Intractable vomiting likely secondary to duodenitis. Admit to hospitalist service. NPO. Start treatment with Protonix 40 mg IV twice daily. Reglan 10 mg IV every 6 hours scheduled. IV fluids. UTI. Continue empiric IV antibiotic therapy with ceftriaxone. UC obtained -will follow results. Essential hypertension. Continue metoprolol when able. Hyperlipidemia. Continue statin when able. History of VTE. Continue Eliquis when able. Anxiety. Continue home meds when able. CAD/stroke. Continue aspirin, Eliquis and statin when able. History of breast CA. Continue raloxifene. DVT prophylaxis: Lisa SCDs Code status: Full Patient will need hospitalization for at least 2 midnights for intractable vomiting secondary to duodenitis treatment with IV fluids, antiemetics and PPI. Quality Stroke Does the patient have a stroke diagnosis?: No VTE Prior VTE?: No VTE Risk Level:: Medical - moderate - high VTE Device Contraindication: Treatment Not Indicated VTE Drug Contraindication: N/A - Med Ordered
[2024-10-05] MEDS: Pantoprazole Sodium 40 MG/10 ML VIAL IVPUSH (23:51)
[2024-10-05] MEDS: Lactated Ringers 1,000 ML 100 ML IVCONT (23:53)
[2024-10-06] VITALS (9 sets, daily range): BP systolic 104–171; BP diastolic 42–76; PULSE 88–102; RESP 15–18; TEMP 36.8–37.8; O2SAT 95–100; BMI 25.9
[2024-10-06] MEDS: Metoclopramide HCl 10 MG/2 ML VIAL IVPUSH ×3 (01:58→14:02)
--- NOTE | 2024-10-06 02:10 | PC.NURSE ---
pt had an episode of vomiting, this designer writer at bedside, clear emesis, MD aware. pt medicated per MAR
--- NOTE | 2024-10-06 03:29 | PC.NURSE ---
pt incont of urine, assist with washing, bed and gown changed, pt repositioned, purewick placed. pt now resting comfortably on R side.
--- NOTE | 2024-10-06 03:42 | PC.NURSE ---
med rec completed with daughter at bedside
--- NOTE | 2024-10-06 07:55 | PHA.MEDREC ---
Pharmacy Consult ? Medication Reconciliation Pharmacy has reviewed the medication reconciliation done by RN
--- NOTE | 2024-10-06 09:28 | HO.PM.IMPN ---
Subjective Subjective Date of Service: 10/06/24 Interval History: seen and examined, no specific complaint wasn't saying much and no further report Review of Systems ROS unable to be obtained due to dementia Physical Exam Vital Signs: Vital Signs: Last Vital Signs Temp 98.6 F 10/06/24 06:17 Pulse 98 10/06/24 06:17 Resp 18 10/06/24 06:17 BP 155/64 H 10/06/24 06:17 Pulse Ox 100 10/06/24 06:17 O2 Del Method Room Air 10/06/24 06:17 BMI result Body Mass Index 24.2 Objective Data Active Medications Acetaminophen (Acetaminophen Supp 650 Mg Supp.Rect) 650 mg RI Q6H PRN PRN Reason: Fever Albuterol Sulfate (Albuterol Sulfate 90 Mcg 8 Gm Inhaler) 1 puff INHALE Q4H PRN PRN Reason: Shortness Of Breath Or Wheezing Apixaban (Apixaban 5 Mg Tablet) 5 mg PO BID [facility] Atorvastatin Calcium (Atorvastatin Calcium 80 Mg Tablet) 80 mg PO BEDTIME JOSE Clonazepam (Clonazepam 0.5 Mg Tablet) 0.5 mg PO BID PRN PRN Reason: Anxiety Clonidine HCl (Clonidine Hcl 0.2 Mg Tablet) 0.2 mg PO BEDTIME [facility]; Protocol Cyanocobalamin (Cyanocobalamin (Vitamin B-12) 1,000 Mcg Tablet) 1,000 mcg PO DAILY [facility] Escitalopram Oxalate (Escitalopram Oxalate 20 Mg Tablet) 20 mg PO DAILY [facility] Lactated Ringer's (Lr) 1,000 mls @ 100 mls/hr IVCONT .Q10H [facility] Last Admin: 10/05/24 23:53 Dose: 100 mls/hr Documented By: DEVIN Metoclopramide HCl (Metoclopramide Hcl 10 Mg/2 Ml Vial) 10 mg IVPUSH Q6H [facility] Last Admin: 10/06/24 01:58 Dose: 10 mg Documented By: DEVIN Metoprolol Succinate (Metoprolol Succinate Er 25 Mg Tab.Er.24h) 25 mg PO DAILY [facility]; Protocol Non-Formulary Medication (Raloxifene) 60 mg PO DAILY [facility] Pantoprazole Sodium (Pantoprazole Sodium 40 Mg/10 Ml Vial) 40 mg IVPUSH BID@0630,1630 [facility] Last Admin: 10/05/24 23:51 Dose: 40 mg Documented By: DEVIN Sodium Chloride (0.9 % Sodium Chloride Flush 3 Ml Syringe) 3 ml IVFLUSH QSHIFT [facility] Last Admin: 10/06/24 08:55 Dose: Not Given Documented By: JESE Non-Admin Reason: IV Running Labs 10/05/24 13:33 10/05/24 13:33 Labs: Laboratory Results - last 24 hr 10/05/24 10/05/24 10/05/24 13:33 16:05 16:35 MCV 88.6 MCH 29.0 MCHC 32.7 RDW 13.4 Plt Count 199 MPV 9.4 Immature Gran % (Auto) 0.2 Neut % (Auto) 55.2 Lymph % (Auto) 34.6 La[place] % (Auto) 9.2 Eos % (Auto) 0.6 Baso % (Auto) 0.2 Lymph # (Auto) 2.8 [place] # (Auto) 0.7 Eos # (Auto) 0.1 Baso # (Auto) 0.0 Abs Immat Gran (auto) 0.02 Absolute Neuts (auto) 4.4 Absolute Nucleated RBC 0.000 Nucleated RBC % (auto) 0.0 Anion Gap 14 Estim Creat Clear Calc 57.4 Estimated GFR > 60 Random Glucose 106 Lactic Acid 2.5 H* Lactic Acid F/U @ 2Hr 1.6 Calcium 9.3 Magnesium 2.2 Total Bilirubin 0.5 Direct Bilirubin 0.2 AST 22 ALT 11 Alkaline Phosphatase 81 Troponin I High Sens 2.9 Total Protein 6.7 Albumin 3.8 Lipase 19 Urine Color Yellow Urine Appearance Cloudy Urine pH 7.0 Ur Specific [place] >= 1.030 H Urine Protein 30 (1+) H Urine Glucose (UA) Negative Urine Ketones Trace Urine Blood Large (3+) H Urine Nitrite Negative Ur Leukocyte Esterase Small (1+) H Urine RBC >20 H Urine WBC 21-50 H Ur Squamous Epith Cells 0-2 Urine Bacteria 4+ Hyaline Casts 0-2 Influenza Type A (PCR) NEGATIVE Influenza Type B (PCR) NEGATIVE RSV RNA Qual (PCR) NEGATIVE SARS-CoV-2 RNA (RT-PCR) NEGATIVE Microbiology Microbiology Results: Microbiology 10/05/24 16:25 Urine Culture - Preliminary Urine clean catch - Clean Catch Midstream Culture in progress. Assessment and Plan (1) VTE (venous thromboembolism): Status: Inactive Plan 74/F with HTN, DVT, anxiety, recurrent UTI here Intractable vomiting likely secondary to duodenitis and UTI US normal gallblader. CT shows possible duodeniti -improving -IVF -IV PPI -GI consult UTI -continue Ceftriaxone -follow cultures Essential hypertension -resume metoprolol Hyperlipidemia. -resume statin History of VTE, no sings of bleeding -resume eliquis Anxiety. resume home meds CAD/stroke. Continue aspirin, Eliquis and statin History of breast CA. Continue raloxifene. DVT prophylaxis: Lisa SCDs need for inpt: IV PPI for duodenitis, gastritis Quality Stroke Does the patient have a stroke diagnosis?: No VTE Prior VTE?: No VTE Risk Level:: Medical - moderate - high VTE Device Contraindication: Treatment Not Indicated VTE Drug Contraindication: N/A - Med Ordered
[2024-10-06] MEDS: Cyanocobalamin (Vitamin B-12) 1,000 MCG TABLET 1000 MCG PO (10:25)
[2024-10-06] MEDS: Apixaban 5 MG TABLET PO ×2 (10:25→21:46)
[2024-10-06] MEDS: Metoprolol Succinate ER 25 MG TAB.ER.24H PO (10:25)
[2024-10-06] MEDS: Lactated Ringers 1,000 ML 100 ML IVCONT ×2 (11:23→22:36)
[2024-10-06] MEDS: Escitalopram Oxalate 20 MG TABLET PO (11:23)
--- NOTE | 2024-10-06 11:31 | PC.NURSE ---
delay in medication administration d/t medication not being readily available in pyxis - medication administered per provider order. new bag of LR infusing @ 100mls/hr at this time. pt continues to rest comfortably in no apparent distress. has no complaints. denies pain. waiting for bed assignment at this time. bed alarm turned of for safety precautions. plan of care ongoing. call ricks placed within reach.
[2024-10-06] MEDS: clonazePAM 0.5 MG TABLET PO (14:02)
--- NOTE | 2024-10-06 14:06 | PC.NURSE ---
pt becoming seemingly anxious/tremulous. prn medication utilized. effectiveness pending. family bedside for support. plan of care ongoing.
[2024-10-06] MEDS: Pantoprazole Sodium 40 MG/10 ML VIAL IVPUSH (17:13)
--- NOTE | 2024-10-06 17:24 | PC.NURSE ---
pt is a high fall risk/attempting to get out of bed w/o assistance. pt states she is going home. pt easy to redirect. repositioned in bed to promote comfort. provided w/ warm blankets. bed alarm on for safety precautions. plan of care ongoing.
--- NOTE | 2024-10-06 18:53 | PM.EVENT ---
Event Note Date of Service: 10/06/24 Event Note: GI Consult-Full note dictated-History from her RN, the EMR, and her daughter, Eugenie, over the phone. 74yo female with dementia presenting to the ER for evaluation of some reported breathing issues and the development of subsequent N/V after arrival in the ER. Prior to yesterday there were no reported chronic GI symptoms. There has been no report of bleeding or abdominal pain. She has had no vomiting over the course of the day, although she is not taking much in by mouth as yet. Her CT describes probable duodenitis and a distended stomach, but without any sign of bowel obstruction or obvious neoplasm. Diff dx: Duodenitis/Duodenal ulcer with some component of gastric outlet obstruction. Doubt neoplasm. Rec: Continue IV PPI. D/C Reglan. Full liquids as tolerated. Advance in 24 to 48 hours as tolerated. She may need an upper endoscopy if she continues to have N/V and can't tolerate po's. D/W her daughter, Eugenie, and she is comfortable with the plan. Would need permission for any procedures from her HCP. Thanks. Time Spent With Patient Time: Total time managing care of this patient today ____ minutes.
--- NOTE | 2024-10-06 19:37 | PC.NURSE ---
This RN assumed pt care @ 1900. Pt sitting in bed, talking with family at bedside Pt currently has LR running, 1930 LR will be given late once current bag is infused. Plan of care ongoing.
--- NOTE | 2024-10-06 19:59 | PC.NURSE ---
Pts IV secured with gauze as pts daughter reports pt is beginning to pull on IV. Plan of care ongoing.
[2024-10-06] MEDS: cloNIDine HCL 0.2 MG TABLET PO (21:46)
[2024-10-06] MEDS: Atorvastatin Calcium 80 MG TABLET PO (21:46)
--- NOTE | 2024-10-06 21:50 | PC.NURSE ---
Pt medicated per [facility] Plan of care ongoing.
[2024-10-07] MEDS: QUEtiapine Fumarate 25 MG TABLET 12.5 MG PO (00:53)
--- NOTE | 2024-10-07 02:01 | CONS_ITS ---
DATE OF SERVICE: 10/06/2024 REASON FOR CONSULTATION: Vomiting and abnormal CT scan of upper GI tract. HISTORY OF PRESENT ILLNESS: This has been obtained from the patient's daughter, Eugenie, her nurse, and the medical record. The patient has dementia and cannot really give any type of history. The patient is a 74-year-old female with multiple medical problems, who was brought into the ER yesterday with reported shortness of breath, but developed subsequent nausea and vomiting. There is no report of any hematemesis nor coffee-ground emesis. Prior to yesterday, she was not having any particular GI complaints according to her daughter, Eugenie. She is on chronic Eliquis, but there is no reported use of chronic aspirin, NSAIDs, tobacco, nor alcohol at the present time. Her workup in the ER including a CT scan of the abdomen and describes some thickening in the duodenum with some distention of the stomach, but without any sign of more distal bowel obstruction. There is no reported history of previous peptic ulcer disease. Since admission to her medical floor, there has been no report of vomiting over the course of today, although she has not really taken much in the way of any oral intake. She has been on a clear liquid diet. MEDICATIONS: Her present medications include albuterol inhaler p.r.n., Eliquis, atorvastatin, clonazepam p.r.n., clonidine, vitamin B12, Lexapro, metoprolol, pantoprazole, metoclopramide, and Seroquel. PAST MEDICAL HISTORY: Breast cancer with a previous right mastectomy, cerebrovascular disease with previous stroke, coronary artery disease with previous stent placement, dementia, hypertension, hyperlipidemia, DVT, colonoscopy with pr in 2022 with finding of tubular adenoma that were removed, kidney stones. She also has a history of a pulmonary embolus, COPD, and arthritis. PAST SOCIAL HISTORY: She has her own apartment, but is cared for by family members [id number]. She is a former smoker. She does not use any alcohol. FAMILY HISTORY: Noncontributory. REVIEW OF SYSTEMS: CONSTITUTIONAL: This has been obtained from the daughter and is somewhat limited, but prior to yesterday, she was not having any vomiting or difficulty eating. CARDIAC: No reported chest pain. PULMONARY: No coughing nor hemoptysis. GI: As above. URINARY: No reported dysuria. No hematuria. NEUROLOGIC: No reported headaches or seizures. PHYSICAL EXAMINATION: GENERAL: The patient is a pleasant alert, comfortable-appearing female, lying in bed. She is breathing comfortably in a supine position. She denies any pain. HEENT: Anicteric sclerae. Moist mucous membranes. NECK: Supple. CHEST: Clear. CARDIAC: Normal S1, S2. ABDOMEN: Soft, nondistended, nontender without palpable mass. LABORATORY DATA: Abdominal ultrasound limited to the right upper quadrant describes a normal-appearing gallbladder and a common bile duct of [address] scan describes a duodenal diverticulum, no sign of any liver mass, no sign of any pancreatitis or pancreatic mass, normal spleen, and a GI tract with a distended stomach with an air-fluid level with an associated thick-walled duodenal bulb. There was no small bowel obstruction nor any sign of colonic disease. There was no intraabdominal lymphadenopathy. She had a normal CBC, normal chemistries, renal function, and liver profile. Normal lipase. IMPRESSION: Given the patient's presentation and abnormal CT scan, I do suspect she may have had some component of her vomiting in relation to some degree of gastric outlet obstruction given the air fluid level seen on the CT scan and some abnormality in the duodenal area. As such, I would continue IV PPI to treat any component of underlying peptic ulcer disease. The other thing to be concerned about would be possible neoplasm in that area of the duodenum. Her abdominal exam is presently benign and she has had no further vomiting, however, she has not really been taking any oral intake. At this point, I will continue with her IV PPI, but stop her metoclopramide. I would advance her to a full liquid diet and observe things. If she tolerates that over the next 24 to 48 hours, her diet can be advanced and then we can continue her PPI under the presumption that we are treating some underlying acid peptic disease causing her symptoms. However, if her symptoms persist and/or recur, she may need upper endoscopy for definitive evaluation. She should continue to avoid all aspirin and NSAIDs. If she does need endoscopy, she would need to be off her Eliquis for 2 to 3 days. This has all been discussed with her daughter, Eugenie, in detail and she is comfortable with the plan. If she does need endoscopy, permission would need to be obtained from her healthcare proxy. Thank you for the consultation. MD SOILA Roque/TONY MACE: 10/06/2024 19:28:02 / [id number]
[2024-10-07] MEDS: clonazePAM 0.5 MG TABLET PO (02:39)
[2024-10-07 03:41] VITALS: BP 117/63; PULSE 106; RESP 16; TEMP 36.3; O2SAT 97
[2024-10-07] MEDS: Pantoprazole Sodium 40 MG/10 ML VIAL IVPUSH ×2 (05:30→17:05)
[2024-10-07 07:59] VITALS: BP 151/69; PULSE 89; RESP 18; TEMP 36.9; O2SAT 97
[2024-10-07] MEDS: Lactated Ringers 1,000 ML 100 ML IVCONT ×2 (08:38→18:53)
[2024-10-07] MEDS: Metoprolol Succinate ER 25 MG TAB.ER.24H PO (09:10)
[2024-10-07] MEDS: Escitalopram Oxalate 20 MG TABLET PO (09:10)
[2024-10-07] MEDS: Apixaban 5 MG TABLET PO ×2 (09:10→21:26)
[2024-10-07] MEDS: Cyanocobalamin (Vitamin B-12) 1,000 MCG TABLET 1000 MCG PO (09:10)
[2024-10-07] MEDS: cefTRIAXone sodium 1 GM VIAL IVPUSH (13:18)
[2024-10-07 15:23] VITALS: BP 130/60; PULSE 101; RESP 18; TEMP 36.8; O2SAT 96
--- NOTE | 2024-10-07 16:23 | P.PNIM_ITS ---
Subjective Subjective Date of Service: 10/07/24 Interval History: According to son, she's doing much better Physical Exam 2 Vital Signs: Vital Signs: Last Vital Signs Temp 98.2 F 10/07/24 15:23 Pulse 101 H 10/07/24 15:23 Resp 18 10/07/24 15:23 BP 130/60 10/07/24 15:23 Pulse Ox 96 10/07/24 15:23 O2 Del Method Room Air 10/07/24 15:23 BMI result Body Mass Index 25.9 General: AO X 1, no acute distress Resp: CTA bilateral CVS: S1,S2,RRR GI: +BS, NT, no distention Skin: No rash Neuro: motor grossly intact Psych: appropriate affect Objective Data Active Medications Acetaminophen (Acetaminophen Supp 650 Mg Supp.Rect) 650 mg TN Q6H PRN PRN Reason: Fever Albuterol Sulfate (Albuterol Sulfate 90 Mcg 8 Gm Inhaler) 1 puff INHALE Q4H PRN PRN Reason: Shortness Of Breath Or Wheezing Apixaban (Apixaban 5 Mg Tablet) 5 mg PO BID COUNT INCLUDES THE [facility] Last Admin: 10/07/24 09:10 Dose: 5 mg Documented By: JOE Atorvastatin Calcium (Atorvastatin Calcium 80 Mg Tablet) 80 mg PO BEDTIME JOSE Last Admin: 10/06/24 21:46 Dose: 80 mg Documented By: HARRISON Ceftriaxone Sodium (Ceftriaxone Sodium 1 Gm Vial) 1 gm IVPUSH Q24H JOSE Last Admin: 10/07/24 13:18 Dose: 1 gm Documented By: JOE Clonazepam (Clonazepam 0.5 Mg Tablet) 0.5 mg PO BID PRN PRN Reason: Anxiety Last Admin: 10/07/24 02:39 Dose: 0.5 mg Documented By: DEV Clonidine HCl (Clonidine Hcl 0.2 Mg Tablet) 0.2 mg PO BEDTIME COUNT INCLUDES THE [facility]; Protocol Last Admin: 10/06/24 21:46 Dose: 0.2 mg Documented By: HARRISON Cyanocobalamin (Cyanocobalamin (Vitamin B-12) 1,000 Mcg Tablet) 1,000 mcg PO DAILY COUNT INCLUDES THE [facility] Last Admin: 10/07/24 09:10 Dose: 1,000 mcg Documented By: JOE Escitalopram Oxalate (Escitalopram Oxalate 20 Mg Tablet) 20 mg PO DAILY COUNT INCLUDES THE [facility] Last Admin: 10/07/24 09:10 Dose: 20 mg Documented By: JOE Lactated Ringer's (Lr) 1,000 mls @ 100 mls/hr IVCONT .Q10H COUNT INCLUDES THE [facility] Last Admin: 10/07/24 08:38 Dose: 100 mls/hr Documented By: JOE Metoprolol Succinate (Metoprolol Succinate Er 25 Mg Tab.Er.24h) 25 mg PO DAILY COUNT INCLUDES THE [facility]; Protocol Last Admin: 10/07/24 09:10 Dose: 25 mg Documented By: JOE Pantoprazole Sodium (Pantoprazole Sodium 40 Mg/10 Ml Vial) 40 mg IVPUSH BID@0630,1630 COUNT INCLUDES THE [facility] Last Admin: 10/07/24 05:30 Dose: 40 mg Documented By: DEV Quetiapine Fumarate (Quetiapine Fumarate 25 Mg Tablet) 12.5 mg PO Q6H PRN PRN Reason: anxiety/restlessness Last Admin: 10/07/24 00:53 Dose: 12.5 mg Documented By: DEV Sodium Chloride (0.9 % Sodium Chloride Flush 3 Ml Syringe) 3 ml IVFLUSH QSHIFT COUNT INCLUDES THE [facility] Last Admin: 10/07/24 09:08 Dose: Not Given Documented By: JOE Non-Admin Reason: IV Running Labs 10/05/24 13:33 10/05/24 13:33 Microbiology Microbiology Results: Microbiology 10/05/24 16:25 Urine Culture - Preliminary Urine clean catch - Clean Catch Midstream Gram negative britta Assessment and Plan (1) VTE (venous thromboembolism): Status: Inactive Plan 74/F with HTN, DVT, anxiety, recurrent UTI here Intractable vomiting likely secondary to duodenitis and UTI US normal gallblader. CT shows possible duodeniti -improving -IVF -IV PPI -GI consult noted, advanc diet UTI -continue Ceftriaxone -culture growing GNR Essential hypertension -resume metoprolol Hyperlipidemia. -resume statin History of VTE, no sings of bleeding -resume eliquis Anxiety. resume home meds CAD/stroke. Continue aspirin, Eliquis and statin History of breast CA. Continue raloxifene. DVT prophylaxis: Eliquis, SCDs need for inpt: IV PPI for duodenitis, gastritis Quality Stroke Does the patient have a stroke diagnosis?: No VTE Prior VTE?: No VTE Risk Level:: Medical - moderate - high VTE Device Contraindication: Treatment Not Indicated VTE Drug Contraindication: N/A - Med Ordered
[2024-10-07 19:49] VITALS: BP 159/85; PULSE 76; RESP 18; TEMP 36.7; O2SAT 96
[2024-10-07] MEDS: cloNIDine HCL 0.2 MG TABLET PO (21:26)
[2024-10-07] MEDS: Atorvastatin Calcium 80 MG TABLET PO (21:26)
[2024-10-08 03:34] VITALS: BP 157/74; PULSE 73; RESP 16; TEMP 36.6; O2SAT 97
[2024-10-08] MEDS: Pantoprazole Sodium 40 MG/10 ML VIAL IVPUSH (05:44)
[2024-10-08 08:00] VITALS: BP 154/64; PULSE 74; RESP 17; TEMP 36.6; O2SAT 99
[2024-10-08] MEDS: Cyanocobalamin (Vitamin B-12) 1,000 MCG TABLET 1000 MCG PO (08:55)
[2024-10-08] MEDS: Escitalopram Oxalate 20 MG TABLET PO (08:55)
[2024-10-08] MEDS: Metoprolol Succinate ER 25 MG TAB.ER.24H PO (08:55)
[2024-10-08] MEDS: Apixaban 5 MG TABLET PO (08:55)
[2024-10-08] MEDS: 0.9 % Sodium Chloride Flush 3 ML SYRINGE IVFLUSH (09:00)
--- NOTE | 2024-10-08 10:22 | PM.DS ---
DS: Providers Provider Date of admission: 10/05/24 23:23 Primary care physician: Timmy Silva MD Consults: 10/06/24 09:27 Consult to Gastroenterology Routine Consulting Provider: Ramiro Lincoln Reason for consultation: N/V, duodenitis Has provider been notified: No DS: Diagnosis Discharge Diagnosis (1) VTE (venous thromboembolism): Status: Inactive DS: Summary Hospital Course Hospital Course: admission hpi Chief Complaint: Vomiting Paula Willoughby is a 74 years old woman with past medical history significant for dementia, stroke with right hemiparesis, UTIs, essential hypertension, hyperlipidemia, VTE on Eliquis, anxiety, CAD and breast cancer was brought to the emergency department due to multiple events of vomiting that started today around the afternoon. Due to patient's dementia it is very fecal to assess any symptoms. Daughter who was at bedside and caregiver did not noted any abdominal bloating, fever or diarrhea. In the ED, she was found to have stable vital signs. Last blood pressure 179/67. Blood workup showed normal CBC. There are no significant electrolyte imbalances. Creatinine 0.79 and BUN 10. Lactic acid was initially 2.5, most recent 1.6. LFTs and lipase are normal. Urinalysis consistent with urinary tract infection. Viral testing is negative for COVID-19, influenza and RSV. Abdomen pelvis CT scan showed new abnormal dilatation of bile ducts through the pancreatic head with 9 mm common duct, enlarged uterus, sigmoid diverticulosis without diverticulitis, nonobstructive left renal calculi and thickening of the duodenal bulb that may represent duodenitis. Abdomen US showed no CBD dilatation. ED tx: Multiple doses of Zofran, Reglan 10 mg IV, ceftriaxone 1 g IV, NS 2 L bolus, Tylenol 1 g IV, morphine 2 mg IV Hospital course: The patient presented with nausea and vomiting and was diagnosed with a urinary tract infection (UTI). A CT scan of the abdomen and pelvis also suggested possible duodenitis. The UTI was treated with ceftriaxone, resulting in significant improvement. Urine culture revealed growth of E. coli sensitive to all tested agents. The patient has been on ceftriaxone during hospitalization and will be discharged with cefuroxime for continued treatment. Gastroenterology was consulted regarding the possible duodenitis. Given the patient's improved symptoms and absence of anemia, an EGD is deferred at this time. The patient will be started on Prilosec for symptomatic management. Her nausea and vomiting have resolved and she's tolerating regular diet. Time Attestation Discharge Coordination Time (in mins): 35 Quality: Safe Use of Opioids Does Pt have an Active Cancer Diagnosis on the Problem List?: No Physical Exam Vital Signs: Vital Signs: Last Vital Signs Temp 97.9 F 10/08/24 08:00 Pulse 74 10/08/24 08:00 Resp 17 10/08/24 08:00 BP 154/64 H 10/08/24 08:00 Pulse Ox 99 10/08/24 08:00 O2 Del Method Room Air 10/08/24 08:00 BMI result Body Mass Index 25.9 Discharge Plan Discharge Anticipated Discharge Date/Time: 10/08/24 10:17 Patient Disposition: Home, Self-Care Discharge Diagnosis: UTI, duodenitis, nausea vomiting Referrals: Timmy Silva MD [Primary Care Provider] - 1 Week Discharge Medications: New cefuroxime axetil 250 mg tablet 250 mg PO BID 7 Days Qty: 14 0RF ondansetron 4 mg tablet,disintegrating 4 mg PO Q6-8H PRN (Reason: nausea and vomiting) Qty: 7 0RF omeprazole 20 mg capsule,delayed release(DR/EC) 20 mg PO BID Qty: 180 0RF Continued cyanocobalamin (vitamin B-12) 1,000 mcg Lozenge 1,000 mcg SUBLINGUAL DAILY Qty: 90 4RF Eliquis 5 mg Tablet 5 mg PO BID Qty: 180 4RF raloxifene 60 mg Tablet 60 mg PO DAILY Qty: 90 4RF atorvastatin 80 mg tablet 80 mg PO BEDTIME Qty: 90 0RF escitalopram oxalate [Lexapro] 20 mg tablet 20 mg PO DAILY clonidine HCl 0.2 mg tablet 0.2 mg PO BEDTIME clonazepam 0.5 mg tablet 0.5 mg PO BID PRN (Reason: Anxiety) metoprolol succinate 25 mg tablet extended release 24 hr 25 mg PO DAILY albuterol sulfate 90 mcg/actuation HFA aerosol inhaler 90 mcg inhalation Q4H PRN (Reason: Shortness Of Breath Or Wheezing) acetaminophen 650 mg tablet extended release 650 mg PO Q8H PRN (Reason: Pain) Discharge Orders: Discharge Order (Routine); Ordered 10/08/24 Ordered By: Grant Benites Diet: Advance to usual diet Activity on Discharge: As tolerated Stand Alone Forms: Patient Portal Discharge page Print Language: Hungarian Care Plan Goals: Recovery from UTI nausea vomiting Health Concerns: UTI Duodenitis Nausea vomiting Plan of Treatment: Take cefuroxime as directed for UTI Take Zofran for nausea vomiting Take Prilosec for duodenitis Follow-up with your primary care physician in a week Assessment: see above Patient Instructions: Acute Nausea and Vomiting (ED), Urinary Tract Infection in Older Adults (ED)
--- NOTE | 2024-10-08 10:50 | MHC.CM.PN ---
Addendum entered by Mirta Reyez RN 10/08/24 11:28: Per RN, patient has not gotten out of bed and is declining to attempt ambulation at this time. CM discussed w/ daughter, daughter feels patient would be more comfortable attempting at home, does not feel PT eval is necessary, and understands patient will likely be weaker than baseline. Original Note: CM assessment completed w/ daughter/HCP Debbie via telephone. Patient w/ dx dementia. IMM delivered. Lives in an apartment 28/05 care - [address] [employer] day hours/week, son stays overnights and daughters fill in any other hours needed. At baseline, ambulates a few steps w/ walker (from w/c to recliner, w/c to toilet, etc), and uses w/c for longer distances. PCP Timmy Silva MD HCP on file and verified. DP: Per , medically cleared for dc home w/ resumption of [employer] services and family support. BLS transport scheduled for 1pm.
[2024-10-08 15:15] VITALS: BP 138/59; PULSE 71; RESP 18; TEMP 37.1; O2SAT 100
== END 2024-10-08 15:37 | disposition home or self-care (01) | DRG 690 ==
LOC: HO.ED 22:19 → HO.EDOVER 23:28 → HO.S3 10-06 21:12
PROVIDERS: Emergency Medicine; Admitting Provider Internal Medicine; Emergency Provider Internal Medicine; PCP Internal Medicine; Visit Provider Internal Medicine
DX: N39.0 Urinary tract infection, site not specified (principal); I69.351 Hemiplegia and hemiparesis following cerebral infarction affecting right dominant side; K31.1 Adult hypertrophic pyloric stenosis; K29.80 Duodenitis without bleeding; I25.10 Atherosclerotic heart disease of native coronary artery without angina pectoris; C50.911 Malignant neoplasm of unspecified site of right female breast; F03.C0 Unspecified dementia, severe, without behavioral disturbance, psychotic disturbance, mood disturbance, and anxiety; F41.9 Anxiety disorder, unspecified; I10 Essential (primary) hypertension; E78.5 Hyperlipidemia, unspecified; B96.20 Unspecified Escherichia coli [E. coli] as the cause of diseases classified elsewhere; F17.290 Nicotine dependence, other tobacco product, uncomplicated; Z95.5 Presence of coronary angioplasty implant and graft; Z86.711 Personal history of pulmonary embolism; Z86.718 Personal history of other venous thrombosis and embolism; Z20.822 Contact with and (suspected) exposure to COVID-19; Z71.6 Tobacco abuse counseling; Z79.01 Long term (current) use of anticoagulants; Z79.810 Long term (current) use of selective estrogen receptor modulators (SERMs); Z79.899 Other long term (current) drug therapy
CPT/HCPCS: 0241U; 36415; 74177; 76705; 80048; 80076; 81001; 83605; 83690; 83735; 84484; 85025; 87086; 87088; 87186; 93005; 99285; J0131; J0696; J1200; J2270; J2405; J2470; J2765; J7120; Q9967

== ENCOUNTER → 2024-10-05 13:13 | Outpatient (BNV) | payer MEDICARE, MEDICAID, SELFPAY | PROVIDERS: Admitting Provider Internal Medicine; Emergency Provider Internal Medicine; PCP Internal Medicine; Visit Provider Internal Medicine Cardiovascular Disease | DX: R00.1 Bradycardia, unspecified (principal); R94.31 Abnormal electrocardiogram [ECG] [EKG] | CPT/HCPCS: 93010 ==

== ENCOUNTER → 2024-10-05 23:23 | Outpatient (BNV) | payer MEDICARE, MEDICAID, SELFPAY | PROVIDERS: Admitting Provider Internal Medicine; Emergency Provider Internal Medicine; PCP Internal Medicine; Visit Provider Internal Medicine | DX: I82.90 Acute embolism and thrombosis of unspecified vein (principal) | CPT/HCPCS: 99222; 99232 ==

== ENCOUNTER 2024-11-03 12:28 | Emergency (ER) | payer MEDICARE, MEDICAID, SELFPAY ==
--- NOTE | ~2024-11-03 | CT_ITS ---
EXAMINATION: CT ABDOMEN AND PELVIS WITH CONTRAST CLINICAL INFORMATION: Abdominal pain COMPARISON: CT abdomen pelvis 10/05/2024. And CT 01/09/2016 TECHNIQUE: Multidetector volumetric images were obtained from the superior aspect of the liver through the pubic symphysis following administration 85 mL of Omnipaque 350 intravenous contrast. Sagittal and coronal reformatted images were obtained on the technologist's workstation. Oral contrast: No This CT examination was performed using dose optimization techniques as appropriate, variously including the following: *Automated exposure control *Adjustment of mA and/or kV according to patient size (this includes techniques or standardized protocols for targeted exams where dose is matched to indication/reason for exam; i.e. extremities or head) *Use of iterative reconstruction technique DLP: 752 mGy-cm FINDINGS: LUNG BASES: The visualized lung bases are unremarkable. There is mild coronary artery calcifications. No pericardial or pleural effusion seen. LIVER, GALLBLADDER, AND BILIARY TREE: The liver is normal in size, shape, and attenuation. No focal hepatic lesion seen. There is mild prominence of intrahepatic duct, stable. The gallbladder is unremarkable with no evidence of radiopaque gallstones, gallbladder wall thickening, or obvious pericholecystic inflammatory changes. PANCREAS: Unremarkable. SPLEEN: Unremarkable. ADRENAL GLANDS: Unremarkable. KIDNEYS AND URETERS: The kidneys are normal in size, shape, and attenuation. There are bilateral nonenhancing renal cysts. The largest cyst mid pole left kidney measures 2.8 cm and exophytic lower pole cyst measures 5 cm. There is 5 mm nonobstructive radiopaque calculi lower pole left kidney, stable. No caliectasis or hydronephrosis seen. BLADDER: Unremarkable. GASTROINTESTINAL TRACT: There is scattered gas, diverticuli and stool in colon without distention. The small bowel loops are normal caliber. Appendix is normal caliber. No inflammatory process, free air or free fluid seen. The stomach is nondistended. ABDOMINAL WALL: No significant hernia is appreciated. LYMPH NODES: Normal. VASCULAR: Mild aneurysmal dilatation of mid abdominal aorta measuring 2.5 x 2.6 cm on axial slice 36/3. PELVIC VISCERA: The uterus is anteverted reported with no focal lesion seen. No adnexal mass. There is no free fluid. No abnormal pelvic or inguinal lymph nodes.. OSSEOUS STRUCTURES: Mild L5 S1-S1 degenerative disc changes with vacuum disc was noted. Mild spurring. Deformity L1 vertebra is stable CT/CT abdomen pelvis w IV con IMPRESSION: No acute intraabdominal process seen. Mild colonic diverticulosis without diverticulitis. Mild constipation. Normal appendix. Nonobstructive radiopaque calculi left kidney lower pole. There are bilateral renal cysts. These are stable to last CT 10/05/2024 08/24/2016 exam. Stable abdominal aortic aneurysm. Fleischner guidelines were followed. Electronically signed by: Joseph Luke MD 11/03/2024 04:25 PM EST RP
--- NOTE | 2024-11-03 12:45 | ECG_ITS ---
Test Reason : ABD PAIN Blood Pressure : / mmHG Vent. Rate : 088 BPM Atrial Rate : 088 BPM P-R Int : 124 ms QRS Dur : 076 ms QT Int : 378 ms P-R-T Axes : 043 045 024 degrees QTc Int : 457 ms Normal sinus rhythm Normal ECG When compared with ECG of 05-OCT-2024 13:35, Vent. rate has increased BY 37 BPM QT has lengthened Referred By: Osvaldo Katz Electronically Signed By:SANJAY RAMAN MD
[2024-11-03 12:51] VITALS: BP 95/64; PULSE 91; RESP 18; TEMP 36.4; O2SAT 100; BMI 24.8
--- OUTSIDE RECORDS SUMMARY | 2024-11-03 13:08 | XMS_ITS | Clinical Summary ---
Author Organization Unknown Care Team Providers [facility] Coordinator Name Role Phone VAZQUEZ PADGETT MD, SULAIMAN Unavailable Unav ailable MARGARETTE RN, PB Unavailable Unavailab lito TOLBERT CHEMIST STEROIDS, ROSE Unavailable Shani vailable CASTANO PT, ASHLEY Unavailable Unavailable ANNA SENIOR C SOFTWARE DEVELOPER, CHI Unavailable Unavailable SPAFFORD OT, JUAN Unavailable Unavailable CONDINO YAMILA/JOSÉ, ROCKY Unavailable Unav ailable DU DESIREEIS ST, SELENA Unavailable Unavailable Payers Payer Name Policy Type Policy Number Effective Date Expira tion Date MEDICARE.NGS.PDGM [id number] Problems Condition Name Condition Details Condition Category Status Onset Date Resolution Date Last Treatment Date Treating Clinician Comments HEMIPLGA FOLLOWING CEREBRAL INFRC AFF RIGHT DOMINANT SIDE Active 03-23 00:00: 00 OTHER SEQUELAE OF CEREBRAL INFARCTION Active 03-23 00:00: 00 OTHER VISUAL DISTURBANCES Active 03-23 00:00: 00 URINARY TRACT INFECTION, SITE NOT SPECIFIED Active 03-23 00:00: 00 ESSENTIAL (PRIMARY) HYPERTENSION Active 03-23 00:00: 00 ATHSCL HEART DISEASE OF [place] CORONARY ARTERY W/O ANG PCTRS Active 03-23 00:00: 00 OLD MYOCARDIAL INFARCTION Active - 00:00: 00 HYPERLIPIDEM IA, UNSPECIFIED Active 03-23 00:00: 00 DEPRESSION, UNSPECIFIED Active 03-23 00:00: 00 AGE-RELATED OSTEOPOROSIS W/O CURRENT PATHOLOGICAL FRACTURE Active 03-23 00:00: 00 STRICTURE OF ARTERY Active 03-23 00:00: 00 OTH SYMPTOMS AND SIGNS W COGNITIVE FUNCTIONS AND AWARENESS Active 03-23 00:00: 00 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 Active 03-23 00:00: 00 PRESENCE OF CORONARY ANGIOPLASTY IMPLANT AND GRAFT Active 11-05 00:00: 00 PERSONAL HISTORY OF MALIGNANT NEOPLASM OF BREAST Active 11-05 00:00: 00 ACQUIRED ABSENCE OF RIGHT BREAST AND NIPPLE Active 11-05 00:00: 00 PERSONAL HISTORY OF MALIGNANT NEOPLASM OF LARGE INTESTINE Active 11-05 00:00: 00 PERSONAL HISTORY OF PULMONARY EMBOLISM Active 11-05 00:00: 00 PERSONAL HISTORY OF OTHER VENOUS THROMBOSIS AND EMBOLISM Active 11-05 00:00: 00 Allergies, Adverse Reactions, Alerts Allergy Name Allergy Type Status Severity Reaction(s) Onset Date Inactive Date Treating Clinician Comments NO KNOWN ALLERGIES Propensity to adverse reactions Active 03-23 13:59: 01 Medications Ordered Medication Name Filled Medication Name Start Date Stop Date Current Medication? Ordering Clinician Indication Dosage Frequency Signature (SIG) Comments Components atorvastati n 80 mg tablet 03-23 00:00: 00 Yes [id number] CHOLESTEROL 1 tablet DAILY 1 tablet DAILY (route: oral) Med Classific ation: Cardiovas cular Therapy Agents clonazepam 0.5 mg tablet 03-23 00:00: 00 Yes [id number] PRN ANXIETY 1 tablet 2 TIMES DAILY 1 tablet 2 TIMES DAILY (route: oral) Med Classific ation: Central Nervous System Agents clonidine HCl 0.2 mg tablet 03-23 00:00: 00 Yes [id number] BLOOD PRESSURE 1 tablet BEDTIME 1 tablet BEDTIME (route: oral) Med Classific ation: Cardiovas cular Therapy Agents Eliquis 5 mg tablet 03-23 00:00: 00 Yes [id number] BLOOD THINNER 1 tablet 2 TIMES DAILY 1 tablet 2 TIMES DAILY (route: oral) Med Classific ation: Hematolog ical Agents metoprolol succinate ER 25 mg tablet,exte nded release 24 hr 03-23 00:00: 00 Yes [id number] HEART 1 tablet DAILY 1 tablet DAILY (route: oral) Med Classific ation: Cardiovas cular Therapy Agents ProAir RespiClick 90 mcg/actuati on breath activated 03-23 00:00: 00 Yes [id number] SHORTNESS OF BREATH 2 puff EVERY 4 HOURS 2 puff EVERY 4 HOURS (route: inhalation ) Med Classific ation: Respirato ry Therapy Agents raloxifene 60 mg tablet 03-23 00:00: 00 Yes [id number] STRENGTHEN BONES 1 tablet DAILY 1 tablet DAILY (route: oral) Med Classific ation: Endocrine Tylenol 325 mg tablet 03-23 00:00: 00 Yes [id number] PAIN CONTROL 1-2 tablet EVERY 8 HOURS 1-2 tablet EVERY 8 HOURS (route: oral) Med Classific ation: Analgesic , Anti-infl ammatory or Antipyret ic Senna Lax 8.6 mg tablet 04-02 00:00: 00 Yes [id number] CONSTIPATIO N 1 tablet DAILY 1 tablet DAILY (route: oral) Med Classific ation: Gastroint estinal Therapy Agents mecobalamin (vitamin B12) 1,000 mcg lozenges 04-15 00:00: 00 Yes [id number] DEFICIENCY 1 lozenge DAILY 1 lozenge DAILY (route: oral) Med Classific ation: Electroly te Balance-N utritiona l Products Vital Signs Vital Name Observation Time Observation Value Commen ts Temperature 2024-05-21 15:27:00.000 97.8 [degF] Temperature 2024-05-12 14:40:00.000 97.7 [degF] Temperature 2024-05-07 11:28:00.000 97.8 [degF] Temperature 2024-05-05 13:38:00.000 97.3 [degF] Temperature 2024-05-01 12:29:00.000 97.1 [degF] Temperature 2024-04-24 12:19:00.000 97.1 [degF] Temperature 2024-04-23 13:50:00.000 97.9 [degF] Temperature 2024-04-21 11:31:00.000 97.8 [degF] Temperature 2024-04-17 14:17:00.000 97.1 [degF] Temperature 2024-04-17 13:12:00.000 97.2 [degF] Temperature 2024-04-15 15:00:00.000 97.9 [degF] Temperature 2024-04-14 12:22:00.000 97.4 [degF] Temperature 2024-04-11 10:42:00.000 97.2 [degF] Temperature 2024-04-09 14:08:00.000 97.5 [degF] Temperature 2024-04-08 12:00:00.000 97.9 [degF] Temperature 2024-04-07 14:31:00.000 97.3 [degF] Temperature 2024-04-04 11:02:00.000 97.7 [degF] Temperature 2024-04-03 14:59:00.000 97.3 [degF] Temperature 2024-04-02 14:24:00.000 97.4 [degF] Temperature 2024-04-01 13:32:00.000 97.3 [degF] Temperature 2024-03-27 13:15:00.000 97.6 [degF] Temperature 2024-03-26 11:46:00.000 98 [degF] Temperature 2024-03-25 14:52:00.000 97.9 [degF] Temperature 2024-03-24 14:44:00.000 97.8 [degF] Temperature 2024-03-24 10:59:00.000 97.5 [degF] Temperature 2024-03-23 14:45:00.000 96.8 [degF] Height 2024-03-23 14:07:20.000 66 [in_us] Pulse 2024-05-21 15:27:00.000 68 /min Pulse 2024-05-12 14:40:00.000 64 /min Pulse 2024-05-07 11:28:00.000 71 /min Pulse 2024-05-05 13:38:00.000 60 /min Pulse 2024-05-01 12:29:00.000 62 /min Pulse 2024-04-24 12:19:00.000 58 /min Pulse 2024-04-23 13:50:00.000 76 /min Pulse 2024-04-21 11:31:00.000 67 /min Pulse 2024-04-17 14:17:00.000 60 /min Pulse 2024-04-17 13:12:00.000 80 /min Pulse 2024-04-15 15:00:00.000 81 /min Pulse 2024-04-14 12:22:00.000 74 /min Pulse 2024-04-11 10:42:00.000 80 /min Pulse 2024-04-09 14:08:00.000 70 /min Pulse 2024-04-08 12:00:00.000 68 /min Pulse 2024-04-07 14:31:00.000 60 /min Pulse 2024-04-04 11:02:00.000 71 /min Pulse 2024-04-03 14:59:00.000 63 /min Pulse 2024-04-02 14:24:00.000 63 /min Pulse 2024-04-01 13:32:00.000 63 /min Pulse 2024-03-27 13:15:00.000 63 /min Pulse 2024-03-26 11:46:00.000 60 /min Pulse 2024-03-25 14:52:00.000 54 /min Pulse 2024-03-24 14:44:00.000 68 /min Pulse 2024-03-24 10:59:00.000 75 /min Pulse 2024-03-23 14:45:00.000 70 /min O2 Saturation (%) 2024-05-21 15:27:00.000 98 % O2 Saturation (%) 2024-05-12 14:40:00.000 97 % O2 Saturation (%) 2024-05-07 11:28:00.000 97 % O2 Saturation (%) 2024-05-01 12:29:00.000 98 % O2 Saturation (%) 2024-04-24 12:19:00.000 99 % O2 Saturation (%) 2024-04-21 11:31:00.000 98 % O2 Saturation (%) 2024-04-17 14:17:00.000 98 % O2 Saturation (%) 2024-04-15 15:00:00.000 97 % O2 Saturation (%) 2024-04-14 12:22:00.000 94 % O2 Saturation (%) 2024-04-09 14:08:00.000 96 % O2 Saturation (%) 2024-04-08 12:00:00.000 97 % O2 Saturation (%) 2024-04-07 14:31:00.000 96 % O2 Saturation (%) 2024-04-04 11:02:00.000 97 % O2 Saturation (%) 2024-04-02 14:24:00.000 94 % O2 Saturation (%) 2024-04-01 13:32:00.000 97 % O2 Saturation (%) 2024-03-27 13:15:00.000 95 % O2 Saturation (%) 2024-03-26 11:46:00.000 98 % O2 Saturation (%) 2024-03-25 14:52:00.000 98 % O2 Saturation (%) 2024-03-24 14:44:00.000 97 % O2 Saturation (%) 2024-03-23 14:47:00.000 95 % O2 Saturation (%) 2024-03-23 14:45:00.000 98 % Respirations 2024-05-21 15:27:00.000 16 /min Respirations 2024-05-12 14:40:00.000 17 /min Respirations 2024-05-07 11:28:00.000 18 /min Respirations 2024-05-05 13:38:00.000 16 /min Respirations 2024-05-01 12:29:00.000 16 /min Respirations 2024-04-24 12:19:00.000 18 /min Respirations 2024-04-23 13:50:00.000 18 /min Respirations 2024-04-21 11:31:00.000 17 /min Respirations 2024-04-17 14:17:00.000 16 /min Respirations 2024-04-17 13:12:00.000 18 /min Respirations 2024-04-15 15:00:00.000 18 /min Respirations 2024-04-14 12:22:00.000 18 /min Respirations 2024-04-11 10:42:00.000 18 /min Respirations 2024-04-09 14:08:00.000 16 /min Respirations 2024-04-08 12:00:00.000 18 /min Respirations 2024-04-07 14:31:00.000 16 /min Respirations 2024-04-04 11:02:00.000 16 /min Respirations 2024-04-03 14:59:00.000 16 /min Respirations 2024-04-02 14:24:00.000 16 /min Respirations 2024-04-01 13:32:00.000 16 /min Respirations 2024-03-27 13:15:00.000 18 /min Respirations 2024-03-26 11:46:00.000 17 /min Respirations 2024-03-25 14:52:00.000 16 /min Respirations 2024-03-24 14:44:00.000 18 /min Respirations 2024-03-24 10:59:00.000 18 /min Respirations 2024-03-23 14:45:00.000 16 /min Systolic Blood Pressure 2024-05-21 15:27:00.000 110 mm [Hg] Systolic Blood Pressure 2024-05-12 14:40:00.000 110 mm [Hg] Systolic Blood Pressure 2024-05-07 11:28:00.000 118 mm [Hg] Systolic Blood Pressure 2024-05-05 13:38:00.000 100 mm [Hg] Systolic Blood Pressure 2024-05-01 12:29:00.000 102 mm [Hg] Systolic Blood Pressure 2024-04-24 12:19:00.000 110 mm [Hg] Systolic Blood Pressure 2024-04-23 13:50:00.000 118 mm [Hg] Systolic Blood Pressure 2024-04-21 11:31:00.000 120 mm [Hg] Systolic Blood Pressure 2024-04-17 14:17:00.000 120 mm [Hg] Systolic Blood Pressure 2024-04-17 13:12:00.000 126 mm [Hg] Systolic Blood Pressure 2024-04-15 15:00:00.000 112 mm [Hg] Systolic Blood Pressure 2024-04-14 12:22:00.000 108 mm [Hg] Systolic Blood Pressure 2024-04-11 10:42:00.000 110 mm [Hg] Systolic Blood Pressure 2024-04-09 14:08:00.000 120 mm [Hg] Systolic Blood Pressure 2024-04-08 12:00:00.000 130 mm [Hg] Systolic Blood Pressure 2024-04-07 14:31:00.000 110 mm [Hg] Systolic Blood Pressure 2024-04-04 11:02:00.000 118 mm [Hg] Systolic Blood Pressure 2024-04-03 14:59:00.000 105 mm [Hg] Systolic Blood Pressure 2024-04-02 14:24:00.000 130 mm [Hg] Systolic Blood Pressure 2024-04-01 13:32:00.000 130 mm [Hg] Systolic Blood Pressure 2024-03-27 13:15:00.000 108 mm [Hg] Systolic Blood Pressure 2024-03-26 11:46:00.000 120 mm [Hg] Systolic Blood Pressure 2024-03-25 14:52:00.000 140 mm [Hg] Systolic Blood Pressure 2024-03-24 14:44:00.000 110 mm [Hg] Systolic Blood Pressure 2024-03-24 10:59:00.000 90 mm[ Hg] Systolic Blood Pressure 2024-03-23 14:47:00.000 112 mm [Hg] Systolic Blood Pressure 2024-03-23 14:45:00.000 102 mm [Hg] Diastolic Blood Pressure 2024-05-21 15:27:00.000 62 mm [Hg] Diastolic Blood Pressure 2024-05-12 14:40:00.000 68 mm [Hg] Diastolic Blood Pressure 2024-05-07 11:28:00.000 78 mm [Hg] Diastolic Blood Pressure 2024-05-05 13:38:00.000 60 mm [Hg] Diastolic Blood Pressure 2024-05-01 12:29:00.000 60 mm [Hg] Diastolic Blood Pressure 2024-04-24 12:19:00.000 58 mm [Hg] Diastolic Blood Pressure 2024-04-23 13:50:00.000 68 mm [Hg] Diastolic Blood Pressure 2024-04-21 11:31:00.000 68 mm [Hg] Diastolic Blood Pressure 2024-04-17 14:17:00.000 55 mm [Hg] Diastolic Blood Pressure 2024-04-17 13:12:00.000 66 mm [Hg] Diastolic Blood Pressure 2024-04-15 15:00:00.000 52 mm [Hg] Diastolic Blood Pressure 2024-04-14 12:22:00.000 62 mm [Hg] Diastolic Blood Pressure 2024-04-11 10:42:00.000 64 mm [Hg] Diastolic Blood Pressure 2024-04-09 14:08:00.000 60 mm [Hg] Diastolic Blood Pressure 2024-04-08 12:00:00.000 78 mm [Hg] Diastolic Blood Pressure 2024-04-07 14:31:00.000 55 mm [Hg] Diastolic Blood Pressure 2024-04-04 11:02:00.000 68 mm [Hg] Diastolic Blood Pressure 2024-04-03 14:59:00.000 70 mm [Hg] Diastolic Blood Pressure 2024-04-02 14:24:00.000 70 mm [Hg] Diastolic Blood Pressure 2024-04-01 13:32:00.000 60 mm [Hg] Diastolic Blood Pressure 2024-03-27 13:15:00.000 64 mm [Hg] Diastolic Blood Pressure 2024-03-26 11:46:00.000 68 mm [Hg] Diastolic Blood Pressure 2024-03-25 14:52:00.000 70 mm [Hg] Diastolic Blood Pressure 2024-03-24 14:44:00.000 68 mm [Hg] Diastolic Blood Pressure 2024-03-24 10:59:00.000 62 mm [Hg] Diastolic Blood Pressure 2024-03-23 14:47:00.000 65 mm [Hg] Diastolic Blood Pressure 2024-03-23 14:45:00.000 62 mm [Hg] Plan of Treatment Planned Activity Planned Date Details Comments Future Scheduled Test PHYSICAL T HERAPIST TO EVALUATE FOR STRENGTH AND SAFETY [code = PHYSICAL THERAPIST TO EVALUATE FOR STRENGTH AND SAFETY] Future Scheduled Test SPEECH THE RAPIST TO EVALUATE FOR COGNATIVE ASSISTANCE [code = SPEECH THERAPIST TO EVALUATE FOR COGNATIVE ASSISTANCE] Future Scheduled Test OCCUPATION AL THERAPIST TO EVALUATE FOR SAFETY [code = OCCUPATIONAL THERAPIST TO EVALUATE FOR SAFETY] Future Scheduled Test MEDICATION MANAGEMENT; REGISTERED NURSE/LICENSED PRACTICAL NURSE TO REVIEW MEDICATIONS FOR INTERACTIONS, EFFECTIVENESS OF DRUG THERAPY, AND SIGNS/SYMPTOMS OF ADVERSE REACTIONS. MAY INSTRUCT AND REINFORCE MEDICATION TEACHING RELATED TO THE USE OF MEDICATIONS, DOSAGE, FREQUENCY, PURPOSE, SIDE EFFECTS, AND TO REPORT COMPLICATIONS. MONITOT PILLBOX FILL ACCURACY ANDCOMPLIANCE [code = MEDICATION MANAGEMENT; REGISTERED NURSE/LICENSED PRACTICAL NURSE TO REVIEW MEDICATIONS FOR INTERACTIONS, EFFECTIVENESS OF DRUG THERAPY, AND SIGNS/SYMPTOMS OF ADVERSE REACTIONS. MAY INSTRUCT AND REINFORCE MEDICATION TEACHING RELATED TO THE USE OF MEDICATIONS, DOSAGE, FREQUENCY, PURPOSE, SIDE EFFECTS, AND TO REPORT COMPLICATIONS. MONITOT PILLBOX FILL ACCURACY ANDCOMPLIANCE] Future Scheduled Test FALL REDUC TION MANAGEMENT; REGISTERED NURSE TO ASSESS AND TEACH/LICENSED PRACTICAL NURSE TO OBSERVE AND TEACH ON EDUCATION AND INTERVENTION TO IDENTIFY FALL RISK FACTORS SUCH MEDICATIONS THAT MAY CAUSE DIZZINESS, CHRONIC DISEASES, PSYCHOLOGICAL FACTORS, AND EMPOWER/EDUCATE PATIENT/CAREGIVER TO MINIMIZE FALL RISK. [code = FALL REDUCTION MANAGEMENT; REGISTERED NURSE TO ASSESS AND TEACH/LICENSED PRACTICAL NURSE TO OBSERVE AND TEACH ON EDUCATION AND INTERVENTION TO IDENTIFY FALL RISK FACTORS SUCH MEDICATIONS THAT MAY CAUSE DIZZINESS, CHRONIC DISEASES, PSYCHOLOGICAL FACTORS, AND EMPOWER/EDUCATE PATIENT/CAREGIVER TO MINIMIZE FALL RISK.] Future Scheduled Test GENITOURIN KACI MANAGEMENT; REGISTERED NURSE TO ASSESS AND TEACH/LICENSED PRACTICAL NURSE TO OBSERVE AND TEACH RELATED TO ALTERED GENITOURINARY STATUS TO MINIMIZE COMPLICATIONS AND REDUCE HOSPITALIZATION. [code = GENITOURINARY MANAGEMENT; REGISTERED NURSE TO ASSESS AND TEACH/LICENSED PRACTICAL NURSE TO OBSERVE AND TEACH RELATED TO ALTERED GENITOURINARY STATUS TO MINIMIZE COMPLICATIONS AND REDUCE HOSPITALIZATION.] Future Scheduled Test URINARY IN CONTINENCE MANAGEMENT; REGISTERED NURSE TO ASSESS AND TEACH/LICENSED PRACTICAL NURSE TO OBSERVE AND TEACH MANAGEMENT OF URINARY INCONTINENCE. TEACH/INSTRUCT ON PREVENTING INFECTION AND SKIN BREAKDOWN. REGISTERED NURSE/LICENSED PRACTICAL NURSE MAY INSTRUCT IN BLADDER TRAINING PROGRAM INDICATED. [code = URINARY INCONTINENCE MANAGEMENT; REGISTERED NURSE TO ASSESS AND TEACH/LICENSED PRACTICAL NURSE TO OBSERVE AND TEACH MANAGEMENT OF URINARY INCONTINENCE. TEACH/INSTRUCT ON PREVENTING INFECTION AND SKIN BREAKDOWN. REGISTERED NURSE/LICENSED PRACTICAL NURSE MAY INSTRUCT IN BLADDER TRAINING PROGRAM INDICATED.] Future Scheduled Test URINARY TR ACT INFECTION MANAGEMENT; REGISTERED NURSELICENSED PRACTICAL NURSE TO PROVIDE SKILLED TEACHING AND SELF- CARE MANAGEMENT RELATED TO UTI TO MINIMIZE COMPLICATIONS AND REDUCE THE RISK OF HOSPITALIZATION. [code = URINARY TRACT INFECTION MANAGEMENT; REGISTERED NURSELICENSED PRACTICAL NURSE TO PROVIDE SKILLED TEACHING AND SELF- CARE MANAGEMENT RELATED TO UTI TO MINIMIZE COMPLICATIONS AND REDUCE THE RISK OF HOSPITALIZATION.] Future Scheduled Test NEUROLOGIC AL SYSTEM MANAGEMENT; REGISTERED NURSE TO ASSESS AND TEACH/LICENSED PRACTICAL NURSE TO OBSERVEAND TEACH RELATED TO ALTERED NEUROLOGICAL STATUS TO MINIMIZE COMPLICATIONS AND REDUCE HOSPITALIZATION. [code = NEUROLOGICAL SYSTEM MANAGEMENT; REGISTERED NURSE TO ASSESS AND TEACH/LICENSED PRACTICAL NURSE TO OBSERVEAND TEACH RELATED TO ALTERED NEUROLOGICAL STATUS TO MINIMIZE COMPLICATIONS AND REDUCE HOSPITALIZATION. ] Future Scheduled Test CEREBRAL V ASCULAR ACCIDENT MANAGEMENT; REGISTERED NURSE/LICENSED PRACTICAL NURSE TO PROVIDE SKILLED TEACHING AND MANAGEMENT OF POST CEREBRAL VASCULAR ACCIDENT. [code = CEREBRAL VASCULAR ACCIDENT MANAGEMENT; REGISTERED NURSE/LICENSED PRACTICAL NURSE TO PROVIDE SKILLED TEACHING AND MANAGEMENT OF POST CEREBRAL VASCULAR ACCIDENT. ] Future Scheduled Test RN TO OBSE RVE, ASSESS, EVALUATE, AND DEVELOP AN INDIVIDUALIZED PLAN OF CARE. AGENCY MAY ACCEPT ORDERS FROM CONSULTING PHYSICIANS DR OVALLES. REGISTERED NURSETO OBSERVE AND ASSESS/LICENSED PRACTICAL NURSE TO OBSERVE FOR RISK FOR FALLS AND INSTRUCT IN FALL PREVENTION, HOME SAFETY, MEDICATION MANAGEMENT, INFECTION PREVENTION, AND NUTRITION MANAGEMENT. REGISTERED NURSE/LICENSED PRACTICAL NURSE MAY PERFORM O2 SATURATION LEVEL ON ADMISSION AND PRN FOR RN TO ASSESS/CHEMIST STEROIDS TO OBSERVE PATIENT, WITH NOTIFICATION TO THE PHYSICIAN IF SATURATION IS 90% IN THE ABSENCE OF MORE SPECIFIC PARAMETERS FROM THE PHYSICIAN. AGENCY MAY PERFORM A RESUMPTION OF CARE VISIT FOLLOWING ANY HOSPITAL ADMISSION. REGISTERED NURSE/LICENSED PRACTICAL NURSE TO MONITOR CO-MORBID CONDITIONS LISTED ON THE PLAN OF CARE AND ANY NEW CONDITIONS THAT PRESENT THEMSELVES DURING THIS EPISODE TO IDENTIFY CHANGES AND INTERVENE TO MINIMIZE COMPLICATIONS. [code = RN TO OBSERVE, ASSESS, EVALUATE, AND DEVELOP AN INDIVIDUALIZED PLAN OF CARE. AGENCY MAY ACCEPT ORDERS FROM CONSULTING PHYSICIANS DR OVALLES. REGISTERED NURSETO OBSERVE AND ASSESS/LICENSED PRACTICAL NURSE TO OBSERVE FOR RISK FOR FALLS AND INSTRUCT IN FALL PREVENTION, HOME SAFETY, MEDICATION MANAGEMENT, INFECTION PREVENTION, AND NUTRITION MANAGEMENT. REGISTERED NURSE/LICENSED PRACTICAL NURSE MAY PERFORM O2 SATURATION LEVEL ON ADMISSION AND PRN FOR RN TO ASSESS/CHEMIST STEROIDS TO OBSERVE PATIENT, WITH NOTIFICATION TO THE PHYSICIAN IF SATURATION IS 90% IN THE ABSENCE OF MORE SPECIFIC PARAMETERS FROM THE PHYSICIAN. AGENCY MAY PERFORM A RESUMPTION OF CARE VISIT FOLLOWING ANY HOSPITAL ADMISSION. REGISTERED NURSE/LICENSED PRACTICAL NURSE TO MONITOR CO-MORBID CONDITIONS LISTED ON THE PLAN OF CARE AND ANY NEW CONDITIONS THAT PRESENT THEMSELVES DURING THIS EPISODE TO IDENTIFY CHANGES AND INTERVENE TO MINIMIZE COMPLICATIONS.] Future Scheduled Test PAIN MANAG EMENT; REGISTERED NURSE TO ASSESS AND TEACH/LICENSED PRACTICAL NURSE TO OBSERVE AND TEACH AND PROVIDE EDUCATION ON PAIN MANAGEMENT TECHNIQUES. [code = PAIN MANAGEMENT; REGISTERED NURSE TO ASSESS AND TEACH/LICENSED PRACTICAL NURSE TO OBSERVE AND TEACH AND PROVIDE EDUCATION ON PAIN MANAGEMENT TECHNIQUES. ] Future Scheduled Test PRN VISITS ; NUMBER OF REGISTERED NURSE/LICENSED PRACTICALPRN VISITS: 3 REGISTERED NURSE/LICENSED PRACTICALTO PERFORM: ASSESSMENT AND EDUCATION FOR THE FOLLOWING REASONS: PT MANAGE,ENT CONCERNS OR CHANGE OF HEALTH STATUS [code = PRN VISITS; NUMBER OF REGISTERED NURSE/LICENSED PRACTICALPRN VISITS: 3 REGISTERED NURSE/LICENSED PRACTICALTO PERFORM: ASSESSMENT AND EDUCATION FOR THE FOLLOWING REASONS: PT MANAGE,ENT CONCERNS OR CHANGE OF HEALTH STATUS] Future Scheduled Test RISK FOR H OSPITALIZATION; REGISTERED NURSE TO ASSESS /TEACH, LICENSED PRACTICAL NURSE TO OBSERVE/TEACH PATIENT/CAREGIVER ON RISK FOR HOSPITALIZATION/EMERGENCY ROOM VISITS, TEACH SIGNS AND SYMPTOMS THAT PUT PATIENT AT RISK, WHEN TO NOTIFY NURSE/PHYSICIAN OF COMPLICATIONS/DECLINE, AND WHEN TO CALL 911. [code = RISK FOR HOSPITALIZATION; REGISTERED NURSE TO ASSESS /TEACH, LICENSED PRACTICAL NURSE TO OBSERVE/TEACH PATIENT/CAREGIVER ON RISK FOR HOSPITALIZATION/EMERGENCY ROOM VISITS, TEACH SIGNS AND SYMPTOMS THAT PUT PATIENT AT RISK, WHEN TO NOTIFY NURSE/PHYSICIAN OF COMPLICATIONS/DECLINE, AND WHEN TO CALL 911.] Future Scheduled Test CARDIOVASC ULAR SYSTEM; REGISTERED NURSE TO ASSESS /TEACH, LICENSED PRACTICAL NURSE TO OBSERVE/TEACH RELATED TO ALTERED CARDIOVASCULAR STATUS TO MINIMIZE COMPLICATIONS AND REDUCE HOSPITALIZATION. [code = CARDIOVASCULAR SYSTEM; REGISTERED NURSE TO ASSESS /TEACH, LICENSED PRACTICAL NURSE TO OBSERVE/TEACH RELATED TO ALTERED CARDIOVASCULAR STATUS TO MINIMIZE COMPLICATIONS AND REDUCE HOSPITALIZATION.] Future Scheduled Test AGENCY MAY PERFORM A RESUMPTION OF CARE VISIT FOLLOWING ANY HOSPITAL ADMISSION. PHYSICAL THERAPY TO EVALUATE, ASSESS AND MONITOR, PROVIDE SKILLED THERAPEUTIC INTERVENTION, ACTIVITY, EDUCATION, AND TRAINING TO ADDRESS: TRANSFER TRAINING (PT) GAIT TRAINING (PT) NEUROMUSCULAR RE-EDUCATION / BALANCE RETRAINING (PT) THERAPEUTIC EXERCISES (PT) OXYGEN SATURATION (PT). NOTIFY MD IF 02SATS BELOW 90% AFTER 10 MIN OF REST. UTI OBSERVATION AND EDUCATION - PHYSICAL THERAPY IDENTIFY FALL RISK FACTORS AND ESTABLISH HOME EXERCISE PROGRAM TO MINIMIZE FALL RISK. MAY TEACH THE PATIENT FLOOR RECOVERY WHEN CLINICALLY APPROPRIATE (PT) CVA NEED FOR PATIENT EDUCATION ? PT PAIN MANAGEMENT (PT) [code = AGENCY MAY PERFORM A RESUMPTION OF CARE VISIT FOLLOWING ANY HOSPITAL ADMISSION. PHYSICAL THERAPY TO EVALUATE, ASSESS AND MONITOR, PROVIDE SKILLED THERAPEUTIC INTERVENTION, ACTIVITY, EDUCATION, AND TRAINING TO ADDRESS: TRANSFER TRAINING (PT) GAIT TRAINING (PT) NEUROMUSCULAR RE-EDUCATION / BALANCE RETRAINING (PT) THERAPEUTIC EXERCISES (PT) OXYGEN SATURATION (PT). NOTIFY MD IF 02SATS BELOW 90% AFTER 10 MIN OF REST. UTI OBSERVATION AND EDUCATION - PHYSICAL THERAPY IDENTIFY FALL RISK FACTORS AND ESTABLISH HOME EXERCISE PROGRAM TO MINIMIZE FALL RISK. MAY TEACH THE PATIENT FLOOR RECOVERY WHEN CLINICALLY APPROPRIATE (PT) CVA NEED FOR PATIENT EDUCATION ? PT PAIN MANAGEMENT (PT) ] Future Scheduled Test AGENCY MAY PERFORM A RESUMPTION OF CARE VISIT FOLLOWING ANY HOSPITAL ADMISSION. SPEECH THERAPY TO EVALUATE, ASSESS AND MONITOR, PROVIDE SKILLED THERAPEUTIC INTERVENTION, ACTIVITY, EDUCATION, AND TRAINING TO ADDRESS: MEMORY/RECALL (ST) ATTENTION DEFICIT (ST) STROKE SELF-MANAGEMENT (ST) FALL REDUCTION SELF-MANAGEMENT (ST); PAIN MANAGEMENT (ST) [code = AGENCY MAY PERFORM A RESUMPTION OF CARE VISIT FOLLOWING ANY HOSPITAL ADMISSION. SPEECH THERAPY TO EVALUATE, ASSESS AND MONITOR, PROVIDE SKILLED THERAPEUTIC INTERVENTION, ACTIVITY, EDUCATION, AND TRAINING TO ADDRESS: MEMORY/RECALL (ST) ATTENTION DEFICIT (ST) STROKE SELF-MANAGEMENT (ST) FALL REDUCTION SELF-MANAGEMENT (ST); PAIN MANAGEMENT (ST)] Future Scheduled Test AGENCY MAY PERFORM A RESUMPTION OF CARE VISIT FOLLOWING ANY HOSPITAL ADMISSION. OT TO EVALUATE, OBSERVE / ASSESS, AND MONITOR, ZIPPER TRIMMER HAND TO OBSERVE AND MONITOR, PROVIDE SKILLED THERAPEUTIC INTERVENTION, ACTIVITY, EDUCATION, AND TRAINING TO ADDRESS; CVA MANAGEMENT, FALL PREVENTION, R DENIS, WEAKNESS, IMPAIRED BALANCE, DECLINE IN ADLS AND FUNCTIONAL MOBILITY. BATHING/SHOWERING (OT/YAMILA) TOILETING HYGIENE (OT/YAMILA) DRESSING (OT/ZIPPER TRIMMER HAND) OT/YAMILA TO MONITOR AND EDUCATE ON OXYGEN SATURATION DURING ADLS/IADLS, NOTIFY PHYSICIAN AND/OR THE RN CLINICAL COMMERCIAL ELECTRICIAN FOR PHYSICIAN NOTIFICATION AND IF O2 SATS BELOW 90% AFTER 10 MIN OF REST. OT/YAMILA TO MONITOR FOR SIGNS AND SYMPTOMS OF UTI AND EDUCATE PATIENT/CAREGIVER TO MINIMIZE RISK OF DEVELOPING A UTI. OT / YAMILA TO IDENTIFY FALL RISK FACTORS; EDUCATE THE PATIENT/CAREGIVER ON WAYS TO REDUCE FALL RISK FACTORS AND ESTABLISH HOME EXERCISE PROGRAM TO MINIMIZE FALL RISK. MAY TEACH THE PATIENT FLOOR RECOVERY WHEN CLINICALLY APPROPRIATE. OT / YAMILA TO EDUCATE ON CVA SELF-MANAGEMENT [code = AGENCY MAY PERFORM A RESUMPTION OF CARE VISIT FOLLOWING ANY HOSPITAL ADMISSION. OT TO EVALUATE, OBSERVE / ASSESS, AND MONITOR, YAMILA TO OBSERVE AND MONITOR, PROVIDE SKILLED THERAPEUTIC INTERVENTION, ACTIVITY, EDUCATION, AND TRAINING TO ADDRESS; CVA MANAGEMENT, FALL PREVENTION, R DENIS, WEAKNESS, IMPAIRED BALANCE, DECLINE IN ADLS AND FUNCTIONAL MOBILITY. BATHING/SHOWERING (OT/YAMILA) TOILETING HYGIENE (OT/ZIPPER TRIMMER HAND) DRESSING (OT/ZIPPER TRIMMER HAND) OT/YAMILA TO MONITOR AND EDUCATE ON OXYGEN SATURATION DURING ADLS/IADLS, NOTIFY PHYSICIAN AND/OR THE RN CLINICAL COMMERCIAL ELECTRICIAN FOR PHYSICIAN NOTIFICATION AND IF O2 SATS BELOW 90% AFTER 10 MIN OF REST. OT/ZIPPER TRIMMER HAND TO MONITOR FOR SIGNS AND SYMPTOMS OF UTI AND EDUCATE PATIENT/CAREGIVER TO MINIMIZE RISK OF DEVELOPING A UTI. OT / ZIPPER TRIMMER HAND TO IDENTIFY FALL RISK FACTORS; EDUCATE THE PATIENT/CAREGIVER ON WAYS TO REDUCE FALL RISK FACTORS AND ESTABLISH HOME EXERCISE PROGRAM TO MINIMIZE FALL RISK. MAY TEACH THE PATIENT FLOOR RECOVERY WHEN CLINICALLY APPROPRIATE. OT / YAMILA TO EDUCATE ON CVA SELF-MANAGEMENT] Goal 2024-05-21 Patient Goal - GAIN STRENGTH Goal Provider Goal - Goal Provider Goal - Goal Provider Goal - Goal Provider Goal - PATIENT/CAREGIVER TO VERBALIZE, AND CONSISTENTLY DEMONSTRATE EFFECTIVE, SAFE MANAGEMENT OF MEDICATION INCLUDING KNOWLEDGE OF EFFECTIVENESS, POTENTIAL SIDE EFFECTS AND DRUG REACTIONS AND WHEN TO CONTACT THE APPROPRIATE CARE PROVIDER. PATIENT/CAREGIVER WILL BE ABLE TO VERBALIZE UNDERSTANDING OF MEDICATION REGIMEN AND ACCURATELY TAKE MEDICATIONS PRESCRIBED WITHOUT ADVERSE EFFECTS BY DISCHARGE Goal Provider Goal - PATIENT/CAREGIVER ABLE TO IDENTIFY FALL RISK FACTORS AND IMPLEMENT STRATEGIES TO MINIMIZE FALL RISK. PATIENT/CAREGIVER WILL VERBALIZE/DEMONSTRATE AN ABILITY TO ADHERE TO FALL REDUCTION SELF MANAGEMENT AND LIFE-STYLE CHANGES AT DISCHARGE. PERSONAL GOAL(S) STATED BY PATIENT/CAREGIVER WILL BE MET BY DISCHARGE Goal Provider Goal - PATIENT / CAREGIVER WILL VERBALIZE/DEMONSTRATE UNDERSTANDING OF MEASURES TO MANAGE ALTERED GENITOURINARY STATUS BY END OF EPISODE. Goal Provider Goal - PATIENT/CAREGIVER WILL VERBALIZE/DEMONSTRATE UNDERSTANDING OF CARE AND MANAGEMENT OF URINARY INCONTINENCE BY DISCHARGE Goal Provider Goal - PATIENT/CAREGIVER WILL VERBALIZE/DEMONSTRATE UNDERSTANDING OF CARE AND MANAGEMENT OF URINARY TRACT INFECTION BY EOE Goal Provider Goal - PATIENT / CAREGIVER WILL VERBALIZE/DEMONSTRATE UNDERSTANDING OF MEASURES TO MANAGE ALTERED NEUROLOGICAL STATUS BY EOE. Goal Provider Goal - PATIENT / CAREGIVER WILL VERBALIZE/DEMONSTRATE CARE AND SELF-MANAGEMENT OF CVA TO MINIMIZE COMPLICATIONS AND AVOID HOSPITALIZATION BY END OF EPISODE. Goal Provider Goal - A PLAN OF CARE WILL BE ESTABLISHED THAT MEETS THE PATIENTS NEEDS. PATIENT WILL DEMONSTRATE OXYGEN SATURATION WITHIN NORMAL LIMITS OR PATIENTS OPTIMAL LEVEL ESTABLISHED BY THE PHYSICIAN THROUGHOUT CARE. CHANGES TO CO-MORBID CONDITIONS AND ANY NEW CONDITIONS WILL BE IDENTIFIED AND REPORTED TO THE PHYSICIAN. Goal Provider Goal - PATIENT / CAREGIVER WILL VERBALIZE / DEMONSTRATE UNDERSTANDING OF PAIN CONTROL MEASURES BY EOE Goal Provider Goal - Goal Provider Goal - PATIENT/CAREGIVER WILL VERBALIZE UNDERSTANDING OF SIGNS AND SYMPTOMS THAT PUT THE PATIENT AT RISK FOR HOSPITALIZATION /EMERGENCY ROOM VISITS, WHEN TO NOTIFY NURSE/PHYSICIAN OF COMPLICATIONS/DECLINE AND WHEN TO CALL 911. Goal Provider Goal - PATIENT / CAREGIVER WILL VERBALIZE/DEMONSTRATE UNDERSTANDING OF MEASURES TO MANAGE ALTERED CARDIOVASCULAR STATUS BY DISCHARGE Goal Provider Goal - PT STG: PATIENT WILL DEMONSTRATE PROPER POSITIONING AT EDGE OF SITTING SURFACE AND PROPER HAND PLACEMENT IN PREP FOR TRANSFERS WITHIN 3 WEEKS PT LTG: PATIENT WILL DEMONSTRATE IMPROVED TRANSFERS FROM MOD ASSIST TO INDEPENDENT WITH UE ASSIST AND WALKER WITHIN 9 WEEKS PT STG: PATIENT WILL DEMONSTRATE PROPER POSITIONING WITHIN WALKER BASE, ADEQUATE STEP LENGTH AND CONSISTENT FOOT CLEARANCE BILATERALLY TO IMPROVE GAIT PATTERN WITHIN 4 WEEKS PT LTG: PATIENT WILL DEMONSTRATE IMPROVED AMBULATION FROM MOD ASSIST TO SUP WITH WALKER WITHIN 9 WEEKS PT LTG: PATIENT WILL DEMONSTRATE ABILITY TO STAND UNSUPPORTED AND PERFORM UE MOVEMENTS ACROSS MIDLINE X 4 MINUTES WITHOUT LOB WITHIN 9 WEEKS PT STG: PATIENT WILL DEMONSTRATE INDEPENDENCE WITH LOWER EXTREMITY HOME EXERCISE PROGRAM WITHIN 4 WEEKS PT LTG: PATIENT WILL DEMONSTRATE INCREASED STRENGTH OF BILATERAL LES FROM 3-/5 TO 4/5 WITHIN 9 WEEKS IN ORDER TO IMPROVE SAFETY AND STABILITY WITH GAIT AND STANDING ACTIVITIES PATIENT WILL MAINTAIN OXYGEN SATURATION WITHIN PHYSICIAN ORDERED PARAMETERS THROUGHOUT EPISODE OF CARE PT GOAL: PATIENT WILL NOT EXHIBIT SIGNS AND SYMPTOMS OF UTI. PATIENT/CAREGIVER WILL DEMONSTRATE ADHERENCE TO FALL REDUCTION SELF MANAGEMENT TO MINIMIZE FALL BY END OF EPISODE. PATIENT/CAREGIVER WILL BE VERBALIZE UNDERSTANDING OF A CVA, SIGNS/SYMPTOMS TO REPORT, WELL SELF-MANAGEMENT AND LIFE-STYLE CHANGES BY END OF EPISODE. PT GOAL: PATIENT/CAREGIVER WILL VERBALIZE UNDERSTANDING OF PAIN MANAGEMENT BY END OF EPISODE. Goal Provider Goal - ST LTG: PATIENT/CAREGIVER WILL INCREASE USE OF EXTERNAL MEMORY AIDES DURING ADLS AND IADLS FROM MOD-SEVERE TO MOD WITHIN [address] STG: PATIENT WILL DEMONSTRATE IMPROVED ATTENTION DURING STRUCTURED TASKS FROM MOD-SEVERE TO MOD WITHIN [address] LTG: PATIENT WILL DEMONSTRATE IMPROVED ATTENTION DURING STRUCTURED TASKS FROM MOD-SEVERE TO MIN-MOD WITHIN [address] GOAL: PATIENT/CAREGIVER WILL VERBALIZE UNDERSTANDING OF A STROKE, SIGNS/SYMPTOMS TO REPORT, WELL SELF-MANAGEMENT AND LIFE-STYLE CHANGES AT DISCHARGE. STG: PATIENT/CAREGIVER WILL DEMONSTRATE ADHERENCE TO FALL REDUCTION SELF MANAGEMENT TO MINIMIZE FALL RISK BY END OF EPISODE. ST GOAL: PATIENT / CAREGIVER WILL VERBALIZE UNDERSTANDING OF PAIN MANAGEMENT BY END OF EPISODE. Goal Provider Goal - OT STG: PATIENT WILL DEMONSTRATE IMPROVED SHOWER ROUTINE WITH MOD ASSIST WITHIN 2 WEEKS. OT LTG: PATIENT WILL DEMONSTRATE IMPROVED ABILITY TO PERFORM BATHING/SHOWERING AND REDUCE CAREGIVER BURDEN FROM MAX ASSIST TO MIN/MOD ASSIST WITHIN 8 WEEKS. OT STG: PATIENT WILL DEMONSTRATE IMPROVED TOILETING MANAGEMENT WITH MOD ASSIST WITHIN 2 WEEKS. OT LTG: PATIENT WILL DEMONSTRATE IMPROVED ABILITY TO PERFORM TOILET HYGIENE AND REDUCE THE RISK OF DEVELOPING A UTI FROM MAX ASSIST TO SUPERVISION WITHIN 8 WEEKS. OT STG: PATIENT WILL DEMONSTRATE IMPROVED DRESSING WITH MOD ASSIST WITHIN 2 WEEKS. OT LTG: PATIENT WILL DEMONSTRATE IMPROVED ABILITY TO PERFORM LOWER BODY DRESSING TO REDUCE CAREGIVER BURDEN FROM MAX ASSIST TO MIN/MOD ASSIST WITHIN 8 WEEKS. OT LTG: PATIENT WILL MAINTAIN OXYGEN SATURATION WITHIN PHYSICIAN ORDERED PARAMETERS THROUGHOUT THE EPISODE OF CARE. OT GOAL: PATIENT WILL NOT EXHIBIT SIGNS AND SYMPTOMS OF UTI THROUGHOUT THE EPISODE OF CARE. OT LTG: PATIENT/CAREGIVER WILL BE ABLE TO IMPLEMENT RECOMMENDATIONS SPECIFIC TO FALL REDUCTION FOR IMPROVED ADL/IADL COMPLETION AND HOME SAFETY BY END OF EPISODE. OT LTG: PATIENT WILL BE INDEPENDENT WITH IMPLEMENTATION OF HEP WITHIN 8 WEEKS. OT GOAL: PATIENT/CAREGIVER WILL BE VERBALIZE UNDERSTANDING OF A CVA, SIGNS/SYMPTOMS TO REPORT, WELL SELF-MANAGEMENT AND LIFE-STYLE CHANGES BY END OF EPISODE. Reason for Visit MINIMUM ASSIST WITH TRANSFER/AMBULATION/ADLS Encounters Start Date/Time End Date/Time Encounter Type Admission Type Attending [facility] Care Department Encounter ID Discharge Date Discharge Status Discharge Condition Discharge Reason Percent Goals Met 2024-03-23 00:00:00 2024-05-21 00:00:00 Outpatient NEW ADMISSION [facility] [id number] 2024-05-21 00:00:00 DISCHARGE TO HOME OR SELF CARE MINIMUM ASSIST WITH TRANSFER/A MBULATION/ ADLS HH OR PAL- GOALS MET 66.67
[2024-11-03 13:27] LABS: MANUAL DIFF FLAG NO
[2024-11-03 13:29] LABS: Basophils Percent Auto 0.1 % (0-2); Eosinophils Percent Auto 0.6 % (0-4); Hematocrit 40.2 % (37.0-47.0); Hemoglobin 13.2 g/dl (12.0-16.0); Imm Gran Abs Auto 0.01 X10*3/uL (0.00-0.03); Imm Gran Pct Auto 0.1 % (0.0-0.4); Lymphocytes Absolute Auto 1.8 X10*3/uL (1.2-4.9); Lymphocytes Percent Auto 25.8 % (20-40); Mean Corpuscular HGB Conc 32.8 g/dl (31.0-35.0); Mean Corpuscular Hemoglobin 29.2 pg (27.0-33.0); Mean Corpuscular Volume 88.9 fL (80.0-98.0); Mean Platelet Volume 9.1 fL (9.4-12.3); Monocytes Absolute Auto 0.7 X10*3/uL (0.1-1.2); Monocytes Percent Auto 9.8 % (2-11); Neutrophils Absolute Auto 4.3 x10*3/uL (2.0-8.3); Neutrophils Percent Auto 63.6 % (45-73); Platelet Count 207 X10*3/uL (160-400); Red Blood Count 4.52 X10*6/uL (4.20-5.50); Red Cell Distribution Width 14.1 % (11.0-16.0); White Blood Count 6.8 X10*3/uL (4.8-10.8)
[2024-11-03 13:48] LABS: Troponin-I High Sensitivity 4.4 ng/L (<3.5-17.0)
[2024-11-03 13:52] LABS: Lactic Acid 1.4 mmol/L (0.5-2.0)
[2024-11-03 13:53] LABS: Alanine Aminotransferase 6 U/L (0-31); Albumin Level 3.7 g/dL (3.5-5.0); Alkaline Phosphatase 94 U/L (39-117); Anion Gap 11 (12-20); Aspartate Amino Transferase 26 U/L (5-31); Bilirubin Direct 0.2 mg/dL (0.0-0.5); Bilirubin Total 0.6 mg/dL (0.0-1.0); Blood Urea Nitrogen 9 mg/dL (9-16); Calcium 9.3 mg/dL (8.4-10.2); Carbon Dioxide 24 mmol/L (22-29); Chloride 111 mmol/L (96-108); Creatinine Clr Calc Pharmacy 59.7; Estimated Glomerular Filt Rate > 60; Glucose Random 103 mg/dL (60-115); Lipase 23 U/L (8-78); Potassium 3.9 mmol/L (3.3-5.1); Sodium 142 mmol/L (135-145); Total Protein 6.8 g/dL (6.5-8.0)
[2024-11-03] MEDS: Acetaminophen 325 MG TABLET 650 MG PO (13:59)
[2024-11-03 14:00] VITALS: BP 126/43; PULSE 83; RESP 16; O2SAT 98
--- NOTE | 2024-11-03 14:59 | ED_ITS ---
HPI - Female Genitourinary General Chief complaint: Urogenital-Female Stated complaint: ABD PAIN,?UTI PER EMS Time Seen by Provider: 11/03/24 12:45 Source: patient History of Present Illness ED Provider: Gianna TORRES Narrative: 74y female presenting for abdominal pain and dysuria. patient states that she has been experiencing 1 day of painful urination without hematuria and abdominal pain. Patient also endorses nausea however denies vomiting. She denies fevers, chills, chest pain, shortness of breath. Related Data Home Medications ?Medication ?Instructions ?Recorded ?Confirmed clonazepam 0.5 mg tablet 0.5 mg PO BID PRN Anxiety 08/19/20 10/06/24 clonidine HCl 0.2 mg tablet 0.2 mg PO BEDTIME 08/19/20 10/06/24 escitalopram oxalate 20 mg tablet 20 mg PO DAILY 08/19/20 10/06/24 (Lexapro) metoprolol succinate 25 mg 25 mg PO DAILY 08/19/20 10/06/24 tablet,extended release 24 hr acetaminophen 650 mg 650 mg PO Q8H PRN Pain 11/23/20 10/06/24 tablet,extended release albuterol sulfate 90 mcg/actuation 90 mcg inhalation Q4H PRN 11/23/20 10/06/24 aerosol inhaler Shortness Of Breath Or Wheezing Previous Rx's ?Medication ?Instructions ?Recorded atorvastatin 80 mg tablet 80 mg PO BEDTIME #90 tabs 03/09/24 cyanocobalamin (vitamin B-12) 1,000 mcg sublingual DAILY #90 ea 04/14/24 1,000 mcg sublingual lozenge apixaban 5 mg tablet (Eliquis) 5 mg PO BID #180 tabs 05/01/24 raloxifene 60 mg tablet 60 mg PO DAILY #90 tabs 08/25/24 cefuroxime axetil 250 mg tablet 250 mg PO BID 7 days #14 tabs 10/05/24 ondansetron 4 mg disintegrating 4 mg PO Q6-8H PRN nausea and 10/05/24 tablet vomiting #7 tabs omeprazole 20 mg capsule,delayed 20 mg PO BID #180 caps 10/08/24 release Allergies Allergy/AdvReac Type Severity Reaction Status Date / Time hydrocodone [Vicodin] Allergy Unknown swelling Verified 11/03/24 12:52 ALL OVER Review of Systems 2 Review of Systems: Patient endorses dysuria and abdominal pain Yes all other systems are reviewed and are negative [facility] Past Medical History Medical History Nicotine dependence, cigarettes, uncomplicated Cerebral infarction VTE (venous thromboembolism) CVA, old, disturbances of vision History of non-ST elevation myocardial infarction (NSTEMI) (~2011) CAD (coronary artery disease) Hyperlipidemia Hypertension Osteopenia (~2011) History of CVA (cerebrovascular accident) (~2005) Tubular adenoma of colon (~2003) Pulmonary emboli (~12/2019) Ductal carcinoma in situ (DCIS) of right breast (~2010) COPD (chronic obstructive pulmonary disease) Arthritis Surgical History History of lithotripsy (~2012) History of colonoscopy History of right mastectomy (~2011) History of coronary angioplasty with insertion of stent (~2011) History of lumpectomy of right breast (~2010) History of reversal of tubal ligation Family History Family History Mother Hx of skin cancer, basal cell Social History Social History Household Members: None Housing: Apartment Are you a primary healthcare architect to a significant other at home: No Do you presently have visiting nurse or other home services: Yes (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) Patient Tobacco Use Status: Never used Tobacco Tobacco use type: Cigarette Cigarettes Per Day: 5 Years Smoked: (current smoker, onset 21yo, 1ppd x 51yrs, now 3-5cig/day - 40+PYH) e-Cigarette/Vaping Use: Currently Using Advance Directives: No Advance Directives Information Provided: Yes Do you have a plan to hurt others: No Plan service: No Current occupational status: disabled Physical Exam 2 Vital Signs: Vital Signs: Last Vital Signs Temp 97.9 F 11/03/24 18:04 Pulse 84 11/03/24 18:04 Resp 16 11/03/24 18:04 BP 136/77 11/03/24 18:04 Pulse Ox 99 11/03/24 18:04 O2 Del Method Room Air 11/03/24 18:04 BMI result Body Mass Index 24.8 well-appearing female in mild distress unlabored breathing with clear lung altman normal S1-S2 regular rate and rhythm abdomen is soft, nondistended with right lower quadrant and suprapubic tenderness to palpation no CVA tenderness or external signs of trauma Medications Administered Discontinued Medications Generic Name Dose Route Start Last Admin Trade Name George PRN Reason Stop Dose Admin Acetaminophen 650 mg 11/03/24 12:54 11/03/24 13:59 Acetaminophen 325 Mg Tablet PO 11/03/24 12:55 650 mg ONCE ONE Administration Iohexol 100 ml 11/03/24 15:14 11/03/24 15:14 Iohexol 350 Mg/Ml 100 Ml Infus..Btl IV 11/03/24 15:15 85 ml ONCE ONE Administration Medical Decision Making Medical Decision Making MDM Narrative: 74-year-old female presenting for abdominal pain. I am concerned for the following; UTI, nephrolithiasis, diverticulitis, constipation, bowel obstruction -labs and imaging studies ordered -labs notable for stable H&H, no white count, electrolytes within normal limits, normal creatinine, normal lactic acid, normal LFTs and lipase, negative troponin x2 -RBCs in urine however no overt UTI appreciated -no signs of ischemia appreciate on patient's EKG -I reviewed patient's CT imaging and did not appreciate a bowel obstruction and the radiology impression notes nonobstructive kidney stones nonstick pad and mild constipation On reassessment patient's symptoms have improved. Patient's daughters at bedside and I explained workup results to both patient and her daughter. I suspect her symptoms may have been caused by a kidney stone. I gave them follow up instructions, home care instructions and return precautions Lab Data 11/03/24 13:23 11/03/24 13:23 Labs: Lab Results 11/03/24 11/03/24 11/03/24 Range/Units 13:23 16:51 17:19 WBC 6.8 (4.8-10.8) X10*3/uL RBC 4.52 (4.20-5.50) X10*6/uL Hgb 13.2 (12.0-16.0) g/dl Hct 40.2 (37.0-47.0) % MCV 88.9 (80.0-98.0) fL MCH 29.2 (27.0-33.0) pg MCHC 32.8 (31.0-35.0) g/dl RDW 14.1 (11.0-16.0) % Plt Count 207 (160-400) X10*3/uL MPV 9.1 L (9.4-12.3) fL Immature Gran % (Auto) 0.1 (0.0-0.4) % Neut % (Auto) 63.6 (45-73) % Lymph % (Auto) 25.8 (20-40) % [place] % (Auto) 9.8 (2-11) % Eos % (Auto) 0.6 (0-4) % Baso % (Auto) 0.1 (0-2) % Lymph # (Auto) 1.8 (1.2-4.9) X10*3/uL [place] # (Auto) 0.7 (0.1-1.2) X10*3/uL Eos # (Auto) 0.0 (0.0-0.4) X10*3/uL Baso # (Auto) 0.0 (0.0-0.2) X10*3/uL Abs Immat Gran (auto) 0.01 (0.00-0.03) X10*3/uL Absolute Neuts (auto) 4.3 (2.0-8.3) x10*3/uL Absolute Nucleated RBC 0.000 (0.0-0.012) X10*3/uL Nucleated RBC % (auto) 0.0 (0.0-0.2) /100WBC Sodium 142 (135-145) mmol/L Potassium 3.9 (3.3-5.1) mmol/L Chloride 111 H (96-108) mmol/L Carbon Dioxide 24 (22-29) mmol/L Anion Gap 11 L (12-20) BUN 9 (9-16) mg/dL Creatinine 0.75 (0.5-1.4) mg/dL Estim Creat Clear Calc 59.7 Estimated GFR > 60 Random Glucose 103 (60-115) mg/dL Lactic Acid 1.4 (0.5-2.0) mmol/L Calcium 9.3 (8.4-10.2) mg/dL Total Bilirubin 0.6 (0.0-1.0) mg/dL Direct Bilirubin 0.2 (0.0-0.5) mg/dL AST 26 (5-31) U/L ALT 6 (0-31) U/L Alkaline Phosphatase 94 (39-117) U/L Troponin I High Sens 4.4 D 11.5 D (<3.5-17.0) ng/L Total Protein 6.8 (6.5-8.0) g/dL Albumin 3.7 (3.5-5.0) g/dL Lipase 23 (8-78) U/L Urine Color Yellow Urine Appearance Clear Urine pH 5.5 (5.0-9.0) Ur Specific [place] >= 1.030 H (1.005-1.025) Urine Protein Trace (Neg-Trace) mg/dL Urine Glucose (UA) Negative (Negative) mg/dL Urine Ketones Negative (Negative) mg/dL Urine Blood Small (1+) H (Negative) Urine Nitrite Negative (Negative) Ur Leukocyte Esterase Negative (Negative) Urine RBC 6-10 H (0-2) /HPF Urine WBC 0-5 (0-5) /HPF Ur Squamous Epith Cells 0-2 (0-2) /HPF Urine Bacteria None Seen (None Seen) Hyaline Casts 0-2 (0-2) /LPF Discharge Plan Discharge Clinical Impression: Abdominal pain Qualifiers: Abdominal location: right lower quadrant Qualified Code(s): R10.31 - Right lower quadrant pain Patient Disposition: Home, Self-Care Instructions: Kidney Stones (ED) Additional Instructions: Your pain may be caused by kidney stones. Please remain well hydrated. Please follow up with your primary care provider in the next 24-48 hours. If you develop any new or worsening symptoms please return to the emergency department. Prescriptions: No Action cyanocobalamin (vitamin B-12) 1,000 mcg Lozenge 1,000 mcg SUBLINGUAL DAILY Qty: 90 4RF Eliquis 5 mg Tablet 5 mg PO BID Qty: 180 4RF raloxifene 60 mg Tablet 60 mg PO DAILY Qty: 90 4RF cefuroxime axetil 250 mg tablet 250 mg PO BID 7 Days Qty: 14 0RF ondansetron 4 mg tablet,disintegrating 4 mg PO Q6-8H PRN (Reason: nausea and vomiting) Qty: 7 0RF omeprazole 20 mg capsule,delayed release(DR/EC) 20 mg PO BID Qty: 180 0RF atorvastatin 80 mg tablet 80 mg PO BEDTIME Qty: 90 0RF escitalopram oxalate [Lexapro] 20 mg tablet 20 mg PO DAILY clonidine HCl 0.2 mg tablet 0.2 mg PO BEDTIME clonazepam 0.5 mg tablet 0.5 mg PO BID PRN (Reason: Anxiety) metoprolol succinate 25 mg tablet extended release 24 hr 25 mg PO DAILY albuterol sulfate 90 mcg/actuation HFA aerosol inhaler 90 mcg inhalation Q4H PRN (Reason: Shortness Of Breath Or Wheezing) acetaminophen 650 mg tablet extended release 650 mg PO Q8H PRN (Reason: Pain) Interventions: ED Discharge Assessment Last Done: 11/03/24 18:04 Discharge Date/Time: 11/03/24 18:04 Print Language: Estonian
[2024-11-03] MEDS: iohexoL 350 MG/ML 100 ML INFUS..BTL IV (15:14)
[2024-11-03 16:51] VITALS: BP 136/77; PULSE 84; RESP 16; TEMP 36.6; O2SAT 99
--- NOTE | 2024-11-03 16:53 | PC.NURSE ---
multiple episodes of urinary incontinence. straight cath to obtain urine sample. <100 mL output
[2024-11-03 16:56] LABS: Appearance Urine Clear; Color Urine Yellow; Glucose Urine UA Negative (Negative); Leukocyte Esterase Urine Negative (Negative); Nitrite Urine Negative (Negative); PH 5.5 (5.0-9.0); Specific Gravity - Urine >= 1.030 (1.005-1.025); UMIC TRIGGER UACC YES; Urine Blood Small (1+) (Negative); Urine Ketones Negative (Negative); Urine Protein Trace mg/dL (Neg-Trace)
[2024-11-03 16:59] LABS: Bacteria Urine None Seen (None Seen); Hyaline Casts Urine 0-2 /LPF (0-2); Squamous Epithelial Cell Urine 0-2 /HPF (0-2); WBC Urine 0-5 /HPF (0-5)
[2024-11-03 17:48] LABS: Troponin-I High Sensitivity 11.5 ng/L (<3.5-17.0)
[2024-11-03 18:04] VITALS: BP 136/77; PULSE 84; RESP 16; TEMP 36.6; O2SAT 99
== END 2024-11-03 18:04 | disposition home or self-care (01) ==
PROVIDERS: Emergency Provider Student in an Organized Health Care Education/Training Program; PCP Internal Medicine
DX: R10.31 Right lower quadrant pain (principal); R30.0 Dysuria; R11.0 Nausea; I10 Essential (primary) hypertension; Z79.899 Other long term (current) drug therapy
CPT/HCPCS: 36415; 51701; 74177; 80048; 80076; 81001; 83605; 83690; 84484; 85025; 93005; 99284; 99285; Q9967

== ENCOUNTER → 2024-11-03 12:45 | Outpatient (BNV) | payer MEDICARE, MEDICAID, SELFPAY | PROVIDERS: Emergency Provider Student in an Organized Health Care Education/Training Program; PCP Internal Medicine; Visit Provider Internal Medicine Cardiovascular Disease | DX: R10.9 Unspecified abdominal pain (principal) | CPT/HCPCS: 93010 ==

== ENCOUNTER → 2024-11-03 12:48 | Outpatient (BNV) | payer MEDICARE, MEDICAID, SELFPAY | PROVIDERS: Emergency Provider Student in an Organized Health Care Education/Training Program; PCP Internal Medicine; Visit Provider Radiology Diagnostic Radiology | DX: N20.0 Calculus of kidney (principal); N28.1 Cyst of kidney, acquired; I71.40 Abdominal aortic aneurysm, without rupture, unspecified | CPT/HCPCS: 74177 ==

== ENCOUNTER 2025-05-28 08:35 | Outpatient (REF) | payer MEDICARE, MEDICAID, SELFPAY ==
[2025-05-28 09:42] LABS: MANUAL DIFF FLAG NO
--- OUTSIDE RECORDS SUMMARY | 2025-05-28 10:11 | XMS_ITS | Encounter Summary ---
Author Organization [facility] Address [address] [place] [address] [address] [place] [address] Care Team Providers Care Salvage Supervisor Name Role Phone Timmy Tolbert MD Primary Care Provide r Encounter Details Date Type Department Care Team (Late st Contact Info) Description 12/28/2022 Orders Only [facility] MED & PEDS [address] [place] [address] Radha Aiken LPN Social History Tobacco Use Types Packs/Day Years Used Date Smoking Tobacco: Never Assessed Comments Unknown Sex and Gender Information Value Date Recorded Sex Assigned at Female 09/04/2022 10:16 AM EDT Legal Sex Female 10:16 AM EDT Gender Identity Female 09/04/2022 10:16 AM EDT Sexual Orientation Straight 09/04/2022 10 :16 AM EDT documented as of this encounter Plan of Treatment Not on file documented as of this encounter Visit Diagnoses Not on filedocumented in this encounter Care Teams Salvage Supervisor Relationship Specialty Start Date End Date Timmy Tolbert MD [address] [place] [id number] PCP - General Internal Medicine 09/17/19 documented as of this encounter
[2025-05-28 10:41] LABS: Hematocrit 39.9 % (37.0-47.0); Hemoglobin 12.8 g/dl (12.0-16.0); Imm Gran Abs Auto 0.02 X10*3/uL (0.00-0.03); Imm Gran Pct Auto 0.2 % (0.0-0.4); Lymphocytes Absolute Auto 2.3 X10*3/uL (1.2-4.9); Mean Corpuscular HGB Conc 32.1 g/dl (31.0-35.0); Mean Corpuscular Hemoglobin 29.2 pg (27.0-33.0); Mean Corpuscular Volume 90.9 fL (80.0-98.0); NRBC Abs Auto 0.000 X10*3/uL (0.0-0.012); NRBC Pct Auto 0.0 /100WBC (0.0-0.2); Platelet Count 285 X10*3/uL (160-400); Red Blood Count 4.39 X10*6/uL (4.20-5.50); White Blood Count 8.3 X10*3/uL (4.8-10.8)
[2025-05-28 11:16] LABS: Anion Gap 11 (12-20); Blood Urea Nitrogen 17 mg/dL (9-16); Calcium 9.6 mg/dL (8.4-10.2); Carbon Dioxide 28 mmol/L (22-29); Chloride 108 mmol/L (96-108); Estimated Glomerular Filt Rate > 60; Potassium 3.2 mmol/L (3.3-5.1); Sodium 144 mmol/L (135-145)
== END 2025-05-28 08:36 | disposition home or self-care (01) ==
LOC: HO.LAB 08:35
PROVIDERS: PCP Internal Medicine; Visit Provider Registered Nurse
DX: F03.90 Unspecified dementia, unspecified severity, without behavioral disturbance, psychotic disturbance, mood disturbance, and anxiety (principal); G81.91 Hemiplegia, unspecified affecting right dominant side; H53.461 Homonymous bilateral field defects, right side; R45.1 Restlessness and agitation; M79.10 Myalgia, unspecified site; Z79.899 Other long term (current) drug therapy
CPT/HCPCS: 36415; 80048; 84443; 85025; 99212

== ENCOUNTER 2025-05-28 08:35 | Outpatient (AMB) | payer MEDICARE, MEDICAID, SELFPAY ==
--- NOTE | 2025-05-28 08:40 | MHC.OFFVIS ---
Vital Signs 05/28/25 08:40 Height 5 ft 6 in Intake Visit Reasons: f/u for dementia Commission Auditor Services: Commission Auditor Offered & Declined (Family to interpret ) Accompanied by: Family/Other Allergies hydrocodone (Vicodin) Allergy (Unknown, Verified 05/28/25 08:41) swelling ALL OVER Medication List - Last Reconciled 05/28/25 by Laurie Dong, KAREN acetaminophen ER 650 mg PO Q8H PRN albuterol sulfate 90 mcg/actuation 90 mcg inhalation Q4H PRN apixaban (Eliquis) 5 mg PO BID atorvastatin 80 mg PO BEDTIME cefuroxime axetil 250 mg PO BID 7 days cetirizine (Zyrtec) 10 mg PO DAILY PRN clonazepam 0.5 mg PO BID PRN clonidine HCl 0.2 mg PO BEDTIME cyanocobalamin (vitamin B-12) 1,000 mcg PO DAILY escitalopram oxalate (Lexapro) 20 mg PO DAILY metoprolol succinate ER 25 mg PO DAILY omeprazole 20 mg PO BID ondansetron 4 mg PO Q6-8H PRN HPI Comments Details: 75-year-old woman with CAD s/p CA, breast cancer s/p R mastectomy in 2007, DVT on Eliquis, anxiety, depression, large left frontal and occipital embolic looking infarcts, moderate cerebral atrophy and associated physical and cognitive issues. She was here with her daughter and SENIOR SOFTWARE ENGINEER. She was living at home with family checking in frequently, her son staying with her overnight, and SENIOR SOFTWARE ENGINEER services 60 hours/week. Her family and SENIOR SOFTWARE ENGINEER noted decline and change in behavior over the last month. She had been walking short distances at home with walker and some assistance, but now she was not walking as much and needed more help with transfers. No falls. She was having more episodes of urinary and bowel incontinence, and was not expressing need to use bathroom like before. She was resistant to bathing, whereas before she would participate and do what she was able to wash herself up, like washing her face and neck. She was also feeding herself, but needed assistance the last few days. Appetite was still okay. She was complaining of muscle aches and her family noted that she seemed more stiff, she was always leaning toward the right and was hunched forward when she used to sit up straight. She was crying more and was agitated at times, yelling and swearing, but no physical aggression. She was restless at night when laying in bed and sleep was not so good. [facility] Medical History (Updated 05/28/25 @ 08:45 by Laurie Dong CNP) Multifactorial dementia Right hemiparesis Nicotine dependence, cigarettes, uncomplicated Cerebral infarction VTE (venous thromboembolism) CVA, old, disturbances of vision History of non-ST elevation myocardial infarction (NSTEMI) (~2011) CAD (coronary artery disease) Hyperlipidemia Hypertension Osteopenia (~2011) History of CVA (cerebrovascular accident) (~2005) Tubular adenoma of colon (~2003) Pulmonary emboli (~12/2019) Ductal carcinoma in situ (DCIS) of right breast (~2010) COPD (chronic obstructive pulmonary disease) Arthritis Surgical History History of lithotripsy (~2012) History of colonoscopy History of right mastectomy (~2011) History of coronary angioplasty with insertion of stent (~2011) History of lumpectomy of right breast (~2010) History of reversal of tubal ligation Family History Mother Hx of skin cancer, basal cell Social History Household Members: None Housing: Apartment Are you a primary childcare provider to a significant other at home: No Do you presently have visiting nurse or other home services: Yes (time clock repairer SENIOR SOFTWARE ENGINEER/family) Patient Tobacco Use Status: Never used Tobacco Tobacco use type: Cigarette Cigarettes Per Day: 5 Years Smoked: (current smoker, onset 21yo, 1ppd x 51yrs, now 3-5cig/day - 40+PYH) e-Cigarette/Vaping Use: Currently Using service: No Current occupational status: disabled Review of Systems Const Denies chills, Denies daytime sleepiness, Reports difficulty sleeping, Denies fatigue, Denies fever(s), Denies frequent falls, Denies headache(s), Denies increased appetite, Denies poor appetite, Denies snoring, Denies weakness, Denies weight gain and Denies weight loss ENT Denies vertigo, Denies dizziness and Denies headache(s) Card Denies chest pain at rest, Denies chest pain with activity, Denies syncope, Denies leg edema and Denies palpitations Resp Denies snoring GI Denies constipation, Denies heartburn, Denies diarrhea and Denies nausea Denies urinary frequency, Reports urinary incontinence and Denies urinary urgency Musc Denies abnormal gait, Denies numbness and Denies tingling Skin/Breast Denies dry skin and Denies rash Neuro Denies abnormal gait, Denies vertigo, Denies dizziness, Denies syncope, Denies frequent falls, Denies headache(s), Denies lack of coordination, Reports memory loss, Denies numbness, Denies restless legs, Denies seizure-like activity, Denies tingling, Denies paresthesias, Denies tremor(s) and Denies weakness Psych Denies anxiety, Denies depression, Denies auditory hallucinations, Reports memory loss, Reports mood swings, Denies visual hallucinations and Denies suicidal ideation Endo Denies fatigue and Denies palpitations Physical Exam Const Other: General Appearance:? normal, in no acute distress. Skin:? no rashes, no significant birthmarks. Heart:? S1, S2 normal, no murmurs. Lungs:? clear anteriorly and posteriorly. Extremities:? no edema. Psych:? alert, cooperative with exam. Neuro Other: Mental Status:?Alert and awake. She was not able to tell me her age (says she is 28). She is able to tell me that she is here with Elida (SENIOR SOFTWARE ENGINEER), but she was not able to tell me that she was also here with her daughter or daughter's name. Difficulty following commands. Cranial Nerves:?Pupils are equal, round and reactive to light. External occular muscles are intact. R hemianopsia. Face is symmetrical. Facial sensations are normal. Tongue is midline. Palate elevates symmetrically. Shoulder shrugging is normal. Hearing to bedside conversation is normal. Motor Examination:?Mild R hemiparesis. Sensory Exam:?....? Gait Exam: In wheelchair. Cerebellar Signs:?Unable to follow directions for finger to nose. Extrapyramidal System:?No tremor, rigidity with normal facial expressions.? Pronator Drift:?Not present.? Involuntary Movements:?No tremors seen.? Speech:?Normal.? Results Reviewed Results Reviewed: CT brain WO at [facility] in March 2024: Mod atrophy, L frontal chronic and L occipital subacute infarcts MRI brain WO at [facility] in March 2024: Same as CT CTA brain and neck at [facility] in March 2024: L P2 occlusion Echocardiogram at [facility] in March 2024: OK EKG at [facility] in March 2024: NSR. Assessment & Plan Assessment & Plan (1) Multifactorial dementia: Code(s): F03.90 - Unspecified dementia, unspecified severity, without behavioral disturbance, psychotic disturbance, mood disturbance, and anxiety Category: Medical Plan: 75-year-old woman with multifactorial dementia here with her daughter and SENIOR SOFTWARE ENGINEER. They were educated about this condition, its progression, and its treatment. Reviewed testing ordered. Start memantine 5mg 1 tablet twice a day, use/side effects reviewed. (2) Right hemiparesis: Code(s): G81.91 - Hemiplegia, unspecified affecting right dominant side Category: Medical (3) Right homonymous hemianopsia: Code(s): H53.461 - Homonymous bilateral field defects, right side Category: Medical Plan . Orders: Orders TSH reflex Free T4 Today F03.90 - Unspecified dementia, unspecified severity, without behavioral disturbance, psychotic disturbance, mood disturbance, and anxiety CT head/brain wo IV con Today F03.90 - Unspecified dementia, unspecified severity, without behavioral disturbance, psychotic disturbance, mood disturbance, and anxiety Complete Blood Count Auto Diff Today F03.90 - Unspecified dementia, unspecified severity, without behavioral disturbance, psychotic disturbance, mood disturbance, and anxiety Basic Metabolic Panel Today F03.90 - Unspecified dementia, unspecified severity, without behavioral disturbance, psychotic disturbance, mood disturbance, and anxiety UA CC w/rflx Micro + Cult Today F03.90 - Unspecified dementia, unspecified severity, without behavioral disturbance, psychotic disturbance, mood disturbance, and anxiety Medications: New memantine (Namenda) 5 mg PO BID 60 tabs 5RF 30 days Coding Level of Care Code Est Pt Level 4 (75180) Diagnoses Multifactorial dementia F03.90 Right hemiparesis G81.91 Right homonymous hemianopsia H53.461
--- OUTSIDE RECORDS SUMMARY | 2025-05-28 08:57 | XMS_ITS | Patient Health Record ---
Author Organization [facility] Address [address] [place] [address] Care Team Providers Care Lard Bleacher Name Role Phone Inge Holloway MD, Timmy Primary Care Provide r Ramiro Barrett Unavailable [phone] Allergies Allergen (clinical drug ingredient) Drug/Non Drug Allergy documented on EMR Reaction Allergy Type Onset Date Status hydrocodone Hydrocodone Unknown Drug Allergy Act torsten codeine Codeine Unknown Drug Allergy Active Reason For Referral No Information Medications Medication SIG (Take, Route, Frequency, Duration) Notes Start Date End Date Status Raloxifene HCl 60 MG Oral for 90 Active clonazePAM 0.5 MG TAKE 1 TABLET BY RAVEN TH TWICE A DAY NEEDED Oral for 30 Active cloNIDine HCl 0.2 MG TAKE 1 TABLET BY MO UTH EVERY DAY Oral for 90 Active Advair Diskus 100-50 MCG/ACT INHALE 1 PUFF INTO THE LUNGS TWICE A DAY, IN THE MORNING AND EVENING APPROXIMATELY 12 HOURS APART. Inhalation for 90 Active Metoprolol Succinate ER 25 MG Oral for 90 Active Rosuvastatin Calcium 20 MG TAKE 1 TABLET BY MOUTH EVERY DAY Oral for 90 Active Eliquis 5 MG TAKE 1 TABLET BY RAVEN TH TWICE A DAY Oral for 30 Active Tylenol Arthritis Pain Active CeleXA 10 MG 1 tablet Orally Once a day for 30 day(s) Active Immunizations Vaccine Route Administration Date Status Comme nts Influenza Unknown 07/22/2024 Administered Social History Tobacco Use: Social History Observation Description Date Details (start date - stop date) Former Smoker NA - NA Alcohol Screen Question Answer Notes Did you have a drink containing alcohol in the p ast year? 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) Active confirmed Problem 994417841917080 Pre-procedural examination (Z01.818) Active confirmed Problem Diverticulosis of colon (032230710) Diverticulosis of colon (K57.30) Active confirmed Problem 434100951 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 use of anticoagulant (Z79.01) Active confirmed Problem History of adenomatous polyp of colon (794293586) History of adenomatous polyp of colon (Z86.0101) Active confirmed Vital Signs Temperature 97.9 degrees Fahrenheit 04/21/2025 Blood pressure diastolic 01 mm Hg 04/21/2025 Height 63 in 04/21/2025 Blood pressure systolic 001 mm Hg 04/21/2025 Weight 142 lbs 04/21/2025 BMI 25.15 kg/m2 04/21/2025 Encounters Encounter Location Date Provider Diagnosis [facility] [address] [place] [address] 04/21/2025 Ramiro Lincoln Bile duct abnormalit y K83.9 and History of adenomatous polyp of colon Z86.0101 Assessments Encounter Date Diagnosis (ICD Code) Assessment Notes Treatment Notes Treatment Clinical Notes Section Notes 04/21/2025 Bile duct abnormality (ICD-10 - K83.9) I DON'T THINK ANYTHING NEEDS TO BE DONE ABOUT THE ENLARGED BILE DUCT AT THIS TIME. IF SHE DEVELOP YELLOW JUANDICE, ABDOMINAL PAIN, ETC, YOU SHOUL;D CALL OR BRING HER TO THE ER Overall, Paula appears reasonably well and does not seem to be having any new or worrisome GI complaints. We did review the findings on her imaging studies in regard to the slightly dilated extrahepatic bile duct. This does not appear to represent any type of biliary obstruction given her normal LFTs in the past, and no evidence of any choledocholithiasis or pancreatic mass on the imaging studies. Therefore, this seems to be asymptomatic and I would treat it as such, particularly in light of her significant medical issues at the present time..I advised Debbie that I would not recommend any further evaluation of this slightly dilated bile duct such as an ERCP or endoscopic ultrasound. We did review that obviously if anything changes with signs of jaundice or increasing abdominal pain we can always reassess things. However, given her significant comorbidities I would much rather prefer to be conservative and avoid any invasive testing going forward. We did review her colonoscopy findings from 2022 with removal of tubular adenomas. Obviously, given her age and comorbidities, I would not recommend any type of follow-up colonoscopy. At this point, if things remain stable, Paula will see me on a prn basis. I did advise Debbie to certainly contact me if she has any problems or questions in regard to Paula that I can be of assistance with. Debbie was comfortable with this plan. Thank you again for allowing me to have participated in Paula's care. I shall continue to keep you advised of her progress as needed. Please do not hesitate to contact me if I can be of any further assistance in the future.. 04/21/2025 History of adenomatous polyp of colon (ICD-10 - Z86.0101) Overall, Paula appears reasonably well and does not seem to be having any new or worrisome GI complaints. We did review the findings on her imaging studies in regard to the slightly dilated extrahepatic bile duct. This does not appear to represent any type of biliary obstruction given her normal LFTs in the past, and no evidence of any choledocholithiasis or pancreatic mass on the imaging studies. Therefore, this seems to be asymptomatic and I would treat it as such, particularly in light of her significant medical issues at the present time..I advised Debbie that I would not recommend any further evaluation of this slightly dilated bile duct such as an ERCP or endoscopic ultrasound. We did review that obviously if anything changes with signs of jaundice or increasing abdominal pain we can always reassess things. However, given her significant comorbidities I would much rather prefer to be conservative and avoid any invasive testing going forward. We did review her colonoscopy findings from 2022 with removal of tubular adenomas. Obviously, given her age and comorbidities, I would not recommend any type of follow-up colonoscopy. At this point, if things remain stable, Paula will see me on a prn basis. I did advise Debbie to certainly contact me if she has any problems or questions in regard to Paula that I can be of assistance with. Debbie was comfortable with this plan. Thank you again for allowing me to have participated in Paula's care. I shall continue to keep you advised of her progress as needed. Please do not hesitate to contact me if I can be of any further assistance in the future.. Plan Of Treatment Future Test Test Name Order Date COLONOSCOPY 01/30/2023 Insurance Providers Payer Name Payer Address Payer Phone Subscriber Number Group Number Insured Name Patient Relationship to Insured Coverage Start Date Coverage End Date MEDICARE OF [place] [address] [place] [address] [id number] GREGORIO , PAULA Self - patient is the insured MEDICAID OF [employer] [facility] [facility] [address] [place] [phone] [id number] GREGORIO , LUZ Self - patient is the insured Medical (General) History Medical History History ICD Code [id number] weakness Right-sided breast cancer in 2011-sees Matteo Tanner COPD Arthritis Anxiety/Depression 2 [place]'s 2011--2 stents placed at that ermelinda e--sees Dr. Corbett Denies DM and renal disease Negative colonoscopy in 2009 DVT LLE--sees Dr. Tanner Hyperlipidemia Colonoscopy in 2022 with removal of tubu lar adenomas CVA in 03/[address] scan and ultrasound in October 2024 described a 9 mm extrahepatic bile duct but with a normal gallbladder, pancreas, and liver. LFTs were normal at that time as well. There was no evidence of any choledocholithiasis or pancreatic mass. Surgical History Surgery Date(Month/Year) Tubal ligation, and reversal Right mastectomy
== END 2025-05-28 09:19 | disposition home or self-care (01) ==
LOC: HO.HSM 08:36
PROVIDERS: PCP Internal Medicine; Visit Provider Registered Nurse
DX: F03.90 Unspecified dementia, unspecified severity, without behavioral disturbance, psychotic disturbance, mood disturbance, and anxiety (principal); G81.91 Hemiplegia, unspecified affecting right dominant side; H53.461 Homonymous bilateral field defects, right side
CPT/HCPCS: 99214

== ENCOUNTER 2025-06-11 11:54 | Outpatient (REF) | payer MEDICARE, MEDICAID, SELFPAY ==
--- OUTSIDE RECORDS SUMMARY | 2025-06-11 12:25 | XMS_ITS | Encounter Summary ---
Author Organization [facility] Address [address] [place] [address] [address] [place] [address] Care Team Providers Care Adult Family Home Program Manager Name Role Phone Timmy Tolbert MD Primary Care Provide r Encounter Details Date Type Department Care Team (Late st Contact Info) Description 12/28/2022 Orders Only [facility] MED & PEDS [address] [place], [place] [id number] Radha Aiken LPN Social History Tobacco Use Types Packs/Day Years Used Date Smoking Tobacco: Never Assessed Comments Unknown Sex and Gender Information Value Date Recorded Sex Assigned at Female 09/04/2022 10:16 AM EDT Legal Sex Female 10:16 AM EDT Gender Identity Female 09/04/2022 10:16 AM EDT Sexual Orientation Straight 09/04/2022 10 :16 AM EDT documented as of this encounter Plan of Treatment Upcoming Encounters Date Type Department Care Team (Late st Contact Info) Description 07/09/2025 11:00 AM EDT Office Visit [facility] MEDICINE [address] [place] [address] Timmy Tolbert MD [address] [place] [address] documented as of this encounter Visit Diagnoses Not on filedocumented in this encounter Care Teams Adult Family Home Program Manager Relationship Specialty Start Date End Date Timmy Tolbert MD [address] [place] [address] PCP - General Internal Medicine 09/17/19 documented as of this encounter
--- OUTSIDE RECORDS SUMMARY | 2025-06-11 12:25 | XMS_ITS | Patient Health Record ---
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) Active confirmed Problem [id number] Pre-procedural examination (Z01.818) Active confirmed Problem Diverticulosis of colon (571156322) Diverticulosis of colon (K57.30) Active confirmed Problem 506198174 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 use of anticoagulant (Z79.01) Active confirmed Problem History of adenomatous polyp of colon (912063113) History of adenomatous polyp of colon (Z86.0101) Active confirmed Vital Signs Temperature 97.9 degrees Fahrenheit 04/21/2025 Blood pressure diastolic 01 mm Hg 04/21/2025 Height 63 in 04/21/2025 Blood pressure systolic 001 mm Hg 04/21/2025 Weight 142 lbs 04/21/2025 BMI 25.15 kg/m2 04/21/2025 Encounters Encounter Location Date Provider Diagnosis [facility] [address] [place] [address] 04/21/2025 Ramiro Lincoln Bile duct abnormalit y [...] OF [place] [address] [place] [address] [id number] GREGORIO PAULA Self - patient is the insured MEDICAID OF [facility] [address] [place] [address] [id number] GREGORIO , PAULA Self - patient is the insured Medical (General) History Medical History History ICD Code [id number] weakness Right-sided breast cancer in 2011-sees Matteo Tanner COPD Arthritis Anxiety/Depression 2 [place]'s 2011--2 stents placed at that ermelinda e--sees [...]
[2025-06-11 13:15] LABS: Alanine Aminotransferase 15 U/L (0-31); Albumin Level 3.9 g/dL (3.5-5.0); Alkaline Phosphatase 80 U/L (39-117); Anion Gap 14 (12-20); Aspartate Amino Transferase 32 U/L (5-31); Blood Urea Nitrogen 12 mg/dL (9-16); Calcium 9.3 mg/dL (8.4-10.2); Carbon Dioxide 25 mmol/L (22-29); Chloride 104 mmol/L (96-108); Cholesterol 142 mg/dL (<200); Estimated Glomerular Filt Rate > 60; HDL Cholesterol 41 mg/dL (>40); Potassium 3.6 mmol/L (3.3-5.1); Sodium 139 mmol/L (135-145); Total Protein 6.9 g/dL (6.5-8.0); Triglycerides 151 mg/dL (<150)
== END 2025-06-11 11:55 | disposition home or self-care (01) ==
LOC: HO.HHCL 11:54
PROVIDERS: PCP Internal Medicine; Visit Provider Internal Medicine
DX: I10 Essential (primary) hypertension (principal); E78.2 Mixed hyperlipidemia
CPT/HCPCS: 36415; 80053; 80061